=== PATIENT | female | born 1955 | race Caucasian/White ===

== ENCOUNTER 2019-09-08 10:38 | Inpatient (IN) ==
[2019-09-08] MEDS ORDERED: AMIDATE ONE (10:48)
[2019-09-08] MEDS ORDERED: QUELICIN ONE (10:49)
[2019-09-08] MEDS ORDERED: VERSED 100 MG in NS 80 ML IV SCH (11:00)
[2019-09-08] MEDS: NS 1,000 ML IV ONE ×2 (11:01→14:01)
[2019-09-08] MEDS ORDERED: LEVOPHED 8 MG in D5 1/2 NS 250 ML IV SCH ×4 (11:15)
[2019-09-08] MEDS ORDERED: EPINEPHRINE 4 MG in NS 250 ML IV SCH (11:15)
[2019-09-08] MEDS ORDERED: PITRESSIN 40 UNIT in NS 100 ML IV SCH (11:15)
[2019-09-08 11:57] LABS: URINE SOURCE CATH
[2019-09-08 12:01] LABS: BASO# 0.02 X1000 (0.0-0.2); BASO% 0.1 % (0.0-0.8); EOS# 0.01 X1000 (0.0-0.7); EOS% 0.1 % (0.0-10.0); HEMATOCRIT 40.6 % (37.0-47.0); HEMOGLOBIN 12.1 g/dL (12.0-16.0); IMM GRAN# 0.27 X1000 (0.0-0.04); IMM GRAN% 1.8 % (0.0-0.5); LYMPH# 1.86 X1000 (1.2-3.4); LYMPH% 12.2 % (20.5-51.1); MCH 26.7 PG (27-31); MCHC 29.8 g/dL (33-37); MCV 89.6 FL (81-99); MONO# 0.83 X1000 (0.11-0.59); MONO% 5.4 % (1.7-9.3); MPV 10.2 FL (7.4-10.4); NEUT# 12.24 X1000 (1.4-6.5); NEUT% 80.4 % (42.2-75.2); PLT 451 X1000 (130-400); RBC 4.53 XMIL (4.2-5.4); RDW 15.7 % (11.5-14.5); WBC 15.23 X1000 (4.8-10.8)
[2019-09-08 12:06] LABS: INR 1.18; PROTIME 15.2 Seconds (11.0-16.0); PTT 29.3 Seconds (22.3-41.8)
[2019-09-08] MEDS ORDERED: NS 3,000 ML IV ONE (12:08)
--- NOTE | 2019-09-08 12:09 | Diag Imaging Result Doc PS360 ---
CHEST-1 VIEW - 09/08/2019 INDICATION: sepsis COMPARISON: None FINDINGS: There is an endotracheal tube in good position at T3-T4. Lung volumes are critically low. There is nonspecific central atelectasis or infiltrate bilaterally. Heart size is grossly normal. IMPRESSION: Good endotracheal tube placement. Electronically signed by Donny Bustos 09/08/2019 12:07 PM
[2019-09-08 12:13] LABS: BILIRUBIN URINE NEGATIVE (NEGATIVE); BLOOD URINE MODERATE (NEGATIVE); COLOR YELLOW; GLUCOSE URINE >1000 mg/dL (NEGATIVE); KETONE URINE 150 mg/dL (NEGATIVE); LEUKOCYTES URINE NEGATIVE (NEGATIVE); NITRITE URINE NEGATIVE (NEGATIVE); PH URINE 5.5; PROTEIN URINE 200 mg/dL (NEGATIVE); SP GRAVITY URINE 1.025; TURBIDITY URINE CLEAR (CLEAR); UROBILINOGEN URINE NORMAL (NORMAL)
[2019-09-08 12:14] LABS: UR EPITHELIAL CELLS <10 /HPF (<10); URINE BACTERIA NEGATIVE /HPF; URINE RBC <10 /HPF (<10); URINE WBC <10 /HPF (<10)
[2019-09-08] MEDS ORDERED: LEVAQUIN 750 MG/D5W 750 MG/150 ML IVPB IV ONE (12:22)
[2019-09-08] MEDS ORDERED: VANCOMYCIN 1 GM/NS 1 GM/250 ML IVPB IV ONE (12:22)
[2019-09-08] MEDS ORDERED: ZOSYN 4.5 GM in NS 100 ML IV ONE (12:22)
[2019-09-08 12:34] LABS: ALB/GLOB RATIO 1.3; CALCIUM 8.6 mg/dL (8.8-10.2); TOTAL BILIRUBIN 0.31 mg/dL (0.20-1.00)
[2019-09-08] MEDS ORDERED: HUMULIN R IV ONE (12:37)
[2019-09-08 12:53] LABS: CK INDEX 0.6 (0.0-2.5); CK-MB 25.15 ng/mL (0.0-5.0)
[2019-09-08] MEDS ORDERED: QUELICIN IV ONE (12:56)
[2019-09-08] MEDS ORDERED: AMIDATE IV ONE (12:56)
--- NOTE | 2019-09-08 13:25 | Diag Imaging Result Doc PS360 ---
ELBOW 2 VIEWS RIGHT - 09/08/2019 INDICATION: trauma TECHNIQUE: COMPARISON: None FINDINGS: There is some mild soft tissue gas in the anterior surface of the proximal forearm. No foreign body. No fracture or dislocation. Minimal degenerative spurring of the medial elbow. IMPRESSION: No fracture. Mild soft tissue gas in the anterior proximal forearm. Electronically signed by Donny Bustos 09/08/2019 1:23 PM
--- NOTE | 2019-09-08 13:25 | Diag Imaging Result Doc PS360 ---
ELBOW 2 VIEWS LEFT - 09/08/2019 INDICATION: trauma TECHNIQUE: COMPARISON: None FINDINGS: Bones are intact and normally aligned. Joint spaces and soft tissues are clear. IMPRESSION: Negative exam. Electronically signed by Donny Bustos 09/08/2019 1:23 PM
[2019-09-08] MEDS ORDERED: SODIUM BICARBONATE 4.2% IV ONE ×2 (13:52→15:11)
[2019-09-08 14:03] LABS: ALLEN TEST NO; BE -25.6 mmoll (-3.0-3.0); BLOOD TYPE ARTERIAL; METHB 0.3 % (0.0-1.5); O2(CT) 16.4 mL/dL (15.0-23.0); O2HB 98.6 % (95.0-99.0); PCO2(98.6) 26 mmHg (35-45); PO2(98.6) 460 mmHg (60-100); SAMPLE BLOOD; SAO2 100.1 % (95.0-100.0); SRATE 14 BPM; THB 10.9 g/dL (11.5-17.4); TVOL 500 mL
[2019-09-08 14:05] LABS: MODALITY VENTILATOR; pH(98.6) 6.93 (7.35-7.45)
[2019-09-08] MEDS ORDERED: LEVAQUIN 750 MG/D5W 750 MG/150 ML IVPB ONE (14:22)
--- NOTE | 2019-09-08 15:05 | Diag Imaging Result Doc PS360 ---
EXAM : CT HEAD/C-SPINE W/O CONTRAST HISTORY: AMS TECHNIQUE: 1. CT head without contrast 2. CT cervical spine without contrast COMPARISON: None. FINDINGS: Head: No parenchymal hemorrhage. No epidural or subdural hematoma. No subarachnoid hemorrhage. Mild chronic microvascular ischemic changes. No mass identified on this noncontrasted exam. No hydrocephalus. No skull fracture. Cervical spine: There is good alignment to the cervical spine. No precervical soft tissue swelling. No subluxation. No fracture. Small degenerative bone spurs. IMPRESSION: Head: No hemorrhage. No injury. Cervical spine: No acute fracture. This exam was performed using automated exposure control, adjustment of mA or kV according to patient size, and/or use of iterative reconstruction technique. Electronically signed by Daniel Montgomery 09/08/2019 3:03 PM
--- NOTE | 2019-09-08 15:25 | Diag Imaging Result Doc PS360 ---
EXAM: CT T-SPINE/L-SPINE W/O CON HISTORY: Trauma TECHNIQUE: 1. CT thoracic spine without contrast 2. CT lumbar spine without contrast COMPARISON: None. FINDINGS: Thoracic spine: There is good alignment. No fracture. No subluxation. Degenerative bone spurring is found throughout the mid lower thoracic spine. Trace pleural fluid. There is vascular distention. There is a 2 mm nodule either in the inferior right upper lobe or superior right middle lobe on image 157. No pneumothorax Lumbar spine: There is good alignment. No fracture. No subluxation. Small degenerative bone spurs. No aortic aneurysm. No hydronephrosis. IMPRESSION: Thoracic spine: No fracture Lumbar spine: No fracture This exam was performed using automated exposure control, adjustment of mA or kV according to patient size, and/or use of iterative reconstruction technique. Electronically signed by Daniel Montgomery 09/08/2019 3:23 PM
--- NOTE | 2019-09-08 15:29 | Diag Imaging Result Doc PS360 ---
CT ABDOMEN/PELVIS W/O CONTRAST - 09/08/2019 INDICATION: AMS COMPARISON: None FINDINGS: No radiodense renal stones. No hydronephrosis or hydroureter. The gallbladder is not visible. Abdominal organs otherwise appear normal. No free air or free fluid. Duff catheter in the urinary bladder. Uterus is absent. Rectum is normal. There is a benign intramuscular lipoma at the anterior right hip. No bowel obstruction or inflammation. No significant constipation. No visible fractures. IMPRESSION: No acute process. This exam was performed using automated exposure control, adjustment of mA or kV according to patient size, and/or use of iterative reconstruction technique Electronically signed by Donny Bustos 09/08/2019 3:26 PM
--- NOTE | 2019-09-08 15:29 | Diag Imaging Result Doc PS360 ---
EXAM: CT THORAX W/O CONTRAST INDICATION: Trauma TECHNIQUE: This exam was performed using automated exposure control, adjustment of mA or kV according to patient size, and/or use of iterative reconstruction technique. COMPARISON: None. FINDINGS: The patient is intubated. There is bilateral dependent atelectasis +/- infiltrate mainly involving the lower lobes. There is scarring at the right lung apex. There is a 1 cm nonspecific noncalcified nodule in the right perihilar region. Continued surveillance is recommended based on Fleischner Society criteria with an initial follow-up CT in 3 months. There is no significant pleural fluid collection or pneumothorax. There is no abnormal mediastinal fluid collection. There is no cardiomegaly. There are a few old rib fractures involving the sixth, seventh, and eighth ribs on the right anteriorly. No acute rib fracture is appreciated. IMPRESSION: 1.Bilateral dependent atelectasis with suggestion of superimposed infiltrates mainly involving the lower lobes. 2.1 cm noncalcified nodule in the right perihilar region that is nonspecific. Follow-up is recommended based on Fleischner Society criteria. Electronically signed by Rocco Villarreal 09/08/2019 3:27 PM
[2019-09-08] MEDS ORDERED: HUMULIN R 100 UNIT in NS 99 ML IV ONE (15:30)
[2019-09-08] MEDS ORDERED: SODIUM BICARBONATE 8.4% IV ONE (15:53)
[2019-09-08] MEDS ORDERED: ZOFRAN IV PRN (15:57)
[2019-09-08] MEDS ORDERED: SODIUM BICARBONATE 8.4% 150 MEQ in STERILE WATER INJ. 1,000 ML IV SCH (16:45)
--- NOTE | 2019-09-08 16:45 | PROVIDER DOCUMENTATION ---
This chart was entered by Beulah Zuniga Scribe, acting as scribe for Maggie Gomez MD. HPI-Critical Care - General Stated Complaint: unresponsive Time Seen by Provider: 09/08/19 11:00 Patient arrived via EMS?: Yes Source: EMS Allergies/Adverse Reactions: Allergies Allergy/AdvReac Type Severity Reaction Status Date / Time Penicillins Allergy Unknown Verified 09/08/19 12:49 - History of Present Illness-Critical Care Nature of Presenting Problem: 64yof presents to ED by EMS found unresponsive by PD when they went to do a well check. EMS reports pt was last seen on Sunday according to neighbors. EMS reprots pt was found laying on right side, covered in feces, urine, blood sugar over 600 and unresponsive. Review of Systems - Adult - REVIEW OF SYSTEMS - ADULT ROS:: unobtainable per condition Constitutional: reports: no symptoms reported Eyes: reports: no symptoms reported Ears, Nose, Mouth & Throat: reports: no symptoms reported Cardiovascular: reports: no symptoms reported Respiratory: reports: no symptoms reported Gastrointestinal: reports: no symptoms reported Genitourinary: reports: no symptoms reported Musculoskeletal: reports: no symptoms reported Integumentary: reports: no symptoms reported Neurological: reports: no symptoms reported Psychiatric: reports: no symptoms reported Endocrine: reports: no symptoms reported Hematologic/Lymphatic: reports: no symptoms reported Allergic/Immunologic: reports: no symptoms reported All Other Systems: Reviewed and Negative Past History - Adult - PAST MEDICAL HISTORY-ADULT Review of Records: reports: Nursing Assessment Review, Medications Reviewed, Social history reviewed & non-contributory. Major Childhood Illnesses: reports: denies history Cardiovascular: reports: denies history Respiratory: reports: denies history Gastrointestinal: reports: denies history Obstetrical/Gynecological: reports: denies history Genitourinary: reports: denies history Musculoskeletal: reports: denies history Neurological: reports: denies history Endocrine/Immune: reports: denies history Other Conditions: reports: denies history - IMMUNIZATION STATUS Childhood Immunizations: See Nurse Assessment Flu Vaccine: See Nurse Assessment - FAMILY HISTORY Family History: reviewed, not pertinent Physical Exam-General - PHYSICAL EXAM-ADULT Initial Vital Signs Reviewed: Yes (Hypotensive, hypothermic ) - CONSTITUTIONAL General Appearance: obtunded - EYES Eyes: other (Pupils 3 mm and equal) - HEAD, EARS, NOSE, MOUTH & THROAT HENMT: other (Right frontal chronic appearing ulcer) - NECK Neck: supple - RESPIRATORY Respiratory: rales (Diffuse) - CHEST (BREASTS) Chest/Breast: other (Superficial excoriation underneath right breast, erythematous rash underneath both breasts) - GASTROINTESTINAL (ABDOMEN) Abdominal Exam: distended, other (Bruising noted on abdominal wall (x4 quadrants)) - GENITOURINARY Female Genitalia/Pelvic Exam: other (External exam: mild erythematous vulvar and inguinal rash; no skin tears, lacerations or bruising) - LYMPHATIC Lymphatic: no adenopathy - MUSCULOSKELETAL Back Exam: normal inspection Extremity: other (I/O in right lower leg, placed by EMS Bilateral elbow bruising, right knee- chronic appearing coin shaped ulcer w/o evidence of infection) - SKIN Integumentary: other (skin break-down to left anterior knee, and under right breast; ulcer to right knee; multiple bruises to abdomen) - NEUROLOGIC Neurologic: other (GCS 3) Progress - PLAN OF CARE/RESULTS Progress/Plan/Lab Results: Laboratory Results - last 24 hr 09/08/19 09/08/19 09/08/19 11:41 11:41 11:41 WBC RBC Hgb Hct MCV MCH MCHC RDW Std Deviation Plt Count MPV Immature Gran % (Auto) Neut % (Auto) Lymph % (Auto) [place] % (Auto) Eos % (Auto) Baso % (Auto) Immature Gran # (Auto) Neut # (Auto) Lymph # (Auto) [place] # (Auto) Eos # (Auto) Baso # (Auto) PT INR PTT (Actin FS) Specimen Type Sample Site pH pCO2 pO2 HCO3 Base Excess Oxyhemoglobin ABG O2 Sat (Calculated) ABG O2 Saturation ABG Carboxyhemoglobin ABG Methemoglobin Aris Test A-a O2 Difference Total Hemoglobin Lactate Blood Gas Modality Spontaneous Rate FiO2 % Tidal Volume PEEP Sodium 142 Potassium 4.0 Chloride 97 L Carbon Dioxide 6 L Anion Gap 39 BUN 66 H Creatinine 2.0 H Estimated GFR/1.73 m2 25 BUN/Creatinine Ratio 33 Glucose 891 H* POC Glucose Calculated Osmolality 346 Calcium 8.6 L Total Bilirubin 0.31 AST 57 H ALT 33 Alkaline Phosphatase 115 H Creatine Kinase 4184 H Creatine Kinase Index 0.6 CK-MB (CK-2) 25.15 H Troponin T High Sens 31 H Total Protein 7.0 Albumin 4.0 Globulin 3.0 Albumin/Globulin Ratio 1.3 Plasma Lactate 1.5 TSH Urine Source Urine Color Urine Turbidity Urine pH Ur Specific Haskins Urine Protein Ur Glucose (Stick) Ur Ketones (Stick) Urine Blood Urine Nitrite Urine Bilirubin Urobilinogen Dipstick Urine Leukocytes Urine WBC (Auto) Urine RBC (Auto) U Epithel Cells (Auto) Urine Bacteria (Auto) Salicylates Urine Opiates Screen Ur Oxycodone Screen Ur Methadone, Qual Acetaminophen Ur Barbiturates Screen Ur Phencyclidine Scrn Ur Amphetamines Screen U Benzodiazepines Scrn Urine Cocaine Screen U Cannabinoids Screen Acetone Level 09/08/19 09/08/19 09/08/19 11:41 11:41 11:41 WBC 15.23 H RBC 4.53 Hgb 12.1 Hct 40.6 MCV 89.6 MCH 26.7 L MCHC 29.8 L RDW Std Deviation 15.7 H Plt Count 451 H MPV 10.2 Immature Gran % (Auto) 1.8 H Neut % (Auto) 80.4 H Lymph % (Auto) 12.2 L Flagler % (Auto) 5.4 Eos % (Auto) 0.1 Baso % (Auto) 0.1 Immature Gran # (Auto) 0.27 H Neut # (Auto) 12.24 H Lymph # (Auto) 1.86 Flagler # (Auto) 0.83 H Eos # (Auto) 0.01 Baso # (Auto) 0.02 PT 15.2 INR 1.18 PTT (Actin FS) 29.3 Specimen Type Sample Site pH pCO2 pO2 HCO3 Base Excess Oxyhemoglobin ABG O2 Sat (Calculated) ABG O2 Saturation ABG Carboxyhemoglobin ABG Methemoglobin Aris Test A-a O2 Difference Total Hemoglobin Lactate Blood Gas Modality Spontaneous Rate FiO2 % Tidal Volume PEEP Sodium Potassium Chloride Carbon Dioxide Anion Gap BUN Creatinine Estimated GFR/1.73 m2 BUN/Creatinine Ratio Glucose POC Glucose Calculated Osmolality Calcium Total Bilirubin AST ALT Alkaline Phosphatase Creatine Kinase Creatine Kinase Index CK-MB (CK-2) Troponin T High Sens Total Protein Albumin Globulin Albumin/Globulin Ratio Plasma Lactate TSH Urine Source CATH Urine Color YELLOW Urine Turbidity CLEAR Urine pH 5.5 Ur Specific Haskins 1.025 Urine Protein 200 A Ur Glucose (Stick) >1000 A Ur Ketones (Stick) 150 A Urine Blood MODERATE A Urine Nitrite NEGATIVE Urine Bilirubin NEGATIVE Urobilinogen Dipstick NORMAL Urine Leukocytes NEGATIVE Urine WBC (Auto) <10 Urine RBC (Auto) <10 U Epithel Cells (Auto) <10 Urine Bacteria (Auto) NEGATIVE Salicylates Urine Opiates Screen Ur Oxycodone Screen Ur Methadone, Qual Acetaminophen Ur Barbiturates Screen Ur Phencyclidine Scrn Ur Amphetamines Screen U Benzodiazepines Scrn Urine Cocaine Screen U Cannabinoids Screen Acetone Level 09/08/19 09/08/19 09/08/19 11:41 11:41 11:41 WBC RBC Hgb Hct MCV MCH MCHC RDW Std Deviation Plt Count MPV Immature Gran % (Auto) Neut % (Auto) Lymph % (Auto) [place] % (Auto) Eos % (Auto) Baso % (Auto) Immature Gran # (Auto) Neut # (Auto) Lymph # (Auto) [place] # (Auto) Eos # (Auto) Baso # (Auto) PT INR PTT (Actin FS) Specimen Type Sample Site pH pCO2 pO2 HCO3 Base Excess Oxyhemoglobin ABG O2 Sat (Calculated) ABG O2 Saturation ABG Carboxyhemoglobin ABG Methemoglobin Aris Test A-a O2 Difference Total Hemoglobin Lactate Blood Gas Modality Spontaneous Rate FiO2 % Tidal Volume PEEP Sodium Potassium Chloride Carbon Dioxide Anion Gap BUN Creatinine Estimated GFR/1.73 m2 BUN/Creatinine Ratio Glucose POC Glucose Calculated Osmolality Calcium Total Bilirubin AST ALT Alkaline Phosphatase Creatine Kinase Creatine Kinase Index CK-MB (CK-2) Troponin T High Sens Total Protein Albumin Globulin Albumin/Globulin Ratio Plasma Lactate TSH Urine Source Urine Color Urine Turbidity Urine pH Ur Specific Haskins Urine Protein Ur Glucose (Stick) Ur Ketones (Stick) Urine Blood Urine Nitrite Urine Bilirubin Urobilinogen Dipstick Urine Leukocytes Urine WBC (Auto) Urine RBC (Auto) U Epithel Cells (Auto) Urine Bacteria (Auto) Salicylates < 3.00 L Urine Opiates Screen NONE DETECTED Ur Oxycodone Screen NONE DETECTED Ur Methadone, Qual NONE DETECTED Acetaminophen < 1.2 L Ur Barbiturates Screen NONE DETECTED Ur Phencyclidine Scrn NONE DETECTED Ur Amphetamines Screen NONE DETECTED U Benzodiazepines Scrn NONE DETECTED Urine Cocaine Screen NONE DETECTED U Cannabinoids Screen NONE DETECTED Acetone Level SMALL A 09/08/19 09/08/19 09/08/19 13:30 13:40 15:23 WBC RBC Hgb Hct MCV MCH MCHC RDW Std Deviation Plt Count MPV Immature Gran % (Auto) Neut % (Auto) Lymph % (Auto) [place] % (Auto) Eos % (Auto) Baso % (Auto) Immature Gran # (Auto) Neut # (Auto) Lymph # (Auto) [place] # (Auto) Eos # (Auto) Baso # (Auto) PT INR PTT (Actin FS) Specimen Type ARTERIAL Sample Site R BRACHIAL pH 6.93 L* pCO2 26 L pO2 460 H HCO3 5.0 L Base Excess -25.6 L Oxyhemoglobin 98.6 ABG O2 Sat (Calculated) 16.4 ABG O2 Saturation 100.1 H ABG Carboxyhemoglobin 1.20 ABG Methemoglobin 0.3 Aris Test NO A-a O2 Difference 221.0 Total Hemoglobin 10.9 L Lactate 0.90 Blood Gas Modality VENTILATOR Spontaneous Rate 14 FiO2 % 100.0 Tidal Volume 500 PEEP 5.0 Sodium Potassium Chloride Carbon Dioxide Anion Gap BUN Creatinine Estimated GFR/1.73 m2 BUN/Creatinine Ratio Glucose POC Glucose 500 H Calculated Osmolality Calcium Total Bilirubin AST ALT Alkaline Phosphatase Creatine Kinase Creatine Kinase Index CK-MB (CK-2) Troponin T High Sens Total Protein Albumin Globulin Albumin/Globulin Ratio Plasma Lactate TSH 1.36 Urine Source Urine Color Urine Turbidity Urine pH Ur Specific Haskins Urine Protein Ur Glucose (Stick) Ur Ketones (Stick) Urine Blood Urine Nitrite Urine Bilirubin Urobilinogen Dipstick Urine Leukocytes Urine WBC (Auto) Urine RBC (Auto) U Epithel Cells (Auto) Urine Bacteria (Auto) Salicylates Urine Opiates Screen Ur Oxycodone Screen Ur Methadone, Qual Acetaminophen Ur Barbiturates Screen Ur Phencyclidine Scrn Ur Amphetamines Screen U Benzodiazepines Scrn Urine Cocaine Screen U Cannabinoids Screen Acetone Level Orders Category Date Time Status Admit [facility] Routine AdmDCTranf 09/08/19 15:57 Active Activity - Strict Bedrest ORDERED Care 09/08/19 15:57 Active Apply Mechanical Device [QM] ORDERED Care 09/08/19 18:07 Active Cardiac Monitoring NOW Care 09/08/19 11:12 Completed Central Line Placement per MD/ NOW Care 09/08/19 11:44 Completed Check glucose DIRECTED Care 09/08/19 14:24 Completed DVT/PE Risk Assess/Protocol [QM] ORDERED Care 09/08/19 11:01 Completed Duff Cath Insertion ORDERED Care 09/08/19 11:01 Active IV Insertion ORDERED Care 09/08/19 11:01 Completed IV Insertion NOW Care 09/08/19 11:12 Completed Intake and Output-Strict ORDERED Care 09/08/19 11:01 Active Notify Physician ORDERED Care 09/08/19 11:01 Active Notify Physician if: ORDERED Care 09/08/19 11:01 Active Notify Provider of NEWS Score NOW Care 09/08/19 11:12 Active Nursing- MD Consult Request ROUTINE Care 09/08/19 15:57 Completed Pelvic set up DIRECTED Care 09/08/19 14:24 Completed Resuscitation Status Routine Care 09/08/19 15:47 Ordered Sepsis Bolus Completion ORDERED Care 09/08/19 11:01 Completed Vital Signs Order Q1H Care 09/08/19 18:07 Completed Vital Signs Order Q30M Care 09/08/19 11:01 Completed Z-Document. for Tele Applied ORDERED Care 09/08/19 18:07 Completed Physician/Provider Consults Routine Cons 09/08/19 15:57 Ordered Social Service Consult Routine Cons 09/08/19 18:07 Active NPO Diet 09/08/19 15:59 Active CHEST-1 VIEW [RAD] Stat Exams 09/08/19 11:12 Completed CHEST-PORTABLE [RAD] Routine Exams 09/09/19 06:[address] ABDOMEN/PELVIS W/O CONTRAST [CT] Stat Exams 09/08/19 12:[address] HEAD/C-SPINE W/O CONTRAST [CT] Stat Exams 09/08/19 11:[address] T-SPINE/L-SPINE W/O CON [CT] Stat Exams 09/08/19 12:[address] THORAX W/O CONTRAST [CT] Stat Exams 09/08/19 12:47 Completed ELBOW 2 VIEWS LEFT [RAD] Stat Exams 09/08/19 12:53 Completed ELBOW 2 VIEWS RIGHT [RAD] Stat Exams 09/08/19 12:53 Completed ABG [RESP] Routine Lab 09/08/19 13:30 Completed ACETAMINOPHEN [TDM] Stat Lab 09/08/19 11:41 Completed BLOOD CULTURE [BLDCUL] Stat Lab 09/08/19 13:40 Results CBC WITH DIFF [HEME] Q24H Lab 09/09/19 06:00 Ordered CBC WITH DIFF [HEME] Q24H Lab 09/10/19 06:00 Ordered CBC WITH DIFF [HEME] Q24H Lab 09/11/19 06:00 Ordered CBC WITH DIFF [HEME] Q24H Lab 09/12/19 06:00 Ordered CBC WITH DIFF [HEME] Q24 Lab 09/13/19 06:00 Ordered CBC WITH DIFF [HEME] Q24 Lab 09/14/19 06:00 Ordered CBC WITH DIFF [HEME] Q24 Lab 09/15/19 06:00 Ordered CBC WITH DIFF [HEME] Stat Lab 09/08/19 11:45 Completed CK PROFILE [SP CHEM] Stat Lab 09/08/19 11:41 Completed COMPREHENSIVE METABOLIC PANEL [CHEM] Q24 Lab 09/09/19 06:00 Ordered COMPREHENSIVE METABOLIC PANEL [CHEM] Q24 Lab 09/10/19 06:00 Ordered COMPREHENSIVE METABOLIC PANEL [CHEM] Q24 Lab 09/11/19 06:00 Ordered COMPREHENSIVE METABOLIC PANEL [CHEM] Q24 Lab 09/12/19 06:00 Ordered COMPREHENSIVE METABOLIC PANEL [CHEM] Q24 Lab 09/13/19 06:00 Ordered COMPREHENSIVE METABOLIC PANEL [CHEM] Q24 Lab 09/14/19 06:00 Ordered COMPREHENSIVE METABOLIC PANEL [CHEM] Q24 Lab 09/15/19 06:00 Ordered COMPREHENSIVE METABOLIC PANEL [CHEM] Stat Lab 09/08/19 11:41 Completed Ketone [ACETONE SERUM] [CHEM] Stat Lab 09/08/19 11:41 Completed LACTATE, PLASMA [CHEM] Lab 09/08/19 17:16 Completed LACTATE, PLASMA [CHEM] [facility] Lab 09/08/19 11:41 Completed MAGNESIUM [CHEM] Q24 Lab 09/09/19 06:00 Ordered MAGNESIUM [CHEM] Q24 Lab 09/10/19 06:00 Ordered MAGNESIUM [CHEM] Q24 Lab 09/11/19 06:00 Ordered MAGNESIUM [CHEM] Q24 Lab 09/12/19 06:00 Ordered MAGNESIUM [CHEM] Q24 Lab 09/13/19 06:00 Ordered MAGNESIUM [CHEM] Q24 Lab 09/14/19 06:00 Ordered MAGNESIUM [CHEM] Q24 Lab 09/15/19 06:00 Ordered PROTIME WITH INR [COAG] Stat Lab 09/08/19 11:45 Completed PTT [COAG] Stat Lab 09/08/19 11:41 Completed SALICYLATES [TDM] Stat Lab 09/08/19 11:41 Completed SPUTUM CULTURE WITH GRAM STAIN [RM] Routine Lab 09/08/19 16:18 Results TROPONIN T HIGH SENSITIVITY Stat Lab 09/08/19 11:45 Completed TSH Stat Lab 09/08/19 13:40 Completed URINALYSIS W/POSS RFLX CULT [URINALYSIS] Stat Lab 09/08/19 11:53 Completed URINE DRUG SCREEN Stat Lab 09/08/19 11:41 Completed 0.9% Sodium Chloride Inj [Ns] 1,000 ml Med 09/08/19 11:01 Discontinued IV 999 mls/hr 0.9% Sodium Chloride Inj [Ns] 100 ml Med 09/08/19 11:15 Active Vasopressin [Pitressin] 40 unit IV As Directed mls/hr 0.9% Sodium Chloride Inj [Ns] 250 ml Med 09/08/19 11:15 Active Epinephrine 4 mg IV As Directed mls/hr 0.9% Sodium Chloride Inj [Ns] 3,000 ml Med 09/08/19 12:08 Discontinued IV Per Protocol mls/hr 0.9% Sodium Chloride Inj [Ns] 80 ml Med 09/08/19 11:00 Discontinued Midazolam [Versed] 100 mg IV As Directed mls/hr 0.9% Sodium Chloride Inj [Ns] 99 ml Med 09/08/19 15:30 Discontinued Insulin Human Regular [Humulin R] 100 unit IV Per Protocol mls/hr Acetaminophen [Tylenol] Med 09/08/19 15:57 Active 650 mg PO Q6H PRN PRN Albuterol 2.5MG/Ipratrop 0.5MG [Duoneb (A & A)] Med 09/08/19 19:30 Active 3 ml INH RTQ4H Budesonide [Pulmicort] Med 09/08/19 19:30 Active 0.5 mg INH RTBID Dextrose 5%-0.45% NaCl Inj [D5 1/2 Ns] 250 ml Med 09/08/19 11:15 Active Norepinephrine [Levophed] 8 mg IV As Directed mls/hr Etomidate [Amidate] Med 09/08/19 12:56 Discontinued 20 mg IV NOW ONE Etomidate [Amidate] Med 09/08/19 10:48 Discontinued 40 mg .ROUTE .STK-MED ONE Insulin Human Regular [Humulin R] Med 09/08/19 12:37 Discontinued 12 unit IV NOW ONE Levofloxacin 750 mg/D5w [Levaquin 750 mg/D5w] Med 09/08/19 14:22 Discontinued 750 mg in 150 ml .ROUTE As directed Levofloxacin 750 mg/D5w [Levaquin 750 mg/D5w] Med 09/08/19 12:22 Discontinued 750 mg in 150 ml IV NOW Linezolid 600 mg/D5w [Zyvox 600 mg/D5w] Med 09/08/19 16:15 Active 600 mg in 300 ml IV Q12H Meropenem [Merrem] 500 mg Med 09/08/19 16:15 Active 0.9% Sodium Chloride Inj [Ns] 50 ml IV Q8H Ondansetron [Zofran] Med 09/08/19 15:57 Active 4 mg IV Q4H PRN PRN Piperacillin/Tazobactam [Zosyn] 4.5 gm Med 09/08/19 12:22 Discontinued 0.9% Sodium Chloride Inj [Ns] 100 ml IV NOW Sodium Bicarbonate 4.2% Med 09/08/19 13:52 Discontinued 5 meq IV NOW ONE Sodium Bicarbonate 4.2% Med 09/08/19 15:11 Discontinued 5 meq IV NOW ONE Sodium Bicarbonate 8.4% Med 09/08/19 15:53 Discontinued 50 meq IV NOW ONE Succinylcholine [Quelicin] Med 09/08/19 12:56 Discontinued 100 mg IV NOW ONE Succinylcholine [Quelicin] Med 09/08/19 10:49 Discontinued 200 mg .ROUTE .STK-MED ONE Vancomycin 1 gm/Ns Med 09/08/19 12:22 Discontinued 1 gm in 250 ml IV NOW Aerosol Treatments Routine Ot 09/08/19 15:57 Completed O2 Per Protocol Stat Ot 09/08/19 11:12 Completed Pulse Oximetry Routine Ot 09/08/19 15:57 Completed Telemetry [OM.EQ] Routine Oth 09/08/19 18:07 Active Ventilator Order Routine Ot 09/08/19 15:07 Active EKG [EKG] Routine Ther 09/09/19 08:00 Ordered Echo Spec/Color Doppler Routine Ther 09/09/19 07:00 Ordered Transfer/Admit Order [TRANSFER] Routine Transfer 09/08/19 15:45 Completed 1056-Atomodate 1057-Succs 1058- Intubation; secured 7.5inch, 22@lip and good color change Result Diagrams: 09/08/19 11:41 09/08/19 19:27 - XRAY 1 XRAY: Bilateral Impression: See EMR Report (CHEST-1 VIEW - 09/08/2019 INDICATION: sepsis COMP ARISON: None FINDINGS: There is an endotracheal tube in good position at T3- T4. Lung volumes are critically low. There is nonspecific central atelectasis or infiltrate bilaterally. Heart size is grossly normal. IMPRESSION: Good endotracheal tube placement. Electronically signed by Donny Bustos 09/08/2019 12:07 PM 09/08/19 1207 Interpreting Physician: Donny Bustos MD Dictated Date/Time: 09/08/19 1200) 2 XRAY: Right XRAY Study: Elbow Impression: See EMR Report (IMPRESSION: No fracture. Mild soft tissue gas in the anterior proximal forearm. Electronically signed by Donny Bustos 09/08/2019 1 :23 PM) 3 XRAY: Left XRAY Study: Elbow Impression: See EMR Report (IMPRESSION: Negative exam. Electronically signed b y Donny Bustos 09/08/2019 1:23 PM) - CT/MRI 1 CT Study: Head Impression: See EMR Report (EXAM : CT HEAD/C-SPINE W/O CONTRAST HISTORY: AMS TECHNIQUE: 1. CT head without contrast 2. CT cervical spine without contrast COMPARISON: None. FINDINGS: Head: No parenchymal hemorrhage. No epidural or subdural hematoma. No subarachnoid hemorrhage. Mild chronic microvascular ischemic changes. No mass identified on this noncontrasted exam. No hydrocephalus. No skull fracture. Cervical spine: There is good alignment to the cervical spine. No precervical soft tissue swelling. No subluxation. No fracture. Small degenerative bone spurs. IMPRESSION: Head: No hemorrhage. No injury. Cervical spine: No acute fracture. This exam was performed using automated exposure control, adjustment of mA or kV according to patient size, and/or use of iterative reconstruction technique. Electronically signed by Daniel Montgomery 09/08/2019 3:03 PM 09/08/19 1503 Interpreting Physician: Daniel Montgomery MD Dictated Date/Time: 09/08/19 [id number]) 2 CT Study: Lumbar Spine, Thorax Impression: See EMR Report (IMPRESSION: Thoracic spine: No fracture Lumbar spine: No fracture This exam was performed using automated exposure control, adjustment of mA or kV according to patient size, and/or use of iterative reconstruction technique. Electronically signed by Daniel Montgomery 09/08/2019 3:23 PM) 3 CT Study: Abdomen, Pelvis Impression: See EMR Report (IMPRESSION: No acute process. This exam was performed using automated exposure control, adjustment of mA or kV according to patient size, and/or use of iterative reconstruction technique Electronically signed by Donny Bustos 09/08/2019 3:26 PM) 4 CT Study: other (chest) Impression: See EMR Report (IMPRESSION: 1.Bilateral dependent atelectasis with suggestion of superimposed infiltrates mainly involving the lower lobes. 2.1 cm noncalcified nodule in the right perihilar region that is nonspecific. Follow-up is recommended based on Fleischner Society criteria. Electronically signed by Rocco Villarreal 09/08/2019 3:27 PM 09/08/19 1527) - CONSULTS/PCP/HOSPITALIST Notification #1 *Consult/PCP/Hospitalist*: Hospitalist Time Discussed: 15:45 Consult Disposition: Admit (Dr. Garcia) #2 Consult: Clark Magaña/S.ACarlaNCarlaECarla Nurse Time Discussed: 16:42 Consult Disposition: other (advised that there is a 72hr window allowed for Evidence collection so contact the local police to see if they want collection then call her back if wanted) Procedures - INTUBATION Time of Intubation: 10:58 Intubation Method: orotracheal Equipment: Glidescope Tube Size (cm): 7.5 Pretreated with 100% Oxygen?: Yes Breath Sounds after Intubation: equal Intubation Complications: no complications Vent Settings: See Respiratory Therapy Notes Procedure Comment: good color change; secured 21@lip Departure - Departure Date of Disposition Decision: 09/08/19 Time of Disposition Decision: 12:24 DIAGNOSIS: Metabolic acidosis Sepsis Qualifiers: Sepsis type: sepsis due to unspecified organism Sepsis acute organ dysfunction status: with acute organ dysfunction Acute respiratory failure type: with hypoxia Severe sepsis shock status: without septic shock Pneumonia Qualifiers: Pneumonia type: due to unspecified organism Laterality: bilateral Lung location: lower lobe of lung Qualified Code(s): J18.1 - Lobar pneumonia, unspecified organism Altered mental status Qualifiers: Altered mental status type: coma Coma depth: Jessi coma 3-8 Coma timing: at arrival to emergency department Qualified Code(s): R40.2432 - Jessi coma scale score 3-8, at arrival to emergency department Disposition: ADMITTED INPATIENT 09 Certified Medical Emergency: Emergent Condition: Critical - Critical Care Note This patient required my direct & personal management of CC.: Yes Total Time (mins): 360 Critical Care Statement: This patient required my direct personal management to treat or rule out processes, the absence of which, could potentiallly result in sudden, clinically significant life or limb threatening deterioration. Attestation - Physician/ ANDREW Attestation Patient care was provided by Advanced Practice Provider:: No The physician spent face to face time with patient:: Yes Advanced Practice Provider documentation review:: Supervising physician onsite and consulted in the evaluation and care of this patient. The physician did have a face to face encounter with the patient. This chart was documented by the indicated scribe, (Beulah Zuniga, Cindy) and accurately reflects the services I performed and decisions made by me, Maggie Gomez MD, as attested by the provider's signature.
[2019-09-08] MEDS: ZYVOX 600 MG/D5W 600 MG/300 ML IVPB IV SCH (17:18)
[2019-09-08 17:22] LABS: ACETAMINOPHEN < 1.2 ug/mL (10-30); SALICYLATES < 3.00 mg/dL (3-10); UR AMPHETAMINES QUAL NONE DETECTED (NONE DETECT); UR BARBITUATES QUAL NONE DETECTED (NONE DETECT); UR BENZODIAZEPIN QUAL NONE DETECTED (NONE DETECT); UR CANNABINOIDS QUAL NONE DETECTED (NONE DETECT); UR COCAINE QUAL NONE DETECTED (NONE DETECT); UR METHADONE QUAL NONE DETECTED (NONE DETECT); UR OPIATES QUAL NONE DETECTED (NONE DETECT); UR OXYCODONE QUAL NONE DETECTED (NONE DETECT); UR PCP QUAL NONE DETECTED (NONE DETECT)
[2019-09-08] MEDS ORDERED: D5 1/2 NS 1,000 ML IV PRN (18:34)
[2019-09-08] MEDS ORDERED: D50W SYRINGE IV PRN (18:34)
[2019-09-08 18:39] LABS: ALLEN TEST YES; BE -19.6 mmoll (-3.0-3.0); BLOOD TYPE ARTERIAL; HCO3-(ACT) 9.7 mmoll (20.0-26.0); METHB 0.8 % (0.0-1.5); O2(CT) 17.2 mL/dL (15.0-23.0); O2HB 97.8 % (95.0-99.0); PO2(98.6) 485 mmHg (60-100); SAMPLE BLOOD; SAO2 99.4 % (95.0-100.0); SRATE 15 BPM; THB 11.5 g/dL (11.5-17.4); TVOL 500 mL
[2019-09-08 18:40] LABS: pH(98.6) 7.19 (7.35-7.45)
[2019-09-08 18:41] LABS: MODALITY VENTILATOR; PCO2(98.6) 17 mmHg (35-45)
[2019-09-08] MEDS: MERREM 500 MG in NS 50 ML IV SCH (18:48)
[2019-09-08] MEDS ORDERED: POTASSIUM CHLORIDE 20% LIQUID PO PRN (19:20)
[2019-09-08] MEDS ORDERED: POTASSIUM CHLORIDE 40 MEQ/SWI 40 MEQ/100 ML IVPB IV PRN (19:20)
[2019-09-08] MEDS ORDERED: SODIUM PHOSPHATE 30 MMOL in D5W 250 ML IV PRN (19:20)
[2019-09-08] MEDS ORDERED: POTASSIUM CHLORIDE 10% LIQUID PO PRN (19:20)
[2019-09-08] MEDS ORDERED: SODIUM BICARBONATE 8.4% 100 MEQ in STERILE WATER INJ. 500 ML IV PRN (19:20)
[2019-09-08] MEDS ORDERED: MAGNESIUM SULFATE 2 GM/S.W.I. 2 GM/50 ML IVPB IV PRN (19:20)
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
[2019-09-08] MEDS: DUONEB (A & A) INH SCH ×2 (19:50→23:30)
[2019-09-08] MEDS: PULMICORT INH SCH (19:50)
[2019-09-08 19:56] LABS: UR CREAT RANDOM 35.9 mg/dL (11-20); UR PROT RANDOM 65.7 mg/dL
[2019-09-08 20:16] LABS: INR 1.1; PROTIME 14.4 Seconds (11.0-16.0)
[2019-09-08 20:18] LABS: MAGNESIUM 2.3 mg/dL (1.5-2.7); PHOSPHORUS 4.5 mg/dL (2.7-4.5)
[2019-09-08 20:37] LABS: ALBUMIN 3.2 g/dL (3.5-5.0); CALCIUM 7.6 mg/dL (8.8-10.2); CREATININE 1.8 mg/dL (0.5-0.9); POTASSIUM 2.5 mmol/L (3.5-5.1); TOTAL BILIRUBIN 0.31 mg/dL (0.20-1.00); TOTAL PROTEIN 6.4 g/dL (6.3-8.3)
[2019-09-08 20:49] LABS: HEMOGLOBIN A1C 11.5 % (4.8-6.0)
--- NOTE | 2019-09-08 20:58 | Diag Imaging Result Doc PS360 ---
EXAM: KNEE 1-2 VIEWS-LEFT HISTORY: knee contusion TECHNIQUE: Two views COMPARISON: None. FINDINGS: Prior orthopedic replacement of the knee. Good alignment to the femoral and tibial components. No fracture. No dislocation. IMPRESSION: No acute abnormality. Electronically signed by Daniel Montgomery 09/08/2019 8:55 PM
--- NOTE | 2019-09-08 20:59 | Diag Imaging Result Doc PS360 ---
EXAM: KNEE 1-2 VIEWS-RIGHT HISTORY: knee contusion TECHNIQUE: Two views COMPARISON: None. FINDINGS: No fracture. No dislocation. Mild joint space narrowing. IMPRESSION: Mild arthritis Electronically signed by Daneil Montgomery 09/08/2019 8:56 PM
[2019-09-08] MEDS: POTASSIUM CHLORIDE 20 MEQ/SWI 20 MEQ/100 ML IVPB IV SCH ×2 (21:07→23:14)
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
[2019-09-08] MEDS: HUMULIN R 100 UNIT in NS 100 ML IV SCH (22:29)
[2019-09-08 22:36] LABS: ALLEN TEST YES; BE -10.5 mmoll (-3.0-3.0); BLOOD TYPE ARTERIAL; HCO3-(ACT) 16.8 mmoll (20.0-26.0); METHB 0.7 % (0.0-1.5); O2(CT) 13.8 mL/dL (15.0-23.0); O2HB 97.7 % (95.0-99.0); PCO2(98.6) 23 mmHg (35-45); PO2(98.6) 201 mmHg (60-100); SAMPLE BLOOD; SAO2 99.6 % (95.0-100.0); SRATE 14 BPM; THB 9.7 g/dL (11.5-17.4); TVOL 650 mL; pH(98.6) 7.37 (7.35-7.45)
[2019-09-08 22:39] LABS: MODALITY VENTILATOR
--- NOTE | 2019-09-08 22:54 | EKG Report ---
Test Performed on : 09/08/2019 10:17:04 PM Test Reason : unresponsive Blood Pressure : / mmHG Vent. Rate : 110 BPM Atrial Rate : 110 BPM P-R Int : 138 ms QRS Dur : 096 ms QT Int : 342 ms P-R-T Axes : 051 043 192 degrees QTc Int : [address] & T wave abnormality, consider inferolateral ischemia Abnormal ECG No previous ECGs available Confirmed by Marcus Jerez MD ([id number]) on 09/09/2019 7:31:18 AM
[2019-09-08 23:22] LABS: CALCIUM 7.9 mg/dL (8.8-10.2); CREATININE 1.7 mg/dL (0.5-0.9); PHOSPHORUS 2.6 mg/dL (2.7-4.5)
[2019-09-08 23:23] LABS: POTASSIUM 2.5 mmol/L (3.5-5.1)
[2019-09-08] MEDS: PROTONIX IV SCH (23:25)
[2019-09-08] MEDS: LOVENOX SUBQ SCH (23:25)
[2019-09-08] MEDS: SODIUM CHLORIDE 0.9% INJ SCH (23:25)
[2019-09-08] MEDS: SODIUM BICARBONATE IV SCH (23:28)
[2019-09-08] MEDS: STERILE WATER IV SCH (23:28)
[2019-09-09] MEDS: MERREM 500 MG in NS 50 ML IV SCH ×3 (00:54→16:06)
[2019-09-09 01:28] LABS: BLOOD TYPE ARTERIAL; SAMPLE BLOOD
[2019-09-09 01:30] LABS: BE -6.4 mmoll (-3.0-3.0); HCO3-(ACT) 19.9 mmoll (20.0-26.0); PCO2(98.6) 23 mmHg (35-45); PO2(98.6) 158 mmHg (60-100); SAO2 98.7 % (95.0-100.0); THB 11.4 g/dL (11.5-17.4); pH(98.6) 7.45 (7.35-7.45)
[2019-09-09 01:31] LABS: METHB 1.3 % (0.0-1.5); MODALITY VENTILATOR; O2(CT) 15.8 mL/dL (15.0-23.0); O2HB 96.7 % (95.0-99.0); SRATE 14 BPM
[2019-09-09 01:32] LABS: ALLEN TEST YES; TVOL 650 mL
[2019-09-09 02:55] LABS: CALCIUM 7.9 mg/dL (8.8-10.2); MAGNESIUM 1.8 mg/dL (1.5-2.7); PHOSPHORUS 2.2 mg/dL (2.7-4.5); POTASSIUM 2.9 mmol/L (3.5-5.1)
[2019-09-09] MEDS: POTASSIUM CHLORIDE 20 MEQ/SWI 20 MEQ/100 ML IVPB IV SCH ×2 (03:21→05:10)
[2019-09-09] MEDS: STERILE WATER IV SCH (03:21)
[2019-09-09] MEDS: ZYVOX 600 MG/D5W 600 MG/300 ML IVPB IV SCH ×2 (03:21→16:06)
[2019-09-09] MEDS: SODIUM BICARBONATE IV SCH (03:21)
[2019-09-09] MEDS: ATIVAN IV PRN ×2 (03:32→15:20)
[2019-09-09] MEDS ORDERED: LEVETIRACETAM IV SCH (03:45)
[2019-09-09] MEDS ORDERED: SODIUM CHLORIDE IV SCH (03:45)
[2019-09-09] MEDS: DUONEB (A & A) INH SCH ×5 (03:51→23:41)
[2019-09-09] MEDS: KEPPRA 500 MG/NS 500 MG/100 ML IVPB IV SCH ×2 (04:03→16:06)
[2019-09-09 05:22] LABS: ALLEN TEST YES; BE -4.5 mmoll (-3.0-3.0); BLOOD TYPE ARTERIAL; HCO3-(ACT) 21.5 mmoll (20.0-26.0); METHB 0.3 % (0.0-1.5); O2HB 98.2 % (95.0-99.0); PCO2(98.6) 25 mmHg (35-45); PO2(98.6) 145 mmHg (60-100); SAMPLE BLOOD; SAO2 100.7 % (95.0-100.0); SRATE 14 BPM; THB 9.2 g/dL (11.5-17.4); TVOL 650 mL; pH(98.6) 7.47 (7.35-7.45)
[2019-09-09 05:23] LABS: MODALITY VENTILATOR
--- NOTE | 2019-09-09 06:38 | Diag Imaging Result Doc PS360 ---
EXAM: CHEST-PORTABLE HISTORY: pna; resp failure TECHNIQUE: Single view COMPARISON: 09/08/2019 FINDINGS: Endotracheal tube in good position. The lungs are well expanded. No cardiomegaly. No pulmonary edema. No pleural effusions identified. IMPRESSION: Interval improvement Electronically signed by Daniel Montgomery 09/09/2019 6:36 AM
[2019-09-09 07:26] LABS: EOS# 0.01 X1000 (0.0-0.7); EOS% 0.2 % (0.0-10.0); HEMATOCRIT 33.3 % (37.0-47.0); HEMOGLOBIN 10.7 g/dL (12.0-16.0); IMM GRAN# 0.02 X1000 (0.0-0.04); IMM GRAN% 0.3 % (0.0-0.5); LYMPH# 0.27 X1000 (1.2-3.4); LYMPH% 4.3 % (20.5-51.1); MCH 26.5 PG (27-31); MCHC 32.1 g/dL (33-37); MCV 82.4 FL (81-99); MONO# 1.04 X1000 (0.11-0.59); MONO% 16.5 % (1.7-9.3); NEUT# 4.97 X1000 (1.4-6.5); NEUT% 78.7 % (42.2-75.2); PLT 294 X1000 (130-400); RBC 4.04 XMIL (4.2-5.4); RDW 14.9 % (11.5-14.5); WBC 6.31 X1000 (4.8-10.8)
--- NOTE | 2019-09-09 07:59 | EKG Report ---
Test Performed on : 09/09/2019 07:00:40 AM Test Reason : chest pain Blood Pressure : / mmHG Vent. Rate : 116 BPM Atrial Rate : 116 BPM P-R Int : 126 ms QRS Dur : 090 ms QT Int : 354 ms P-R-T Axes : 049 041 180 degrees QTc Int : 492 ms Sinus tachycardia. Cannot rule out Anterior infarct , age undetermined T wave abnormality, consider inferior ischemia Abnormal ECG When compared with ECG of 08-SEP-2019 22:17, (Unconfirmed) No significant change was found Confirmed by Marcus Jerez MD ([id number]) on 09/09/2019 4:19:31 PM
[2019-09-09 08:08] LABS: ALB/GLOB RATIO 1.2; ALBUMIN 3.1 g/dL (3.5-5.0); CALCIUM 7.6 mg/dL (8.8-10.2); MAGNESIUM 1.8 mg/dL (1.5-2.7); PHOSPHORUS 2.5 mg/dL (2.7-4.5); POTASSIUM 3.5 mmol/L (3.5-5.1); TOTAL BILIRUBIN 0.27 mg/dL (0.20-1.00); TOTAL PROTEIN 5.6 g/dL (6.3-8.3)
[2019-09-09] MEDS: PULMICORT INH SCH ×2 (08:33→19:46)
[2019-09-09] MEDS: HUMULIN R 100 UNIT in NS 100 ML IV SCH (09:03)
[2019-09-09] MEDS: POTASSIUM CHLORIDE 20 MEQ/SWI 20 MEQ/100 ML IVPB IV PRN (09:03)
[2019-09-09] MEDS ORDERED: NS 250 ML ONE (09:37)
[2019-09-09] MEDS: 1/2 NS 1,000 ML IV SCH ×2 (10:42→17:49)
[2019-09-09 11:42] LABS: CALCIUM 7.1 mg/dL (8.8-10.2); MAGNESIUM 1.6 mg/dL (1.5-2.7); PHOSPHORUS 2.3 mg/dL (2.7-4.5); POTASSIUM 3.2 mmol/L (3.5-5.1)
[2019-09-09] MEDS ORDERED: LANTUS INSULIN SUBQ ONE (11:50)
[2019-09-09] MEDS ORDERED: POTASSIUM PHOSPHATE 40 MEQ in NS 250 ML IV ONE (11:57)
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
[2019-09-09] MEDS: HUMULIN R SUBQ SCH ×3 (12:14→20:15)
[2019-09-09] MEDS: SANTYL OINT TOP SCH (12:28)
[2019-09-09] MEDS ORDERED: LABETALOL IV PRN (13:22)
[2019-09-09] MEDS ORDERED: CEREBYX IV ONE ×2 (15:11→16:00)
[2019-09-09] MEDS ORDERED: NS IV ONE ×2 (16:00→22:21)
--- NOTE | 2019-09-09 16:00 | Diag Imaging Result Doc PS360 ---
EXAM: US RENAL 2 (RETROPER) COMPLETE - 09/09/2019 HISTORY: artur/arf TECHNIQUE: Bilateral renal ultrasound COMPARISON: None. FINDINGS: The right kidney measures 11.4 x 5.1 x 6.1 cm in size, and has cortical thickness of approximately 1.3 cm. The left kidney measures 11.7 x 4.9 x 6.1 cm in size, and has cortical thickness of approximately 1.3 cm. There is no renal mass, stone, or hydronephrosis identified. The urinary bladder is decompressed by Dfuf catheter and is not evaluated. IMPRESSION: No visible renal abnormality. Electronically signed by Fareed Luciano 09/09/2019 3:57 PM
--- NOTE | 2019-09-09 16:25 | PROGRESS NOTE ---
DATE: 09/09/2019 ADDENDUM: 1. Diabetic ketoacidosis, we feel like that is resolved. We switched her to regular insulin. 2. Agree with acute kidney injury that is stabilizing. 3. Neurological. She appears to be have suffered anoxic injury. She has decerebrate posturing. Her cranial nerves are compromise corneal, gag, oculocephalic all those things. I feel like there has probably been a significant injury there. She has developed seizures for which we have given her Keppra which we will continue and then and neurology is going to follow and we will see what happens after the EEG. 4. I am concerned about compartment syndrome in her left arm. We will have a surgical evaluation and go from there. PROGNOSIS: Overall prognosis is poor. Did not update family but I did not see family members. I think her son is our only living relative and he is coming in for evaluation so we will touch base with him when available. cc: Jorge Garcia MD
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
[2019-09-09] MEDS ORDERED: ATIVAN IV ONE ×2 (18:25→21:51)
--- NOTE | 2019-09-09 18:58 | Diag Imaging Result Doc PS360 ---
HAND COMPLETE LEFT - 09/09/2019 INDICATION: swelling TECHNIQUE: Three views COMPARISON: None FINDINGS: The patient would not position her hand properly. There is significant osteoarthritis of the finger. There is also osteoarthritis at the first carpometacarpal joint. There is diffuse indeterminate soft tissue swelling over the hand. No soft tissue gas or foreign body. IMPRESSION: Indeterminate findings. Electronically signed by Donny Bustos 09/09/2019 6:56 PM
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
[2019-09-09] MEDS: LOVENOX SUBQ SCH (20:15)
[2019-09-09] MEDS: SODIUM CHLORIDE 0.9% INJ SCH (20:15)
[2019-09-09] MEDS: PROTONIX IV SCH (20:15)
--- NOTE | 2019-09-09 20:32 | PULMONOLOGY PROGRESS NOTE ---
DATE: 09/09/2019 INTERIM HISTORY: The patient has had some seizures during the night. She remains poorly responsive. Urine output has improved. OBJECTIVE: Current temperature 100.2 degrees, blood pressure 142/68, heart rate 120, respiratory rate 21, oxygen saturation 98% on 40% FIO2. HEENT: Pupils reveal slight right lateral and downward gaze. Pupils do react. Oropharynx appears clear but dry. Neck is supple. Chest reveals occasional rhonchi bilaterally. Cardiac exam: Increased rate, regular rhythm. Abdomen is obese and soft. Extremities reveal increased edema in the left arm, forearm and hand. Pulses were by Doppler earlier. Surgical consultation has been placed. LABORATORY DATA: Sodium 142, potassium 3.2, chloride 104, bicarbonate 21, BUN 65, creatinine 2.0, glucose 239. Arterial blood gas this morning: PH 7.47, pCO2 of 25, pO2 of 145. White blood count 6.31, hemoglobin 10.7, platelet count 294,000. Blood cultures are negative to date. DIAGNOSTIC DATA: Chest x-ray reveals resolving basilar infiltrates. IMPRESSION: A 64-year-old with: 1. Acute hypoxemic respiratory failure. 2. Diabetic ketoacidosis, with improvement. 3. Hyperglycemia. 4. Rhabdomyolysis. 5. Altered mental status. 6. Acute renal failure. 7. Obesity. 8. Edema and swelling in the left arm, forearm and hand. 9. Multiple areas of skin breakdown/pressure ulceration. PLAN: 1. Agree with surgical evaluation of the left hand. Pulses are present, which is encouraging. 2. Continue full ventilatory support. 3. Discontinue sodium bicarbonate infusion. 4. Continue broad-spectrum antibiotics. 5. Continue DVT prophylaxis. 6. Await Neurology evaluation and input for possible seizures. 7. Prognosis remains guarded. Time spent in critical care management 35 minutes. cc: Antonio Rae MD
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
[2019-09-09] MEDS ORDERED: DEPACON IV ONE (22:21)
[2019-09-09] MEDS: CEREBYX IV SCH (22:25)
[2019-09-10] MEDS: HUMULIN R SUBQ SCH ×4 (01:14→11:38)
[2019-09-10] MEDS: MERREM 500 MG in NS 50 ML IV SCH ×4 (01:15→23:35)
[2019-09-10] MEDS: 1/2 NS 1,000 ML IV SCH ×3 (01:22→18:38)
[2019-09-10] MEDS: VERSED 100 MG in NS 80 ML IV SCH ×2 (01:25→14:42)
[2019-09-10] MEDS: DUONEB (A & A) INH SCH ×7 (03:35→23:28)
[2019-09-10] MEDS: ZYVOX 600 MG/D5W 600 MG/300 ML IVPB IV SCH ×2 (03:36→16:30)
[2019-09-10] MEDS: KEPPRA 500 MG/NS 500 MG/100 ML IVPB IV SCH ×2 (03:36→16:00)
[2019-09-10 04:43] LABS: ALLEN TEST YES; BE -4.8 mmoll (-3.0-3.0); BLOOD TYPE ARTERIAL; HCO3-(ACT) 21.2 mmoll (20.0-26.0); METHB 1.3 % (0.0-1.5); O2(CT) 13.7 mL/dL (15.0-23.0); O2HB 96.3 % (95.0-99.0); PCO2(98.6) 26 mmHg (35-45); PO2(98.6) 113 mmHg (60-100); SAMPLE BLOOD; SAO2 98.4 % (95.0-100.0); SRATE 14 BPM; TVOL 500 mL; pH(98.6) 7.45 (7.35-7.45)
[2019-09-10 04:44] LABS: MODALITY VENTILATOR
[2019-09-10 05:32] LABS: EOS# 0.01 X1000 (0.0-0.7); EOS% 0.2 % (0.0-10.0); HEMATOCRIT 26.6 % (37.0-47.0); HEMOGLOBIN 8.5 g/dL (12.0-16.0); IMM GRAN# 0.02 X1000 (0.0-0.04); IMM GRAN% 0.3 % (0.0-0.5); LYMPH% 16.6 % (20.5-51.1); MCH 26.6 PG (27-31); MCV 83.1 FL (81-99); MONO# 0.58 X1000 (0.11-0.59); MONO% 8.7 % (1.7-9.3); MPV 10.1 FL (7.4-10.4); NEUT# 4.92 X1000 (1.4-6.5); NEUT% 74.2 % (42.2-75.2); PLT 210 X1000 (130-400); RDW 15.5 % (11.5-14.5); WBC 6.63 X1000 (4.8-10.8)
[2019-09-10] MEDS ORDERED: DEPACON 500 MG in NS 50 ML IV SCH (06:00)
[2019-09-10 06:13] LABS: ALB/GLOB RATIO 0.8; ALBUMIN 2.3 g/dL (3.5-5.0); CREATININE 1.7 mg/dL (0.5-0.9); MAGNESIUM 2.2 mg/dL (1.5-2.7); POTASSIUM 3.5 mmol/L (3.5-5.1); TOTAL BILIRUBIN 0.24 mg/dL (0.20-1.00); TOTAL PROTEIN 5.3 g/dL (6.3-8.3)
[2019-09-10 06:14] LABS: CALCIUM 6.2 mg/dL (8.8-10.2)
[2019-09-10 06:24] LABS: PHENYTOIN 10.8 ug/mL (10-20); VALPROIC ACID 35.6 ug/mL (50-100)
[2019-09-10] MEDS ORDERED: CALCIUM GLUCONATE 1 GM in NS 50 ML IV ONE ×3 (06:26→23:46)
--- NOTE | 2019-09-10 07:38 | Diag Imaging Result Doc PS360 ---
CT HEAD W/O CONTRAST - 09/09/2019 INDICATION: encephalopathy COMPARISON: 09/08/2019 FINDINGS: The ventricles and sulci are normal in size and contour. Stable mild periventricular white matter chronic microvascular ischemia. No intracranial mass or hemorrhage. The skull is intact. There is some mild sinusitis. IMPRESSION: Mild sinusitis. No acute intracranial process. This exam was performed using automated exposure control, adjustment of mA or kV according to patient size, and/or use of iterative reconstruction technique Electronically signed by Donny Bustos 09/10/2019 7:36 AM
[2019-09-10] MEDS: PULMICORT INH SCH ×2 (08:19→19:45)
[2019-09-10] MEDS: CEREBYX IV SCH (08:44)
--- NOTE | 2019-09-10 08:50 | ECHO REPORT ---
ORDER DATE: 09/09/2019 MEASUREMENTS: Septal thickness 1.3, left ventricular internal diameter in diastole 3.5, posterior wall thickness 1.2, left ventricular internal diameter in systole 2.2, aortic root 2.8, left atrium 3.3. SUMMARY: 1. Fair quality study. 2. Aortic valve is trileaflet and opens normally on 2-dimensional images. The peak gradient across the aortic valve is approximately 10 mmHg. Mitral, tricuspid, and pulmonic valves are without evidence of structural abnormality with trace tricuspid regurgitation. The aortic root is normal in size. 3. Normal left ventricular chamber size with mild concentric left ventricular hypertrophy demonstrated. The estimated left ventricular ejection fraction appears to be at least 70%. No regional wall motion abnormalities are evident. Left atrium, right atrium, and right ventricle are normal in size with preserved right ventricular systolic function. 4. No pericardial effusion. 5. Appearance of inferior vena cava suggests normal central venous pressure. cc: MD Ambreen Mata CRNP
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
[2019-09-10] MEDS: SANTYL OINT TOP SCH (13:00)
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
--- NOTE | 2019-09-10 13:41 | GENERAL SURGERY PROGRESS NOTE ---
DATE: 09/10/2019 SUBJECTIVE: The patient reportedly is continuing to have seizure-like activity. Also, this has been documented on the EEG. Otherwise, no acute events. OBJECTIVE: Temperature 97 degrees pulse 86, respirations 20, blood pressure 104/52, O2 saturation 100%.General: She is sedated on Versed. HEENT: Her pupils are equal and pinpoint. She remains intubated. CV: Regular rate and rhythm. Extremities: Her left forearm and hand were examined. There is decreased edema, especially in the forearm. The hand feels warmer and actually equal to the right hand today. The radial pulse in the left wrist is now at least 1+. It is definitely palpable. The capillary refill on the left hand is now 2 seconds or less, which is improved from yesterday. The compartments overall feel soft in the forearm and hand. LABORATORY: White blood cell count 6.6, hemoglobin 8.5. PH 7.4, pCO2 26, PaO2 113. IMAGING: A left hand x-ray showed significant osteoarthritis of her finger and also at the 1st carpometacarpal joint. There is diffuse soft tissue swelling. No soft tissue gas or foreign body. No fractures. ASSESSMENT AND PLAN: A 64-year-old female found down and unresponsive, now with residual seizures, respiratory failure, acute kidney injury, and left upper extremity swelling. The noninvasive vascular evaluation of left arm was reviewed by me showing some mild decrease in blood flow to the digits in the left hand compared to the right. However, blood flow was preserved at every level and the pressures in the wrist actually measure equal from right to left. Overall, I believe her hand has clinically improved. I do not think she has critical limb ischemia, nor do I think she has compartment syndrome. We will follow along. No acute surgical intervention planned at this time. cc: Dion Madrigal MD
[2019-09-10] MEDS ORDERED: CEREBYX 300 MG in NS 50 ML IV ONE (14:00)
--- NOTE | 2019-09-10 15:16 | PULMONOLOGY PROGRESS NOTE ---
DATE: 09/10/2019 SUBJECTIVE: The patient remains poorly responsive. She does respond to painful stimuli. She remains on mechanical ventilation. OBJECTIVE: Vital Signs: Maximum temperature in the last 24 hours is 100.2 degrees. Current temperature 97 degrees. HEENT: Pupils are equal. Oropharynx appears dry. Neck is supple. Chest reveals good air entry bilaterally with occasional rhonchi. Cardiac Examination: S1-S2 with regular rate. Abdomen is obese and soft with diminished bowel sounds. Extremities are unchanged. Laboratories: Chest x-ray was not requested today. Arterial blood gas reveals a pH of 7.45, pCO2 of 26, and PO2 of 113. White blood count 6.63, hemoglobin 8.5, platelet count 210,000. Sodium 142, potassium 3.5, chloride 105, bicarbonate 17, BUN 54, creatinine 1.7. IMPRESSION: A 64-year-old with: 1. Diabetic ketoacidosis. 2. Diabetes mellitus with poor control. Hemoglobin A1c on admission was greater than 11. 3. Acute hypoxemic respiratory failure. 4. Rhabdomyolysis. 5. Altered mental status. 6. Acute renal failure. 7. Edema, left greater than right arms. 8. Multiple areas of pressure ulceration/skin breakdown. DISCUSSION: A 64-year-old with problems outlined above. Currently, she does not appear to be having seizure-like activity. Her blood sugars and acidosis along with renal function continue to improve. Hopefully, she will recover neurologically. PLAN: 1. Continue ventilatory support and wean FiO2 as tolerated. 2. Continue fluids per the hospitalist team. 3. Continue broad-spectrum antibiotics. 4. Continue Lovenox adjustment, adjusted for renal function, for DVT prophylaxis. 5. Continue gastric acid suppression. 6. Begin daily weaning attempts with improvement in mental status. Time spent in critical care management, 35 minutes. cc: Antonio Rae MD
[2019-09-10] MEDS ORDERED: D50W SYRINGE IV PRN (16:59)
[2019-09-10] MEDS ORDERED: HUMULIN R IV ONE (16:59)
[2019-09-10] MEDS ORDERED: HUMULIN R 100 UNIT in NS 100 ML IV SCH (17:00)
[2019-09-10 19:00] LABS: CALCIUM 6.1 mg/dL (8.8-10.2); CREATININE 1.3 mg/dL (0.5-0.9); POTASSIUM 3.3 mmol/L (3.5-5.1)
--- NOTE | 2019-09-10 19:31 | VASCULAR LAB ---
PROCEDURE NAME: Arterial Bilateral Arms - 09/09/2019 REFERRING PHYSICIAN: Dion Madrigal MD. READING PHYSICIAN: Dion Madrigal MD. TERRITORY SALES REPRESENTATIVE: Merced Noriega RVT. INDICATION: Decreased pulses in the left wrist with a cold and swollen left hand. FINDINGS: The right brachial pressure could not be measured due to a PICC line. The left brachial pressure was 98. Right ulnar pressure 95, left 93. Right radial artery pressure 95, left 94. The waveforms show pulsatile flow in the left upper arm at both wrists and at both index fingers. The waveform is somewhat depressed at the left wrist compared to the right. The digital waveforms were then performed. On the right side, there was good amplitude at the right thumb, middle and ring finger, with some depressed amplitude at the right index and 5th finger. On the left side, there was pulsatile flow in each digit, but it is blunted in the left middle and 5th fingers in a moderate degree, and more significantly in the left ring finger. INTERPRETATION: There is preserved flow in the left wrist, hand, and digits. However, there does appear to be some decreased flow compared to the right side. Of note, the patient was noted to have a lot of soft tissue edema of the left hand and wrist. cc: MD Jorge Suarez MD
--- NOTE | 2019-09-10 19:49 | Extremity Venous Study ---
PROCEDURE NAME: Venous U/S Left Arm - 09/09/2019 REFERRING PHYSICIAN: PATRICK Castano. READING PHYSICIAN: Dion Madrigal MD. CARD SETTER: Hari. INDICATION: Left arm swelling. FINDINGS: The deep and superficial veins of the left upper extremity were imaged throughout their course. They are compressible, patent and without thrombus. INTERPRETATION: No DVT or SVT of the left upper extremity. cc: Dion Madrigal MD
[2019-09-10] MEDS: LOVENOX SUBQ SCH (20:08)
[2019-09-10] MEDS: PROTONIX IV SCH (20:08)
[2019-09-10] MEDS ORDERED: CEREBYX 300 MG in NS 50 ML IV SCH (20:30)
[2019-09-10] MEDS ORDERED: CEREBYX IV SCH (20:30)
[2019-09-10 23:17] LABS: CREATININE 1.2 mg/dL (0.5-0.9); POTASSIUM 3.3 mmol/L (3.5-5.1)
[2019-09-10] MEDS: D5 1/2 NS 1,000 ML IV SCH (23:35)
[2019-09-11] MEDS ORDERED: VERSED 100 MG in NS 80 ML IV SCH (01:00)
[2019-09-11] MEDS: 1/2 NS 1,000 ML IV SCH ×4 (01:32→20:08)
[2019-09-11 01:53] LABS: CALCIUM 7.3 mg/dL (8.8-10.2); CREATININE 1.1 mg/dL (0.5-0.9); POTASSIUM 3.7 mmol/L (3.5-5.1)
[2019-09-11] MEDS ORDERED: CEREBYX 300 MG in NS 50 ML IV SCH (02:00)
[2019-09-11] MEDS: DUONEB (A & A) INH SCH ×6 (03:25→23:06)
[2019-09-11] MEDS: KEPPRA 500 MG/NS 500 MG/100 ML IVPB IV SCH ×2 (03:35→16:57)
[2019-09-11] MEDS: ZYVOX 600 MG/D5W 600 MG/300 ML IVPB IV SCH ×2 (03:35→16:57)
[2019-09-11 04:25] LABS: ALLEN TEST YES; BE -3.5 mmoll (-3.0-3.0); BLOOD TYPE ARTERIAL; HCO3-(ACT) 22.2 mmoll (20.0-26.0); METHB 0.4 % (0.0-1.5); O2(CT) 9.9 mL/dL (15.0-23.0); O2HB 96.6 % (95.0-99.0); PCO2(98.6) 27 mmHg (35-45); PO2(98.6) 88 mmHg (60-100); SAMPLE BLOOD; SRATE 14 BPM; THB 7.2 g/dL (11.5-17.4); TVOL 500 mL; pH(98.6) 7.47 (7.35-7.45)
[2019-09-11 04:37] LABS: MODALITY VENTILATOR
[2019-09-11 04:43] LABS: EOS# 0.03 X1000 (0.0-0.7); EOS% 0.4 % (0.0-10.0); HEMATOCRIT 26.7 % (37.0-47.0); HEMOGLOBIN 8.5 g/dL (12.0-16.0); LYMPH# 0.75 X1000 (1.2-3.4); LYMPH% 10.8 % (20.5-51.1); MCH 26.6 PG (27-31); MCHC 31.8 g/dL (33-37); MCV 83.4 FL (81-99); MONO# 0.34 X1000 (0.11-0.59); MONO% 4.9 % (1.7-9.3); NEUT# 5.83 X1000 (1.4-6.5); NEUT% 83.9 % (42.2-75.2); PLT 198 X1000 (130-400); RDW 15.8 % (11.5-14.5); WBC 6.95 X1000 (4.8-10.8)
[2019-09-11 05:38] LABS: ALB/GLOB RATIO 0.7; ALBUMIN 2.2 g/dL (3.5-5.0); CALCIUM 7.3 mg/dL (8.8-10.2); CREATININE 1.1 mg/dL (0.5-0.9); MAGNESIUM 2.2 mg/dL (1.5-2.7); TOTAL BILIRUBIN 0.24 mg/dL (0.20-1.00); TOTAL PROTEIN 5.2 g/dL (6.3-8.3)
[2019-09-11 05:53] LABS: POTASSIUM 3.5 mmol/L (3.5-5.1)
--- NOTE | 2019-09-11 07:08 | Diag Imaging Result Doc PS360 ---
EXAM: CHEST-PORTABLE 09/11/2019 HISTORY: respiratory failure TECHNIQUE: AP portable at 0515 COMMENT: There is an endotracheal tube with its tip slightly below the thoracic inlet. There is alveolar opacity in the retrocardiac portion of the left lower lobe. The inspiration is less optimal than on 09/09/2019 but otherwise are has been no significant change. IMPRESSION: Left lower lobe atelectasis versus pneumonia. Electronically signed by Nishant Hernandez 09/11/2019 7:05 AM
[2019-09-11] MEDS ORDERED: CALCIUM GLUCONATE 2 GM in NS 100 ML IV ONE (07:30)
[2019-09-11] MEDS: PULMICORT INH SCH ×2 (08:00→19:25)
[2019-09-11] MEDS: D5 1/2 NS 1,000 ML IV SCH (08:18)
[2019-09-11] MEDS: MERREM 500 MG in NS 50 ML IV SCH (08:18)
[2019-09-11] MEDS ORDERED: LANTUS INSULIN SUBQ ONE (09:20)
[2019-09-11] MEDS: POTASSIUM CHLORIDE 20 MEQ/SWI 20 MEQ/100 ML IVPB IV PRN (09:45)
[2019-09-11] MEDS: SANTYL OINT TOP SCH (10:10)
[2019-09-11] MEDS: HUMULIN R SUBQ SCH ×4 (10:18→23:53)
[2019-09-11 10:45] LABS: CALCIUM 7.7 mg/dL (8.8-10.2); POTASSIUM 3.6 mmol/L (3.5-5.1)
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
--- NOTE | 2019-09-11 12:55 | Diag Imaging Result Doc PS360 ---
EXAM: CHEST/ABD TUBE PLACEMENT 09/11/2019 HISTORY: NG tube placement TECHNIQUE: Portable KUB at 1243 COMMENT: The NG tube tip is in the distal stomach or duodenum. IMPRESSION: NG tube in the stomach. Electronically signed by Nishant Hernandez 09/11/2019 12:52 PM
[2019-09-11 12:58] LABS: CALCIUM 7.8 mg/dL (8.8-10.2); POTASSIUM 3.8 mmol/L (3.5-5.1)
[2019-09-11] MEDS ORDERED: CEREBYX IV SCH ×3 (14:00)
[2019-09-11] MEDS: CEREBYX IV SCH (14:30)
[2019-09-11] MEDS: NS IV SCH (14:30)
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
[2019-09-11] MEDS: MAXIPIME 1 GM in NS 50 ML IV SCH (16:55)
[2019-09-11] MEDS ORDERED: LASIX IV ONE (18:57)
[2019-09-11] MEDS: LOVENOX SUBQ SCH (20:08)
[2019-09-11] MEDS: PROTONIX IV SCH (20:08)
--- NOTE | 2019-09-11 21:51 | PULMONOLOGY PROGRESS NOTE ---
DATE: 09/11/2019 INTERIM HISTORY: The patient remains on Versed. She is undergoing continuous EEG monitoring. Her Versed drip is being titrated off. OBJECTIVE: Vital Signs: BP 119/81, heart rate 98, respiratory rate 15, oxygen saturation 96%. HEENT: Pupils are equal. Oropharynx appears clear but dry. Neck: Supple. Chest: Reveals occasional rhonchi bilaterally. Cardiac exam: S1, S2. Abdomen: Soft. Extremities: Without edema. Neurologic: The patient does not follow commands. She does withdraw to pain. LABORATORIES: Arterial blood gas reveals a pH of 7.47, pCO2 of 27, pO2 of 88. White blood count 6.95, hemoglobin 8.5, platelet count 198,000. Sodium 142, potassium 3.8, chloride 111, bicarbonate 19, anion gap 12, BUN 28, creatinine 1.0, glucose 148. Chest x-ray reveals atelectasis left lower lobe. IMPRESSION: A 64-year-old with: 1. Diabetic ketoacidosis. 2. Acute hypoxemic respiratory failure. 3. Rhabdomyolysis. 4. Seizures. 5. Delirium. 6. Multiple areas of pressure ulceration/skin breakdown. 7. Poorly controlled diabetes mellitus. 8. Resolving acute renal failure. DISCUSSION: A 64-year-old with multiple problems outlined above. Physiologically, she continues to improve. Mental status remains poor, but she has been on a Versed drip for seizures. Her Versed drip is being titrated off. She will be transitioned to propofol if needed for comfort. PLAN: 1. Continue ventilatory support today while Versed is being titrated off. 2. Continue fluids per hospitalist team. 3. Continue broad-spectrum antibiotics. 4. Continue Lovenox and gastric acid suppression. 5. Ventilator weaning trial tomorrow. Hopefully, mental status will allow weaning and extubation. Time spent in critical care management: 30+ minutes cc: Antonio Rae MD [facility]
[2019-09-12] MEDS: DUONEB (A & A) INH SCH ×6 (03:34→23:11)
[2019-09-12] MEDS: MAXIPIME 1 GM in NS 50 ML IV SCH ×3 (03:43→17:01)
[2019-09-12] MEDS: NS IV SCH ×2 (03:43→15:14)
[2019-09-12] MEDS: CEREBYX IV SCH ×2 (03:43→15:14)
[2019-09-12] MEDS: ZYVOX 600 MG/D5W 600 MG/300 ML IVPB IV SCH ×2 (03:44→17:01)
[2019-09-12] MEDS: KEPPRA 500 MG/NS 500 MG/100 ML IVPB IV SCH ×2 (03:44→15:14)
[2019-09-12] MEDS: HUMULIN R SUBQ SCH ×6 (03:44→23:46)
[2019-09-12 04:21] LABS: ALLEN TEST YES; BE -1.3 mmoll (-3.0-3.0); BLOOD TYPE ARTERIAL; HCO3-(ACT) 23.9 mmoll (20.0-26.0); METHB 0.8 % (0.0-1.5); O2HB 95.3 % (95.0-99.0); PCO2(98.6) 27 mmHg (35-45); PO2(98.6) 77 mmHg (60-100); SAMPLE BLOOD; SAO2 97.6 % (95.0-100.0); SRATE 10 BPM; THB 9.6 g/dL (11.5-17.4); TVOL 500 mL
[2019-09-12 04:22] LABS: MODALITY VENTILATOR
[2019-09-12 06:25] LABS: BASO# 0.01 X1000 (0.0-0.2); BASO% 0.2 % (0.0-0.8); EOS# 0.04 X1000 (0.0-0.7); EOS% 0.9 % (0.0-10.0); HEMATOCRIT 28.6 % (37.0-47.0); LYMPH# 0.56 X1000 (1.2-3.4); LYMPH% 13.2 % (20.5-51.1); MCH 26.5 PG (27-31); MCHC 31.5 g/dL (33-37); MCV 84.4 FL (81-99); MONO# 0.51 X1000 (0.11-0.59); MONO% 12.1 % (1.7-9.3); MPV 10.4 FL (7.4-10.4); NEUT# 3.11 X1000 (1.4-6.5); NEUT% 73.6 % (42.2-75.2); PLT 207 X1000 (130-400); RBC 3.39 XMIL (4.2-5.4); RDW 16.2 % (11.5-14.5); WBC 4.23 X1000 (4.8-10.8)
[2019-09-12 06:41] LABS: AGAP 12; ALB/GLOB RATIO 0.6; ALBUMIN 2.1 g/dL (3.5-5.0); ALKALINE PHOSPHATASE 86 U/L (32-104); BUN 23 mg/dL (8-22); CALCIUM 7.4 mg/dL (8.8-10.2); CHLORIDE 111 mmol/L (98-107); CK TOTAL 1343 U/L (24-173); COSMO 298; CREATININE 0.9 mg/dL (0.5-0.9); ESTIMATED GFR > 60; GLUCOSE 272 mg/dL (70-104); GOT 35 U/L (10-30); GPT 29 U/L (10-36); MAGNESIUM 2.1 mg/dL (1.5-2.7); POTASSIUM 3.5 mmol/L (3.5-5.1); SODIUM 143 mmol/L (136-145); TCO2 20 mmol/L (25-35); TOTAL BILIRUBIN 0.18 mg/dL (0.20-1.00); TOTAL PROTEIN 5.4 g/dL (6.3-8.3)
--- NOTE | 2019-09-12 07:26 | Diag Imaging Result Doc PS360 ---
EXAM: CHEST-PORTABLE INDICATION: respiratory failure TECHNIQUE: One view COMPARISON: 09/11/2019 FINDINGS: The ET tube and right PICC line are in stable positions. The NG tube appears to be stable. Similar to the previous study, the inspiration is suboptimal. Mild retrocardiac opacity at the left lung base is approximately stable. No new consolidation is identified. Cardiac silhouette is stable. IMPRESSION: Stable chest. Electronically signed by Rocco Villarreal 09/12/2019 7:24 AM
[2019-09-12] MEDS: PULMICORT INH SCH ×2 (07:50→19:46)
[2019-09-12] MEDS: SANTYL OINT TOP SCH (08:04)
[2019-09-12] MEDS: 1/2 NS 1,000 ML IV SCH ×3 (08:10→23:46)
--- NOTE | 2019-09-12 11:55 | PROGRESS NOTE ---
DATE: 09/12/2019 SUBJECTIVE: Ms. Garrett is a 64-year-old female who presented via EMS after being found unresponsive at home. She has been unresponsive and intubated since arrival. Son and brother are at the bedside at the time of this encounter. Overall, she seems to be doing better than yesterday. She is moving her limbs sporadically since we have taken her off the midazolam. OBJECTIVE: Vital Signs: Blood pressure is 114/44, MAP 65, heart rate 98, temperature 99.7 degrees, respirations 37, and 100% oxygen saturation on the ventilator. Input and output positive balance 88 mL with 4100 mL Duff catheter urine void. General: On physical exam, she is an intubated patient on a ventilator. HEENT: ET tube and NG tube. NG tube is in the left naris. Pupils are equal, 3 mm, and reactive to light. Heart: Regular rate and rhythm. Lungs: Coarse breath sounds, possibly from ventilator. Abdomen: Large, nondistended, bowel sounds present. Extremities: Radial pulses 2+ bilaterally. There is decreased swelling visible, wrinkling on the left hand. On the right hand, there is bullae with clear fluid that is still present. There is red vertical striae on her fingers that are darkening, but have not gotten any worse. There is no pedal edema. She has SCD pumps. Central Nervous System: She has been weaned off the midazolam and moves her limbs sporadically, but she is unresponsive to commands. Patellar reflex 2+ on the right, 1+ on the left. Corneal reflex is present, more apparent on the left side. Gag reflex is responsive with nurse suctioning at the bedside. LABORATORY DATA: CBC, white blood cell count 4.23, hemoglobin 9, hematocrit 28.6, platelets 207,000. Chemistry, sodium 143, potassium 3.5, chloride 111, bicarbonate 20, BUN 23, creatinine 0.9, glucose 272, calcium 7.4. Creatine kinase 1343. Blood gases, pH 7.5, PaCO2 of 27, PaO2 of 77, bicarbonate 23.9, oxygen saturation 97.6 on mechanical ventilator, base excess -1.3. Lactate 1.6. Chest x-ray is stable since yesterday. The ET tube and NG tube and PICC line are all in proper positioning. ASSESSMENT AND PLAN: A 64-year-old female found unresponsive, hypothermic, rhabdomyolysis that has since resolved, status post diabetic ketoacidosis with associated kidney injury that is resolving. Neurologic: Seizure disorder, no seizure activity since yesterday. EEG has been removed today. Pt is on dilantin and keppra; neurology is following, may need further imaging if not improved Cardiology, heart functioning well. Diastolic blood pressure is low, but the MAP is stable. We will continue to monitor. Respiration, she is currently intubated, mostly for airway protection; FiO2 of 30, respirations 10, PEEP of 5, tidal volume 500. We will try weaning trial at some point today. Dermatological, we will continue antifungal powder for her yeast infection. Gastrointestinal, nasogastric tube for nutrition. Dietary is on board. FEN and kidney function is improving. we will initiate some albumin and lasix due to third spacing. Dictated by Steffany Torres, Medical Student for Jorge Garcia MD This chart was documented by, Steffany Torres, Medical Student and accurately reflects the services performed, treatment plan and medical decisions as attested by the providers signature Jorge Garcia MD. cc: Jorge Garcia MD [facility]
[2019-09-12] MEDS ORDERED: ALBUMIN 25% IV ONE (12:12)
[2019-09-12] MEDS ORDERED: TUMS PO PRN (12:20)
[2019-09-12] MEDS ORDERED: CALCIUM GLUCONATE 2 GM in D5W 100 ML IV PRN (12:21)
[2019-09-12] MEDS: LASIX IV SCH ×2 (12:38→23:51)
[2019-09-12] MEDS: TUMS PO PRN (12:38)
--- NOTE | 2019-09-12 14:14 | NEUROLOGY PROGRESS NOTE ---
DATE: 09/12/2019 SUBJECTIVE: Ms. Pizarro has had fairly stable 24 hours. She has not had clinically recognized seizure. She was tapered off of midazolam. She continues intubated and mechanically ventilated. She has had some episodes of coughing, and staff has noticed occasional posturing with limbs partially extended and arms turning inward during those times. Family at the bedside report she seemed to follow with gaze from one side of the bed to the other to look at family after they passively elevated her eyelid. She has not communicated beyond that. Brain imaging includes CT scan done without contrast 09/08/2019 and 09/09/2019. These showed chronic microvascular ischemic changes, but nothing acute and specifically no evidence of focal left hemisphere lesion to account for the apparent left hemisphere seizures recorded earlier. She continues with pinpoint pupils, and I do not see any definite abnormality in the eduar. EEG shows generalized slowing. Burst suppression has resolved. There is occasional epileptiform discharge, but no repetitive discharges or electrographic seizure recorded. On exam, she is intubated. There is some lateral eye movement with head turning. Pupils remain very small with uncertain reactivity to bright light. Corneal reflex is brisk on the right and inconsistent on the left. Plantar response is silent bilaterally. She moved each limb in response to minimal noxious stimulation. She moved all limbs spontaneously at times. She seemed to move her left leg a little bit more often than the right. Limb tone is symmetric. Neck is supple. IMPRESSION: 1. Persistent global encephalopathy. This is likely multifactorial and there could be postictal, sedative effect, metabolic encephalopathy contributing. I do not see definite focal features. 2. Persistent pinpoint pupils. Family is not certain they have noticed that in the past, but also not certain this is not chronic. Pinpoint pupils may be evidence of pontine lesion. We might consider brain MRI when practical. 3. She had electrographic status epilepticus earlier this admission. The etiology is not certain. Family gives history consistent with possible prior partial seizures. She presented with extreme hyperglycemia, eventually had significant hypocalcemia, and there were a few other more minor metabolic problems. Seizure was controlled eventually with midazolam drip. She continues levetiracetam and phenytoin. RECOMMENDATIONS: I do not have any urgent suggestions. Would continue current seizure medicine doses and follow clinically. If she has clinically apparent seizure, we can increase one or both of her current medicines or consider adding a 3rd medicine for seizure control. If seizure persists, she may need midazolam drip resumed. Unfortunately, we will not have EEG or Neurology availability over the weekend. I discussed that with family. If she deteriorates substantially, there may need to be other arrangements for care. Thanks for asking Neurology to see Ms. Pizarro. cc: MD CARL Amaro III
[2019-09-12 14:19] LABS: ALLEN TEST YES; BE -0.1 mmoll (-3.0-3.0); BLOOD TYPE ARTERIAL; HCO3-(ACT) 24.9 mmoll (20.0-26.0); METHB 0.6 % (0.0-1.5); O2(CT) 12.1 mL/dL (15.0-23.0); O2HB 96.5 % (95.0-99.0); PCO2(98.6) 31 mmHg (35-45); PO2(98.6) 86 mmHg (60-100); SAMPLE BLOOD; SAO2 98.4 % (95.0-100.0); THB 8.8 g/dL (11.5-17.4); pH(98.6) 7.48 (7.35-7.45)
[2019-09-12 14:20] LABS: MODALITY VENTILATOR
--- NOTE | 2019-09-12 18:22 | PULMONOLOGY PROGRESS NOTE ---
DATE: 09/12/2019 The patient is lying comfortably in the bed. Versed drip has been discontinued. She does move her head side to side spontaneously. She does withdraw to pain. She does not open her eyes to her name called nor does she follow commands. OBJECTIVE: Vital Signs: Blood pressure is 122/51 with a heart rate of 90, respirations are 20 to 22, temperature is 98.6 degrees with O2 saturations ranging from 95 to 98 percent on 30% FiO2 with respirations per ventilator, tidal volume is 500, FiO2 30% the rate of 10, PEEP of 5. HEENT: Pupils are equal, round-i do not appreciate any reaction to bright light Head is normocephalic, atraumatic. Mucous membranes are dry. Neck: Supple, trachea midline. Cardiovascular: Regular rate and rhythm. S1 and S2 appreciated. She has no lower extremity edema with peripheral pulses palpable x4 extremities. Pulmonary: She has rhonchi scattered throughout. Chest rises and falls symmetric with respiration. Gastrointestinal: Abdomen is soft, nondistended with bowel sounds in all 4 quadrants. : Duff is patent to bedside bag. LABS: WBC is 4.2 with hemoglobin 9, hematocrit 28.6 and platelets of 207,000. Sodium 143, potassium 3.5, BUN 23, creatinine 0.9 with a glucose of 272. CPK is 1343. Chest x-ray reveals a stable chest with a stable left lower lobe opacity. No new consolidation. IMPRESSION: This is a 64-year-old female with 1. Acute hypoxemic respiratory failure. 2. Rhabdomyolysis. improving 3. Seizures. 4. Multiple areas of pressure ulceration and skin breakdown. 5. Poorly controlled diabetes mellitus. 6. Resolving acute renal failure. PLAN: 1. continue ventilatory support. 2. Continue broad-spectrum antibiotics. 3. Fluids per hospitalist team. 4. Continue Lovenox and gastric acid suppression. 5. Weaning trial pending. 6. Blood sugar management per primary team Dictated by PATRICK Vera for Antonio Rae MD cc: PATRICK Vera MD [facility]
[2019-09-12] MEDS: PROTONIX IV SCH (20:10)
[2019-09-12] MEDS: LOVENOX SUBQ SCH (20:11)
[2019-09-12] MEDS: SODIUM CHLORIDE 0.9% INJ SCH (20:11)
[2019-09-12] MEDS: ATIVAN IV PRN (23:22)
[2019-09-13] MEDS: CEREBYX IV SCH ×2 (02:26→14:29)
[2019-09-13] MEDS: NS IV SCH ×2 (02:26→14:29)
[2019-09-13] MEDS: TYLENOL PO PRN (02:32)
[2019-09-13] MEDS: KEPPRA 500 MG/NS 500 MG/100 ML IVPB IV SCH ×2 (03:31→17:07)
[2019-09-13] MEDS: ATIVAN IV PRN (03:45)
[2019-09-13] MEDS: DUONEB (A & A) INH SCH ×6 (03:53→22:56)
[2019-09-13] MEDS: HUMULIN R SUBQ SCH ×6 (04:18→23:35)
[2019-09-13] MEDS: ZYVOX 600 MG/D5W 600 MG/300 ML IVPB IV SCH ×2 (04:30→17:07)
[2019-09-13] MEDS: MAXIPIME 1 GM in NS 50 ML IV SCH ×2 (04:31→17:07)
[2019-09-13 05:07] LABS: ALLEN TEST YES; BE 3.3 mmoll (-3.0-3.0); BLOOD TYPE ARTERIAL; HCO3-(ACT) 27.5 mmoll (20.0-26.0); METHB 0.6 % (0.0-1.5); O2(CT) 12.2 mL/dL (15.0-23.0); O2HB 95.4 % (95.0-99.0); PCO2(98.6) 33 mmHg (35-45); PO2(98.6) 79 mmHg (60-100); SAMPLE BLOOD; SAO2 96.9 % (95.0-100.0); SRATE 10 BPM; TVOL 500 mL; pH(98.6) 7.51 (7.35-7.45)
[2019-09-13 05:08] LABS: MODALITY VENTILATOR
[2019-09-13 05:32] LABS: BASO# 0.01 X1000 (0.0-0.2); BASO% 0.2 % (0.0-0.8); EOS# 0.15 X1000 (0.0-0.7); EOS% 2.8 % (0.0-10.0); HEMATOCRIT 28.4 % (37.0-47.0); HEMOGLOBIN 8.7 g/dL (12.0-16.0); LYMPH# 1.11 X1000 (1.2-3.4); LYMPH% 20.4 % (20.5-51.1); MCHC 30.6 g/dL (33-37); MONO# 0.98 X1000 (0.11-0.59); MPV 10.2 FL (7.4-10.4); NEUT# 3.18 X1000 (1.4-6.5); NEUT% 58.6 % (42.2-75.2); PLT 230 X1000 (130-400); RBC 3.34 XMIL (4.2-5.4); RDW 15.9 % (11.5-14.5); WBC 5.43 X1000 (4.8-10.8)
--- NOTE | 2019-09-13 05:47 | Diag Imaging Result Doc PS360 ---
EXAM: CHEST-PORTABLE HISTORY: respiratory failure TECHNIQUE: Single COMPARISON: 09/12/2019 FINDINGS: No change in the endotracheal tube, nasogastric tube, right PICC line. There are bilateral infiltrates. No cardiomegaly. No pleural effusions identified. IMPRESSION: No interval improvement. The infiltrates may be slightly more prominent. Electronically signed by Daniel Montgomery 09/13/2019 5:45 AM
[2019-09-13 05:58] LABS: AGAP 14; ALB/GLOB RATIO 0.8; ALBUMIN 2.6 g/dL (3.5-5.0); ALKALINE PHOSPHATASE 84 U/L (32-104); BUN 18 mg/dL (8-22); CALCIUM 7.8 mg/dL (8.8-10.2); CHLORIDE 104 mmol/L (98-107); CK TOTAL 895 U/L (24-173); COSMO 297; CREATININE 0.9 mg/dL (0.5-0.9); ESTIMATED GFR > 60; GLUCOSE 278 mg/dL (70-104); GOT 32 U/L (10-30); GPT 30 U/L (10-36); MAGNESIUM 1.8 mg/dL (1.5-2.7); POTASSIUM 3.4 mmol/L (3.5-5.1); SODIUM 143 mmol/L (136-145); TCO2 25 mmol/L (25-35); TOTAL BILIRUBIN 0.21 mg/dL (0.20-1.00)
[2019-09-13] MEDS: PULMICORT INH SCH ×2 (08:27→19:51)
[2019-09-13] MEDS: SANTYL OINT TOP SCH (08:55)
[2019-09-13] MEDS: 1/2 NS 1,000 ML IV SCH ×2 (08:58→22:18)
[2019-09-13 10:10] LABS: BLOOD TYPE ARTERIAL; SAMPLE BLOOD
[2019-09-13 10:11] LABS: ALLEN TEST YES; BE 4.6 mmoll (-3.0-3.0); HCO3-(ACT) 28.5 mmoll (20.0-26.0); METHB 0.9 % (0.0-1.5); O2(CT) 10.6 mL/dL (15.0-23.0); O2HB 92.6 % (95.0-99.0); PCO2(98.6) 36 mmHg (35-45); PO2(98.6) 58 mmHg (60-100); SAO2 94.3 % (95.0-100.0); THB 8.1 g/dL (11.5-17.4)
[2019-09-13 10:15] LABS: MODALITY VENTILATOR
[2019-09-13] MEDS: LASIX IV SCH (12:13)
--- NOTE | 2019-09-13 14:03 | PROGRESS NOTE ---
DATE: 09/13/2019 SUBJECTIVE: The patient is not responsive or at least not purposely. OBJECTIVE: Vital signs: Blood pressure 129/58, respiratory rate of 34, heart rate 86, temperature 99.3 degrees, 92 to 91 percent. She had a temperature overnight of 100 degrees. Cardiovascular: Regular rate and rhythm. Pulmonary: Bilateral breath sounds clear to auscultation. Gastrointestinal: Soft, nontender, nondistended. Bowel sounds are positive. LABORATORY DATA: White count is 5, hemoglobin and hematocrit are 8 and 28, platelets of 230,000. Her blood gas has gotten worse, pH 7.5, pCO2 36, PaO2 58, that is on 30%. Potassium is 3.4, glucose is 278 with several below 100 but not completely there. PROBLEM LIST: 1. Acute respiratory failure due to hypoxia and hypoxic respiratory failure. Not clear etiology besides just gross encephalopathy. She is on the ventilator in the process of getting a ventilator weaning trial, but she is tachypneic in the 30s and her saturations are in the low 90s, so I do not think she will pass today, plus her mental status is not improved. 2. Encephalopathy with a seizure disorder. Seizures are apparently controlled on her current dose of phenytoin and Keppra. Neurology is following, although not here this weekend, but she has not had any further episodes. 3. Several abrasions related to her initial injury. She is getting wound care for this. 4. Acute kidney injury related possibly to rhabdomyolysis. We will continue treatment. She is on IV fluids. She is a bit overloaded so I have also added some Lasix just to keep her at least negative. She is starting to diurese a bit. 5. Type 2 diabetes. She is still not controlled but she is not on any long-term insulin. She is just on sliding scale. 6. Pneumonia, possibly aspiration type. She is on Zyvox and cefepime. Her days of antibiotics, today Zyvox will be 6 and cefepime will be a day 2. DISPOSITION: Prognosis is still guarded. I had a long conversation with family, which was son and brother and [id number] about prognosis. They were asking how long she could be maintained this way and discussed treatment options. At this point, we do not know if she is going to be in a persistent vegetative state or if she is going to improve slowly but incrementally. She does not clearly have anoxic injury. Her seizures are controlled, but her mental status really has not improved very much and she has not received any sedation, maybe 1 dose overnight. We are trying to avoid all sedatives. I do not think her mental status is good enough to extubate, but we will continue to follow. cc: Jorge Garcia MD
[2019-09-13] MEDS: LANTUS INSULIN SUBQ SCH (14:29)
--- NOTE | 2019-09-13 18:23 | PULMONOLOGY PROGRESS NOTE ---
DATE: 09/13/2019 SUBJECTIVE: The patient is not responsive. She continues intubated. OBJECTIVE: Vital Signs: Blood pressure is 125/55 with a heart rate of 85, respirations 22, temperature 99.5 with O2 saturation 96% to 99% on PRVC, rate of 10, 30% FiO2, tidal volume of 500 and PEEP of 5. EYES: equal, round, I do not appreciate any reaction to bright light. HEENT: Head is normocephalic, atraumatic. Mucous membranes are dry. Neck: Supple. Trachea midline. Cardiovascular: Regular rate and rhythm. S1 and S2 are appreciated. No murmur. No lower extremity edema. Pulmonary: Rhonchi scattered throughout. Chest rises and falls symmetrically with respiration. Gastrointestinal: Abdomen is soft, nondistended, with bowel sounds in all 4 quadrants. : Duff is patent to bedside bag. Neurologic: She moves her head [id number] spontaneously. She withdraws to pain, posturing with limbs partially extended and arms turning inward. LABS: WBCs 5.4 with hemoglobin 8.7, hematocrit 28.4, and platelets of 230. Sodium 143, potassium 3.4, BUN 18, creatinine 0.9 with a glucose of 278. CPK is 895. IMPRESSION: This is a 64-year-old female with: 1. Acute hypoxemic respiratory failure. 2. Rhabdomyolysis.improving 3. Seizures. 4. Poorly controlled diabetes mellitus. 5. Persistent global encephalopathy. 6. Electrographic status epilepticus. PLAN: 1. Continue ventilatory support. 2. Continue broad-spectrum antibiotics. 3. Continue Lovenox and gastric acid suppression. 4. Continue antiseizure medication. 5. blood sugar management per primary team. Dictated by PATRICK Vera for Antonio Rae MD cc: PATRICK Vera MD [facility]
[2019-09-13] MEDS: PROTONIX IV SCH (20:10)
[2019-09-13] MEDS: SODIUM CHLORIDE 0.9% INJ SCH (20:11)
[2019-09-13] MEDS: LOVENOX SUBQ SCH (21:00)
[2019-09-14] MEDS: LASIX IV SCH ×2 (01:22→12:14)
[2019-09-14] MEDS: CEREBYX IV SCH ×2 (02:21→13:57)
[2019-09-14] MEDS: NS IV SCH ×2 (02:21→13:57)
[2019-09-14] MEDS: DUONEB (A & A) INH SCH ×6 (03:12→23:04)
[2019-09-14] MEDS: ZYVOX 600 MG/D5W 600 MG/300 ML IVPB IV SCH ×2 (03:28→16:55)
[2019-09-14] MEDS: KEPPRA 500 MG/NS 500 MG/100 ML IVPB IV SCH ×2 (03:58→16:55)
[2019-09-14 04:02] LABS: BASO# 0.02 X1000 (0.0-0.2); BASO% 0.3 % (0.0-0.8); EOS# 0.27 X1000 (0.0-0.7); EOS% 3.4 % (0.0-10.0); HEMATOCRIT 28.6 % (37.0-47.0); HEMOGLOBIN 8.7 g/dL (12.0-16.0); IMM GRAN# 0.04 X1000 (0.0-0.04); IMM GRAN% 0.5 % (0.0-0.5); LYMPH# 1.01 X1000 (1.2-3.4); LYMPH% 12.7 % (20.5-51.1); MCH 25.7 PG (27-31); MCHC 30.4 g/dL (33-37); MCV 84.6 FL (81-99); MONO# 1.31 X1000 (0.11-0.59); MONO% 16.5 % (1.7-9.3); MPV 9.8 FL (7.4-10.4); NEUT# 5.28 X1000 (1.4-6.5); NEUT% 66.6 % (42.2-75.2); PLT 208 X1000 (130-400); RBC 3.38 XMIL (4.2-5.4); RDW 15.6 % (11.5-14.5); WBC 7.93 X1000 (4.8-10.8)
[2019-09-14] MEDS: HUMULIN R SUBQ SCH ×6 (04:26→23:37)
[2019-09-14 04:29] LABS: AGAP 12; ALB/GLOB RATIO 0.8; ALBUMIN 2.5 g/dL (3.5-5.0); ALKALINE PHOSPHATASE 84 U/L (32-104); BUN 16 mg/dL (8-22); CALCIUM 7.2 mg/dL (8.8-10.2); CHLORIDE 99 mmol/L (98-107); CK TOTAL 679 U/L (24-173); COSMO 291; CREATININE 0.8 mg/dL (0.5-0.9); ESTIMATED GFR > 60; GLUCOSE 344 mg/dL (70-104); GOT 28 U/L (10-30); GPT 28 U/L (10-36); MAGNESIUM 1.6 mg/dL (1.5-2.7); POTASSIUM 3.1 mmol/L (3.5-5.1); SODIUM 138 mmol/L (136-145); TCO2 27 mmol/L (25-35); TOTAL BILIRUBIN 0.16 mg/dL (0.20-1.00); TOTAL PROTEIN 5.8 g/dL (6.3-8.3)
[2019-09-14 04:48] LABS: ALLEN TEST YES; BE 5.5 mmoll (-3.0-3.0); BLOOD TYPE ARTERIAL; HCO3-(ACT) 29.2 mmoll (20.0-26.0); METHB 0.5 % (0.0-1.5); O2HB 95.8 % (95.0-99.0); PCO2(98.6) 35 mmHg (35-45); PO2(98.6) 80 mmHg (60-100); SAMPLE BLOOD; SAO2 97.5 % (95.0-100.0); SRATE 10 BPM; THB 8.8 g/dL (11.5-17.4); TVOL 500 mL; pH(98.6) 7.52 (7.35-7.45)
[2019-09-14 04:49] LABS: MODALITY VENTILATOR
[2019-09-14] MEDS: MAXIPIME 1 GM in NS 50 ML IV SCH ×2 (05:43→16:55)
--- NOTE | 2019-09-14 07:56 | Diag Imaging Result Doc PS360 ---
EXAM: CHEST-PORTABLE - 09/14/2019 HISTORY: respiratory failure TECHNIQUE: Portable chest COMPARISON: 09/13/2019 FINDINGS: Endotracheal tube, nasogastric tube, and PICC remain in place. Heart size appears upper normal stable. Infiltrate on the right appears to have decreased mildly. Straightening of the left appears stable. There is no substantial pleural effusion or pneumothorax identified. IMPRESSION: Mild decrease in infiltrate on the right. Stable infiltrate on the left. Electronically signed by Fareed Luciano 09/14/2019 7:54 AM
[2019-09-14] MEDS: PULMICORT INH SCH ×2 (08:24→19:52)
[2019-09-14] MEDS: HALDOL IV PRN (08:47)
[2019-09-14] MEDS: LANTUS INSULIN SUBQ SCH (08:48)
[2019-09-14] MEDS: SANTYL OINT TOP SCH (08:53)
[2019-09-14] MEDS: 1/2 NS 1,000 ML IV SCH (12:17)
[2019-09-14] MEDS ORDERED: KLOR-CON PO ONE (12:56)
[2019-09-14 14:19] LABS: HEPATITIS PROFILE ACUTE SEE COMMENTS
--- NOTE | 2019-09-14 14:19 | PULMONOLOGY PROGRESS NOTE ---
DATE: 09/14/2019 SUBJECTIVE: The patient is intubated. She opens her eyes at random. She does move upper extremities at random. She does not follow commands. OBJECTIVE: Vital Signs: Blood pressure is 155/67, heart rate of 83, respirations are 18, temperature is 99 degrees, with O2 saturations ranging 92% to 94% on 40% FiO2 per ventilator. Eyes: Pupils are equal, round. I did not appreciate any reaction to bright light. She does have lateral eye movement with head turning. Pupils remain pinpoint. HENT: Head is normocephalic, atraumatic. Mucous membranes are moist. Neck: Supple. Trachea midline. Cardiovascular: Regular rate and rhythm. S1 and S2 appreciated. No murmur. No lower extremity edema. Pulmonary: Rhonchi are scattered throughout. Chest rises and falls symmetric with respiration. Gastrointestinal: Abdomen is soft, nondistended, with bowel sounds in all 4 quadrants. : Duff is patent to bedside bag. Neurologic: She is noted to move her head [id number] spontaneously. She moves all 4 extremities spontaneously. She does withdraw to pain, posturing with limbs partially extended and arms turning inward. IMAGING AND LABORATORY DATA: WBC is 7.9, with hemoglobin 8.7, hematocrit 28.6, and platelets of 208,000. Sodium 138, potassium 3.1, BUN 16, creatinine 0.8, with blood sugars ranging 228 to 330. CPK is 679. ABGs: PH is 7.52, with a pCO2 of 35, PO2 of 80, and bicarbonate of 29.2, with ventilator settings, tidal volume of 500, FiO2 of 30%, rate of 10, and 5 of PEEP. Chest x-ray: Mild decrease in infiltrate on the right. Stable left infiltrate. No substantial pleural effusion or pneumothorax identified. IMPRESSION: This is a 64-year-old female with: 1. Diabetic ketoacidosis, resolved. 2. Acute hypoxemic respiratory failure. 3. Rhabdomyolysis, improving. 4. Seizures. 5. Poorly-controlled diabetes mellitus. 6. Persistent global encephalopathy. PLAN: 1. Continue ventilatory support. 2. Continue broad-spectrum antibiotics. 3. Continue antiseizure medication. 4. Continue Lovenox and gastric acid suppression. Dictated by PATRICK Vera for Antonio Rae MD cc: PATRICK Vera MD
--- NOTE | 2019-09-14 14:51 | PROGRESS NOTE ---
DATE: 09/14/2019 SUBJECTIVE: The patient has no major complaints, well she is responsive so normal. Blood pressure is 88/62, heart rate 89, respiratory 14, temperature was 99.3 degrees.Cardiovascular: Regular rate and rhythm. Pulmonary: Bilateral breath sounds clear to auscultation. GI soft, nontender, nondistended. Bowel sounds are positive. LABS: White count 7, hemoglobin and hematocrit 8 and 28, platelets 208,000, pH 7.52, pCO2 of 35, PaO2 80. Potassium is 3.1, sugar 344, calcium is 7.2, CPKs down to 679. Her hepatitis panel is negative. PROBLEM LIST: 1. Encephalopathy with associated seizure disorder with prolonged hyperglycemia possibly in a sense functional hypoglycemia, seizures are controlled now with fosphenytoin and Keppra. Neurology will resume monitoring tomorrow, possible repeat EEG. She really does need MRI but we have not been able to extubate her safely although her mental status is improving. Concern over possible anoxic or stroke possibly at this point. 2. Acute respiratory failure due to hypoxia, hypoxic respiratory failure. She is doing better but not been able to extubate her mostly because of neurological. She gets tachypneic, tachycardic. Yesterday she desaturated, will attempt again tomorrow. 3. Acute kidney injury that is resolving. She is on some fluids because of rhabdo. 4. Type 2 diabetes is still not very well controlled. I have increased her Lantus. Will continue to increase her Lantus and we will see how she does. She is getting tube feeds. 5. Disposition pending her clinical status. 6. Pneumonia. She is on Zyvox day 7 and cefepime day 3. Disposition pending her clinical status. As long as she is continuing to improve not quite sure at this point what to say prognostically and it is still possible she could improve to the point of being more functional but there is a concern she may plateau and be in a persistent vegetative state. We will get a palliative care consult. cc: Jorge Garcia MD [facility]
[2019-09-14] MEDS: PROTONIX IV SCH (20:08)
[2019-09-14] MEDS: SODIUM CHLORIDE 0.9% INJ SCH (20:08)
[2019-09-14] MEDS: LOVENOX SUBQ SCH (20:09)
[2019-09-15] MEDS: LASIX IV SCH ×2 (00:12→12:34)
[2019-09-15] MEDS: 1/2 NS 1,000 ML IV SCH ×2 (00:50→14:00)
[2019-09-15] MEDS: CEREBYX IV SCH ×2 (01:35→14:00)
[2019-09-15] MEDS: NS IV SCH ×2 (01:35→14:00)
[2019-09-15] MEDS: DUONEB (A & A) INH SCH ×6 (03:22→23:16)
[2019-09-15] MEDS: KEPPRA 500 MG/NS 500 MG/100 ML IVPB IV SCH ×2 (03:39→15:44)
[2019-09-15] MEDS: HUMULIN R SUBQ SCH ×5 (04:08→20:45)
[2019-09-15] MEDS: ZYVOX 600 MG/D5W 600 MG/300 ML IVPB IV SCH ×2 (04:15→15:59)
[2019-09-15] MEDS: MAXIPIME 1 GM in NS 50 ML IV SCH ×2 (04:31→18:10)
[2019-09-15 04:41] LABS: BASO# 0.02 X1000 (0.0-0.2); BASO% 0.3 % (0.0-0.8); EOS# 0.26 X1000 (0.0-0.7); EOS% 3.8 % (0.0-10.0); HEMATOCRIT 27.8 % (37.0-47.0); HEMOGLOBIN 8.6 g/dL (12.0-16.0); IMM GRAN# 0.08 X1000 (0.0-0.04); IMM GRAN% 1.2 % (0.0-0.5); LYMPH# 1.32 X1000 (1.2-3.4); LYMPH% 19.1 % (20.5-51.1); MCH 26.3 PG (27-31); MCHC 30.9 g/dL (33-37); MONO# 1.26 X1000 (0.11-0.59); MONO% 18.2 % (1.7-9.3); NEUT# 3.98 X1000 (1.4-6.5); NEUT% 57.4 % (42.2-75.2); PLT 270 X1000 (130-400); RBC 3.27 XMIL (4.2-5.4); RDW 15.6 % (11.5-14.5); WBC 6.92 X1000 (4.8-10.8)
[2019-09-15 04:44] LABS: ALLEN TEST YES; BE 9.3 mmoll (-3.0-3.0); BLOOD TYPE ARTERIAL; HCO3-(ACT) 32.1 mmoll (20.0-26.0); PCO2(98.6) 38 mmHg (35-45); PO2(98.6) 61 mmHg (60-100); SAMPLE BLOOD; SRATE 10 BPM; TVOL 500 mL; pH(98.6) 7.54 (7.35-7.45)
[2019-09-15 04:45] LABS: MODALITY VENTILATOR
[2019-09-15 04:47] LABS: AGAP 13; ALB/GLOB RATIO 0.7; ALBUMIN 2.4 g/dL (3.5-5.0); ALKALINE PHOSPHATASE 83 U/L (32-104); BUN 13 mg/dL (8-22); CALCIUM 7.7 mg/dL (8.8-10.2); CHLORIDE 97 mmol/L (98-107); CK TOTAL 527 U/L (24-173); COSMO 287; CREATININE 0.8 mg/dL (0.5-0.9); ESTIMATED GFR > 60; GLUCOSE 260 mg/dL (70-104); GOT 23 U/L (10-30); GPT 23 U/L (10-36); MAGNESIUM 1.7 mg/dL (1.5-2.7); POTASSIUM 3.1 mmol/L (3.5-5.1); SODIUM 139 mmol/L (136-145); TCO2 29 mmol/L (25-35); TOTAL BILIRUBIN 0.15 mg/dL (0.20-1.00)
--- NOTE | 2019-09-15 07:28 | Diag Imaging Result Doc PS360 ---
EXAM: CHEST-PORTABLE INDICATION: respiratory failure TECHNIQUE: One view COMPARISON: 09/14/2019 FINDINGS: Support tubes and lines are in stable positions. The mild basilar infiltrates are approximately stable. Somewhat prominent central vasculature is unchanged. No new consolidations identified. Cardiac silhouette is stable. IMPRESSION: Stable chest. Electronically signed by Rocco Villarreal 09/15/2019 7:26 AM
[2019-09-15] MEDS: PULMICORT INH SCH ×2 (08:00→20:02)
[2019-09-15] MEDS: SANTYL OINT TOP SCH (08:40)
[2019-09-15] MEDS ORDERED: LANTUS INSULIN SUBQ SCH (09:00)
--- NOTE | 2019-09-15 11:58 | NEUROLOGY PROGRESS NOTE ---
DATE: 09/15/2019 SUBJECTIVE: Ms. Pizarro did not have clinically recognized seizure over the weekend. She has continued intubated and mechanically ventilated. Her blood sugars and calcium continue improved, and I do not see anything on the metabolic profile today that would likely be contributing to her encephalopathy. She has fosphenytoin 400 mg q.12 hours. I will check the phenytoin level today. Last phenytoin level was 17.1 on 09/11/2019. Levetiracetam continues 500 mg q.12 hours with creatinine improved to 0.8. I do not think levetiracetam level would exchange trouble shooter today. She had Haldol 2 mg 1 dose 24hours ago. She has not received lorazepam in more than 48 hours. I do not see anything else on the medication list that would likely contribute to encephalopathy. OBJECTIVE: On exam, she is intubated. With moderate stimulation, she appeared to be awake, focused her gaze on me, seemed to attempt to follow some commands. She did squeeze my hand to command, but then was inconsistent in repeating that. She turned her eyes toward me. She closed her eyes to command, but then was inconsistent in repeating that. Pupils are a little bit bigger than before but still small. She has good lateral eye movement. She did not move her right arm. She used her left arm purposefully. Neck is supple. We will repeat her EEG to make sure there is not further seizure activity. Further plans will depend on the EEG report, phenytoin level, and her clinical course. I discussed frankly with brother and [id number] concern for persistent neurologic dysfunction following protracted seizure. Eventually, MRI will be helpful, but is not urgent. IMPRESSION: Seizure appears to be controlled. I am not sure why she continues poorly responsive and will check phenytoin level. The apparent right hemiparesis is consistent with the predominantly left hemisphere seizure activity documented earlier. This also raises the possibility that she has a dominant hemisphere syndrome with dysphasia contributing to her inability to consistently follow commands now. Thanks for asking Neurology to see Ms. Pizarro. cc: MD CARL Amaro III
--- NOTE | 2019-09-15 13:05 | PROGRESS NOTE ---
DATE: 09/15/2019 SUBJECTIVE: The patient has no major complaints. OBJECTIVE: Vital Signs: Blood pressure is 137/61, heart rate of 85, respiratory rate 23, temperature was 99 degrees. Cardiovascular: Regular rate and rhythm. Pulmonary: Bilateral breath sounds clear to auscultation. GI: Soft, nontender, nondistended. Bowel sounds were positive. LABORATORY DATA: White count is 6, hemoglobin and hematocrit 8 and 27, platelets 270,000. Creatinine is 0.8, potassium is 3.1, glucose 170s to 250s, calcium 7.7. PROBLEM LIST: 1. Acute encephalopathy, but that seems to be better. At this point, I am suspicious she has had a left-sided stroke. She does not move her right arm or her right leg. She had focal seizures. MRI would be ideal, but I do not know when she is going to be extubated. Her mental status is much improved. She follows commands. She seems a bit agitated but she does follow commands which she was not doing anything before. 2. Acute on chronic respiratory failure. We will continue to treat. Working on extubation, that will be per Pulmonary. At this point, she is protecting her airway. I think, she has got dysphagia. 3. Acute kidney injury and rhabdomyolysis. She seems to be doing better from that standpoint. 4. Type 2 diabetes. She is usually on 50 units of insulin. Right now, we are giving her 20. I may bump that up to 30 and we will see how she is doing there. 5. Disposition. Clinically, I think I am going to feel like things are going much better. 6. Seizure disorder. She seems to be seizure-free currently on the fosphenytoin and Dilantin. Appreciate Neurology input. cc: Jorge Garcia MD
[2019-09-15] MEDS: MYCOSTATIN POWDER TOP SCH ×2 (13:59→21:07)
[2019-09-15] MEDS: ASPIRIN PO SCH (13:59)
[2019-09-15 15:12] LABS: ALLEN TEST YES; BE 11.5 mmoll (-3.0-3.0); BLOOD TYPE ARTERIAL; HCO3-(ACT) 33.8 mmoll (20.0-26.0); METHB 0.4 % (0.0-1.5); O2(CT) 12.3 mL/dL (15.0-23.0); O2HB 91.7 % (95.0-99.0); PCO2(98.6) 41 mmHg (35-45); PO2(98.6) 52 mmHg (60-100); SAMPLE BLOOD; THB 9.5 g/dL (11.5-17.4)
[2019-09-15 15:16] LABS: pH(98.6) 7.54 (7.35-7.45)
[2019-09-15 15:17] LABS: MODALITY VENTILATOR
--- NOTE | 2019-09-15 19:23 | Diag Imaging Result Doc PS360 ---
EXAM: CT HEAD W/O CONTRAST HISTORY: encephalopathy TECHNIQUE: CT head without contrast COMPARISON: 09/09/2019 FINDINGS: No parenchymal hemorrhage. No epidural or subdural hematoma. No subarachnoid hemorrhage. 3 there are chronic microvascular ischemic changes. No mass identified on this noncontrasted exam. No hydrocephalus. Sphenoid sinus mucosal thickening. IMPRESSION: 1.No hemorrhage 2.Chronic microvascular ischemic changes This exam was performed using automated exposure control, adjustment of mA or kV according to patient size, and/or use of iterative reconstruction technique. Electronically signed by Daniel Montgomery 09/15/2019 7:21 PM
[2019-09-15] MEDS ORDERED: INSULIN GLARGINE HUM REC ANLOG 50 UNIT SQ SCH (21:00)
[2019-09-15] MEDS: LOVENOX SUBQ SCH (21:03)
[2019-09-15] MEDS: EFFEXOR PO SCH (21:03)
[2019-09-15] MEDS: LIPITOR PO SCH (21:03)
[2019-09-15] MEDS: PROTONIX IV SCH (21:03)
--- NOTE | 2019-09-15 22:17 | PULMONOLOGY PROGRESS NOTE ---
DATE: 09/15/2019 SUBJECTIVE: The patient was evaluated twice. The first time this morning she was poorly responsive. Later this afternoon, she was responsive and awake and moving her left side. The patient was placed on a spontaneous breathing trial, which she passed later in the day and was subsequently extubated. She is now in the CT department undergoing followup CT scan. OBJECTIVE: Vital Signs: Maximum temperature last 24 hours is 99.9 degrees, blood pressure 137/60, heart rate 86, respiratory rate 27, oxygen saturation 94%. HEENT: Pupils are equal. Oropharynx appears clear. Neck: Is supple. Chest: Reveals shallow breath sounds bilaterally without wheezing or rhonchi. Cardiac: S1, S2. Abdomen: Soft. Extremities: Are without edema. LABORATORIES: Chest x-ray reveals mild prominence of the vasculature but otherwise no change. Arterial blood gas pH 7.54, pCO2 of 38, PO2 of 61. Sodium 139, potassium 3.1, chloride 97, bicarb 29, BUN 13, creatinine 0.8, glucose 260 . IMPRESSION: 1. 64-year-old with acute hypoxemic respiratory failure status post extubation. 2. Rhabdomyolysis with resolution. 3. Encephalopathy with improvement. 4. Seizures. 5. Hemiplegia. PLAN: 1. Extubation (this has been completed). 2. Continue to observe for seizures. 3. Continue to follow blood sugars. 4. Continue antibiotics. TIME SPENT: In critical care management 40 minutes. cc: Antonio Rae MD
[2019-09-16] MEDS: HUMULIN R SUBQ SCH ×7 (00:51→23:27)
[2019-09-16] MEDS: LASIX IV SCH ×3 (00:52→23:28)
[2019-09-16] MEDS: ZYVOX 600 MG/D5W 600 MG/300 ML IVPB IV SCH ×2 (03:18→15:49)
[2019-09-16] MEDS: MAXIPIME 1 GM in NS 50 ML IV SCH ×3 (03:18→15:48)
[2019-09-16] MEDS: NS IV SCH ×2 (03:18→14:23)
[2019-09-16] MEDS: 1/2 NS 1,000 ML IV SCH ×2 (03:18→15:48)
[2019-09-16] MEDS: CEREBYX IV SCH ×2 (03:18→14:23)
[2019-09-16] MEDS: DUONEB (A & A) INH SCH ×6 (03:44→22:37)
[2019-09-16 04:41] LABS: ALLEN TEST YES; BE 11.7 mmoll (-3.0-3.0); BLOOD TYPE ARTERIAL; HCO3-(ACT) 34.1 mmoll (20.0-26.0); METHB 0.9 % (0.0-1.5); O2(CT) 13.2 mL/dL (15.0-23.0); PCO2(98.6) 45 mmHg (35-45); PO2(98.6) 132 mmHg (60-100); SAMPLE BLOOD; SAO2 98.6 % (95.0-100.0); THB 9.5 g/dL (11.5-17.4); pH(98.6) 7.51 (7.35-7.45)
[2019-09-16 04:44] LABS: MODALITY BI PAP
[2019-09-16] MEDS: KEPPRA 500 MG/NS 500 MG/100 ML IVPB IV SCH ×2 (04:50→14:56)
[2019-09-16 06:27] LABS: BASO# 0.02 X1000 (0.0-0.2); BASO% 0.2 % (0.0-0.8); EOS# 0.27 X1000 (0.0-0.7); EOS% 3.3 % (0.0-10.0); HEMATOCRIT 29.3 % (37.0-47.0); HEMOGLOBIN 8.8 g/dL (12.0-16.0); IMM GRAN% 1.2 % (0.0-0.5); LYMPH# 1.09 X1000 (1.2-3.4); LYMPH% 13.3 % (20.5-51.1); MCV 86.4 FL (81-99); MONO# 1.54 X1000 (0.11-0.59); MONO% 18.8 % (1.7-9.3); MPV 10.1 FL (7.4-10.4); NEUT# 5.19 X1000 (1.4-6.5); NEUT% 63.2 % (42.2-75.2); PLT 305 X1000 (130-400); RBC 3.39 XMIL (4.2-5.4); RDW 15.7 % (11.5-14.5); WBC 8.21 X1000 (4.8-10.8)
--- NOTE | 2019-09-16 06:32 | Diag Imaging Result Doc PS360 ---
EXAM: CHEST-PORTABLE HISTORY: respiratory failure TECHNIQUE: Single view COMPARISON: 09/15/2019 FINDINGS: Poor inspiratory effort. No cardiomegaly. There is basilar atelectasis and there may be underlying infiltrates. No change in the nasogastric tube or right-sided PICC line. The endotracheal tube has been removed. IMPRESSION: Mild interval worsening Electronically signed by Daniel Montgomery 09/16/2019 6:30 AM
[2019-09-16 07:29] LABS: AGAP 14; BUN 13 mg/dL (8-22); CALCIUM 7.6 mg/dL (8.8-10.2); CHLORIDE 95 mmol/L (98-107); COSMO 287; CREATININE 0.8 mg/dL (0.5-0.9); ESTIMATED GFR > 60; GLUCOSE 261 mg/dL (70-104); POTASSIUM 2.9 mmol/L (3.5-5.1); SODIUM 139 mmol/L (136-145); TCO2 30 mmol/L (25-35)
[2019-09-16] MEDS: PULMICORT INH SCH ×2 (08:20→20:29)
[2019-09-16] MEDS: SYNTHROID PO SCH (08:51)
[2019-09-16] MEDS: ASPIRIN PO SCH (08:51)
[2019-09-16] MEDS: MYCOSTATIN POWDER TOP SCH ×2 (08:51→20:07)
[2019-09-16] MEDS: EFFEXOR PO SCH ×2 (08:52→20:04)
[2019-09-16] MEDS: SANTYL OINT TOP SCH (08:52)
[2019-09-16] MEDS: LIPITOR PO SCH ×2 (08:52→20:04)
[2019-09-16] MEDS: LANTUS INSULIN SUBQ SCH (08:53)
--- NOTE | 2019-09-16 13:57 | PROGRESS NOTE ---
DATE: 09/16/2019 SUBJECTIVE: Patient has no major complaints. OBJECTIVE: Vital signs: Blood pressure 119/58, heart rate of 87, respiratory rate 22, temperature 98.7 degrees, 96% on BiPAP. She is on 50%. Cardiovascular: Tachy. Pulmonary: Bilateral breath sounds clear to auscultation. Gastrointestinal: Soft, nontender, nondistended. Bowel sounds were positive. Neurologic: She moves her left hand spontaneously and with purpose and follows commands, but she is a little bit more lethargic than she was yesterday. Her right side she does not move at all. LABORATORY DATA: White count 8, hemoglobin and hematocrit 8 and 29, platelets 305,000. pH 7.51, pCO2 45, PaO2 132. Potassium is 2.9, sugar of 261. PROBLEM LIST: 1. Acute encephalopathy, but at this point, I think she has had most likely an ischemic event, I think a left-sided stroke. Once we can get her off BiPAP, we will push for MRI. We will continue to follow. Neurology is following. Appreciate their input. 2. Seizure disorder is controlled currently on Dilantin and Keppra. 3. Acute on chronic respiratory failure. Extubated without difficulty, but then had some desaturations overnight which have responded of BiPAP, but continue to monitor. 4. Acute kidney injury with rhabdomyolysis. That is also improved. 5. Hypokalemia. We will supplement and follow. 6. Disposition. Awaiting improvement in her overall stability. We will continue diuresis and work on pulmonary toilet. She is also on Zyvox and cefepime. cc: Jorge Garcia MD
--- NOTE | 2019-09-16 15:02 | NEUROLOGY PROGRESS NOTE ---
DATE: 09/16/2019 LOCATION: ICU #[id number]. SUBJECTIVE: Ms. Pizarro has not had clinically recognized seizure. EEG yesterday showed no evidence of seizure. There continues to be generalized slowing, but the asymmetry between left and right is less prominent than on prior EEG. Family at the bedside reports she was much more alert after extubation yesterday. They report some spontaneous speech, requesting something to drink, and apparently identifying family members correctly. Today, she has been more somnolent. Family has not noticed definite spontaneous voluntary right limb movement. She has been moving her left arm purposefully and sometimes vigorously. On my exam, she has brisk lateral eye movement with complete horizontal eye movement noted with passive head turning. Pupils are a little bit larger than a few days ago, and left pupil definitely reacts slightly to bright light. Facial motility is symmetric. She used her left arm purposefully. Right arm continues flaccid. Neck is supple. IMPRESSION: 1. Presenting with seizures, status epilepticus. This appears to be well controlled. Etiology for seizure has not been established. 2. Right hemiparesis. 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 Seizures were predominantly in left hemisphere earlier. There may be a component of dysphasia. MRI will be helpful when practical, but it is not urgent and would not change her management today. 3. I would continue fosphenytoin and levetiracetam at current doses. We may need further electroencephalogram later, but I do not think that would help today. Thank you for asking Neurology to see Ms. Pizarro. cc: MD CARL Amaro III
[2019-09-16] MEDS: PROTONIX IV SCH (20:04)
[2019-09-16] MEDS: LOVENOX SUBQ SCH (20:09)
[2019-09-17] MEDS: NS IV SCH ×2 (01:59→15:17)
[2019-09-17] MEDS: CEREBYX IV SCH ×2 (01:59→15:17)
[2019-09-17] MEDS: DUONEB (A & A) INH SCH ×6 (03:16→22:51)
--- NOTE | 2019-09-17 03:52 | PULMONOLOGY PROGRESS NOTE ---
DATE: 09/16/2019 SUBJECTIVE: The patient is less awake than yesterday. She is currently on BiPAP. She does not spontaneously move her right upper extremity. OBJECTIVE: Vital Signs: The patient has been afebrile for the last 24 hours. Blood pressure 123/54, heart rate 87, respiratory rate 22, oxygen saturation 96%. HEENT: Pupils are equal. Oropharynx appears clear. Neck: Supple. Chest: Reveals shallow breath sounds bilaterally with occasional rhonchi. Cardiac: S1-S2. Abdomen: Obese and soft. Extremities: Reveal 1+ peripheral edema. LABORATORIES: Arterial blood gas reveals a pH 7.51, pCO2 of 45, PO2 of 132. Sodium 139 A 66-year-old with 1. Acute hypoxic respiratory failure. 2. Acute renal failure with resolution. 3. Rhabdomyolysis with resolution. 4. Fluctuating encephalopathy with hemiparesis. PLAN: 1. Continue to cycle BiPAP at bedtime and p.r.n. 2. Continue neurologic followup. Hopefully, MRI can be performed if she can be liberated from the BiPAP. 3. Continue to follow blood sugars. 4. Continue antibiotics. cc: Antonio Rae MD
[2019-09-17] MEDS: KEPPRA 500 MG/NS 500 MG/100 ML IVPB IV SCH ×2 (04:24→15:41)
[2019-09-17] MEDS: 1/2 NS 1,000 ML IV SCH (04:28)
[2019-09-17] MEDS: MAXIPIME 1 GM in NS 50 ML IV SCH ×2 (04:28→16:19)
[2019-09-17] MEDS: ZYVOX 600 MG/D5W 600 MG/300 ML IVPB IV SCH ×2 (04:28→16:19)
[2019-09-17 04:55] LABS: ALLEN TEST YES; BE 15.1 mmoll (-3.0-3.0); BLOOD TYPE ARTERIAL; HCO3-(ACT) 36.7 mmoll (20.0-26.0); METHB 0.5 % (0.0-1.5); O2(CT) 11.3 mL/dL (15.0-23.0); O2HB 96.9 % (95.0-99.0); PCO2(98.6) 47 mmHg (35-45); PO2(98.6) 97 mmHg (60-100); SAMPLE BLOOD; SAO2 98.4 % (95.0-100.0); THB 8.2 g/dL (11.5-17.4); pH(98.6) 7.53 (7.35-7.45)
[2019-09-17 04:56] LABS: MODALITY BI PAP
[2019-09-17] MEDS: HUMULIN R SUBQ SCH ×6 (05:02→23:51)
[2019-09-17 06:54] LABS: AGAP 14; BUN 14 mg/dL (8-22); CALCIUM 7.8 mg/dL (8.8-10.2); CHLORIDE 92 mmol/L (98-107); COSMO 287; CREATININE 0.7 mg/dL (0.5-0.9); ESTIMATED GFR > 60; GLUCOSE 286 mg/dL (70-104); SODIUM 138 mmol/L (136-145); TCO2 32 mmol/L (25-35)
[2019-09-17 07:09] LABS: BASO# 0.04 X1000 (0.0-0.2); BASO% 0.4 % (0.0-0.8); EOS# 0.37 X1000 (0.0-0.7); EOS% 3.9 % (0.0-10.0); HEMATOCRIT 28.2 % (37.0-47.0); HEMOGLOBIN 8.7 g/dL (12.0-16.0); IMM GRAN# 0.25 X1000 (0.0-0.04); IMM GRAN% 2.6 % (0.0-0.5); LYMPH# 1.48 X1000 (1.2-3.4); LYMPH% 15.4 % (20.5-51.1); MCH 27.2 PG (27-31); MCHC 30.9 g/dL (33-37); MCV 88.1 FL (81-99); MONO# 1.28 X1000 (0.11-0.59); MONO% 13.3 % (1.7-9.3); MPV 10.9 FL (7.4-10.4); NEUT# 6.19 X1000 (1.4-6.5); NEUT% 64.4 % (42.2-75.2); PLT 213 X1000 (130-400); RDW 15.6 % (11.5-14.5); WBC 9.61 X1000 (4.8-10.8)
--- NOTE | 2019-09-17 07:16 | Diag Imaging Result Doc PS360 ---
EXAM: CHEST-PORTABLE 09/17/2019 HISTORY: respiratory failure TECHNIQUE: AP portable at 0527 COMMENT: There is an NG tube passing into the stomach. There our bilateral pleural effusions. There is diffuse interstitial and some alveolar pulmonary edema. The heart size is not enlarged. Compared to 09/16/2019 there has been no appreciable change. IMPRESSION: Pulmonary edema. Electronically signed by Nishant Hernandez 09/17/2019 7:13 AM
[2019-09-17] MEDS: HALDOL IV PRN (07:18)
[2019-09-17] MEDS: PULMICORT INH SCH ×2 (08:10→20:16)
[2019-09-17] MEDS: SYNTHROID PO SCH (08:21)
[2019-09-17] MEDS: ASPIRIN PO SCH (08:21)
[2019-09-17] MEDS: EFFEXOR PO SCH ×2 (08:21→21:38)
[2019-09-17] MEDS: LIPITOR PO SCH ×2 (08:21→21:41)
[2019-09-17] MEDS: LANTUS INSULIN SUBQ SCH (08:22)
[2019-09-17] MEDS: SANTYL OINT TOP SCH (08:24)
[2019-09-17] MEDS: MYCOSTATIN POWDER TOP SCH ×2 (08:24→22:41)
--- NOTE | 2019-09-17 12:21 | NEUROLOGY PROGRESS NOTE ---
DATE: 09/17/2019 SUBJECTIVE: No seizures. OBJECTIVE: Ms. Pizarro is much more alert today than when I saw her yesterday. She opened and closed her eyes inconsistently to command. She squeezed my fingers with her left hand to command. She did not hold up appropriate fingers to indicate ability to follow commands requiring digit distinction. She nodded appropriately. She did not speak to me. She voluntarily shrugged her right arm at the shoulder and very slightly moved her right arm at the elbow to my command. She counted fingers in the left visual field and was very inconsistent with finger counting in her right visual field. Neck continues supple. IMPRESSION: 1. Presentation with seizures, status epilepticus documented with electroencephalogram, multiple seizure medicines required and seizure control established. She has not had clinically apparent seizure or electroencephalogram documentation of seizure in several days. 2. Persistent right hemiparesis and concern for dysphasia. She is alert today and I believe we can determine there is also at least a relative right hemianopia. 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 CT x3 has been negative, last done 09/15/2019. As discussed before, MRI will be helpful when practical and is not urgent. I would continue current seizure medication doses and follow. Thanks for asking neurology to see Ms. Pizarro. cc: MD CARL Amaro III
[2019-09-17] MEDS ORDERED: KLOR-CON PO ONE (12:36)
[2019-09-17] MEDS: LASIX IV SCH ×2 (12:45→23:50)
[2019-09-17] MEDS: POTASSIUM CHLORIDE 20 MEQ/SWI 20 MEQ/100 ML IVPB IV SCH ×2 (13:54→16:13)
[2019-09-17] MEDS ORDERED: POTASSIUM CHLORIDE 20% LIQUID PO ONE (14:15)
[2019-09-17] MEDS ORDERED: LASIX IV ONE (17:52)
--- NOTE | 2019-09-17 17:56 | PROGRESS NOTE ---
DATE: 09/17/2019 SUBJECTIVE: The patient has no major complaints. OBJECTIVE: Blood pressure is 124/89, heart rate 89, respiratory rate 20, temperature 97.3 degrees, Cardiovascular: Regular rate and rhythm. Pulmonary: Bilateral breath sounds, clear to auscultation. GI: Soft, nontender, nondistended. Bowel sounds are positive. She is still pretty unresponsive, but she had gotten Haldol. LABORATORY DATA: White count 9, hemoglobin and hematocrit 8 and 28, platelets 213,000. PH 7.53, pCO2 is 47, pO2 is 97. Potassium is 3, sugar is 286. ASSESSMENT AND PLAN: 1. Encephalopathy, unclear. It seems like she has had a left-sided cerebral event. She is not stable enough, from a pulmonary status, to get an MRI. Neurology is following. 2. Seizure disorder with status epilepticus, controlled on Dilantin and Keppra. 3. [id number] respiratory failure. She is still kind of borderline here. I do not know why she is so hypoxic. There was question of pneumonia. She has no white count, no fever, but we cannot get her off the bilevel positive airway pressure. I am going to pursue a CT angiogram just to see and make sure we have ruled out pulmonary embolism, because I really do not know at this point what is causing her persistent hypoxia. That was not an issue, in fact, when she was on the ventilator. We will continue to follow. She does have bilateral infiltrates. 4. Acute kidney injury with rhabdomyolysis. That is also improved. Her CK is down into the 500s. I guess we will get one tomorrow, maybe consider stopping her fluids. 5. Diabetes is still not completely controlled. We will follow blood sugars and adjust accordingly, because her sugars have steadily increased. She is not on any long-acting insulin that I am aware of, so we will work on that. 6. Putative pneumonia. She is on Lantus. We are going to increase that to 40. 7. Disposition pending her clinical status. Waiting for mental status to improve, and then MRI, then physical therapy and occupational therapy, things of that nature. cc: Jorge Garcia MD [facility]
[2019-09-17] MEDS: PROTONIX IV SCH (21:38)
[2019-09-17] MEDS: LOVENOX SUBQ SCH (21:38)
--- NOTE | 2019-09-17 22:26 | PULMONOLOGY PROGRESS NOTE ---
DATE: 09/17/2019 SUBJECTIVE: The patient is arousable. She squeeze with her left hand and nod appropriately, but she does drift off back to sleep. She remains on BiPAP. OBJECTIVE: The patient has been afebrile for the last 24 hours. Blood pressure 146/64, heart rate 78, respiratory rate 20, oxygen saturation 93% on 50% BiPAP. HEENT: Pupils are equal and reactive. Oropharynx appears clear. Neck: Supple. Chest: Distant breath sounds with decreased breath sounds in both lung bases. Cardiac: S1, S2. Abdomen: Obese and soft. Extremities: Peripheral edema more prominent in the injured right hand than in the left. LABORATORY AND DIAGNOSTIC DATA: White blood count 9.6, hemoglobin 8.7, platelet count 213,000. Sodium 138, potassium 3.0, chloride 92, bicarbonate 32, BUN 14, creatinine 0.7, glucose 280. Arterial blood gas reveals a pH of 7.53, pCO2 of 47, PO2 of 97 on 60% FiO2. Chest x-ray reveals pulmonary edema with bilateral effusions. IMPRESSION: A 64-year-old with: 1. Acute hypoxemic respiratory failure. 2. Seizures. 3. Rhabdomyolysis and renal failure, which have resolved. 4. Fluctuating encephalopathy with right upper extremity weakness. She may also has some visual field changes. PLAN: 1. Continue BiPAP through the night. 2. Additional diuresis as tolerated. 3. Continue patterned blood sugars. 4. Continue antibiotics. 5. We will attempt to try patient off BiPAP tomorrow as tolerated. cc: Antonio Rae MD
[2019-09-18] MEDS: DUONEB (A & A) INH SCH ×6 (03:11→23:09)
[2019-09-18] MEDS: CEREBYX IV SCH ×2 (03:35→15:00)
[2019-09-18] MEDS: NS IV SCH ×2 (03:35→15:00)
[2019-09-18] MEDS: KEPPRA 500 MG/NS 500 MG/100 ML IVPB IV SCH ×2 (03:35→15:36)
[2019-09-18] MEDS: ZYVOX 600 MG/D5W 600 MG/300 ML IVPB IV SCH ×2 (03:48→15:36)
[2019-09-18] MEDS: MAXIPIME 1 GM in NS 50 ML IV SCH (03:48)
[2019-09-18] MEDS: HUMULIN R SUBQ SCH ×5 (04:32→19:36)
[2019-09-18 05:04] LABS: ALLEN TEST YES; BE 18.2 mmoll (-3.0-3.0); BLOOD TYPE ARTERIAL; HCO3-(ACT) 39.1 mmoll (20.0-26.0); METHB 0.8 % (0.0-1.5); O2(CT) 13.2 mL/dL (15.0-23.0); O2HB 96.6 % (95.0-99.0); PO2(98.6) 104 mmHg (60-100); SAMPLE BLOOD; SAO2 98.1 % (95.0-100.0); SRATE 12 BPM; THB 9.6 g/dL (11.5-17.4); pH(98.6) 7.52 (7.35-7.45)
[2019-09-18 05:07] LABS: MODALITY BI PAP; PCO2(98.6) 53 mmHg (35-45)
--- NOTE | 2019-09-18 07:16 | Diag Imaging Result Doc PS360 ---
EXAM: CHEST-PORTABLE 09/18/2019 HISTORY: respiratory failure TECHNIQUE: AP portable at 0525 COMMENT: There is an NG tube which passes below the diaphragm. There is diffuse interstitial opacity and denser alveolar opacification of the right lower lobe. There may be pleural fluid particularly on the right. Compared to 09/17/2019 the left lung appears somewhat clearer but the right lung is slightly more opacified. IMPRESSION: Pulmonary edema and/or pneumonia. Right pleural effusion. Electronically signed by Nishant Hernandez 09/18/2019 7:14 AM
[2019-09-18 07:29] LABS: AGAP 11; BUN 18 mg/dL (8-22); CHLORIDE 94 mmol/L (98-107); COSMO 290; CREATININE 0.3 mg/dL (0.5-0.9); ESTIMATED GFR > 60; GLUCOSE 286 mg/dL (70-104); POTASSIUM 4.1 mmol/L (3.5-5.1); SODIUM 139 mmol/L (136-145); TCO2 34 mmol/L (25-35)
[2019-09-18 07:35] LABS: MAGNESIUM 2.3 mg/dL (1.5-2.7)
[2019-09-18] MEDS: LIPITOR PO SCH ×2 (08:00→20:26)
[2019-09-18] MEDS: SYNTHROID PO SCH (08:00)
[2019-09-18] MEDS: SANTYL OINT TOP SCH (08:00)
[2019-09-18] MEDS: ASPIRIN PO SCH (08:00)
[2019-09-18 08:01] LABS: BASO# 0.04 X1000 (0.0-0.2); BASO% 0.4 % (0.0-0.8); EOS# 0.15 X1000 (0.0-0.7); EOS% 1.3 % (0.0-10.0); HEMATOCRIT 34.6 % (37.0-47.0); HEMOGLOBIN 10.3 g/dL (12.0-16.0); IMM GRAN# 0.12 X1000 (0.0-0.04); IMM GRAN% 1.1 % (0.0-0.5); LYMPH# 1.73 X1000 (1.2-3.4); LYMPH% 15.5 % (20.5-51.1); MCH 26.3 PG (27-31); MCHC 29.8 g/dL (33-37); MCV 88.5 FL (81-99); MONO# 1.79 X1000 (0.11-0.59); MPV 9.4 FL (7.4-10.4); NEUT# 7.36 X1000 (1.4-6.5); NEUT% 65.7 % (42.2-75.2); PLT 360 X1000 (130-400); RBC 3.91 XMIL (4.2-5.4); RDW 15.4 % (11.5-14.5); WBC 11.19 X1000 (4.8-10.8)
[2019-09-18] MEDS: EFFEXOR PO SCH ×2 (08:01→20:26)
[2019-09-18] MEDS: LANTUS INSULIN SUBQ SCH (08:01)
[2019-09-18] MEDS: MYCOSTATIN POWDER TOP SCH ×2 (08:01→21:12)
[2019-09-18] MEDS: PULMICORT INH SCH ×2 (08:09→20:00)
--- NOTE | 2019-09-18 08:31 | Diag Imaging Result Doc PS360 ---
EXAM: CT ANGIOGRM PULMONARY ARTERIES INDICATION: chest pain TECHNIQUE: This exam was performed using automated exposure control, adjustment of mA or kV according to patient size, and/or use of iterative reconstruction technique. Thin section axial images and 3-D MIPS were obtained. COMPARISON: Unenhanced CT chest dated 09/08/2019 FINDINGS: There is no evidence of pulmonary embolism. There is no evidence of aortic dissection or aneurysm. There is no cardiomegaly. There are dense airspace consolidations at the dependent portion of both lower lobes and, to a lesser degree, the inferior left upper lobe consistent with pneumonia. However, there is also a component of atelectasis. These consolidations have worsened since the previous study. There is a stable 1 cm noncalcified nodule in the right perihilar region. There is trace pleural fluid on the left. Limited views of the upper abdomen are essentially stable. IMPRESSION: 1.Dense dependent consolidations, mainly involving the lower lobes bilaterally indicating pneumonia likely with a component of atelectasis as well. This has worsened since the previous study. 2.No evidence of pulmonary embolism. 3.Stable 1 cm perihilar pulmonary nodule on the right. Electronically signed by Rocco Villarreal 09/18/2019 8:28 AM
[2019-09-18] MEDS: LASIX IV SCH (11:32)
[2019-09-18] MEDS ORDERED: VANCOMYCIN IV PER PHARMACY MISC SCH (16:00)
--- NOTE | 2019-09-18 16:04 | NEUROLOGY PROGRESS NOTE ---
DATE: 09/18/2019 SUBJECTIVE: Ms. Pizarro has not had recognized seizure. OBJECTIVE: She is awake, alert, attentive. Her voice is weak, but she was able answer some questions. She used her left arm purposefully and demonstrated good power there. She moved her right arm minimally to my command, but did demonstrate a little bit better strength in the right arm today than yesterday. She appears to have full left visual field on confrontational finger counting. Responses are still inconsistent in the right field, but she was able to count fingers in the right visual field today better than before. She followed some simple commands. She had trouble following commands requiring digit distinction. She was able to repeat some phrases, but had trouble with repeating other phrases. IMPRESSION/PLAN: Persistent left hemisphere syndrome, but definitely improved over the last few days. We discussed my uncertainty regarding etiology for recent seizures. MRI will be helpful when available, but still is not urgent. I would continue current seizure medication regimen with fosphenytoin 400 mg q.12 hours and levetiracetam 500 mg q.12 hours. When she is swallowing consistently, we can switch these to p.o. doses. Thanks for asking Neurology to see Ms. Pizarro. cc: MD CARL Amaro III
[2019-09-18] MEDS: MAXIPIME 2 GM/NS 2 GM/100 ML IVPB IV SCH (16:23)
--- NOTE | 2019-09-18 17:03 | PROGRESS NOTE ---
DATE: 09/18/2019 SUBJECTIVE: The patient has no major complaints. OBJECTIVE: Blood pressure 102/43, heart rate of 89, respiratory rate of 25, temperature was normal.Cardiovascular: Regular rate and rhythm. Pulmonary: Bilateral breath sounds clear to auscultation. GI: Soft, nontender, nondistended. Bowel sounds are positive. Neuro: It is a remarkable recovery. I mean she is talking. Sentences are a bit scattered, but she does talk. She obviously has some difficulty with word recollection, but she tracks without problems. She moves her left hand without problem, but it is purposeful. She is following commands. She is even moving her right arm and a little bit of her right leg which was completely immovable before so is much improved. White count of 11, hemoglobin and hematocrit 10 and 34, platelet count 360,000 pH 7.52, pCO2 53 PaO2 104. Sugars are in the 200s. Rest of her lytes are good. Pulmonary arteriogram showed dense dependent consolidations. PROBLEM LIST: 1. Acute hypoxic respiratory failure likely now due to pneumonia. She is off BiPAP. She is on 100%, but I think we could probably wean her. There is no PE. She is already on antibiotics but has been since admission, Zyvox and cefepime which now that her kidney function is better we may want to change that around. I am going to switch her to Vancomycin and increase her dose of cefepime. 2. In any case, neurologically, her encephalopathy is resolving. I am less convinced now she has had a stroke, although I do think she still needs an MRI but maybe not as urgently as previously thought just to rule out stroke because she is definitely weaker on the right side and she had focal seizures on the right side, so it would argue that may be part of what is going on. Neurology I appreciate their input. 3. Seizure disorder. She is on Dilantin and phenytoin, so we are going to try to see if we can get a speech evaluation and see if we can try to get her to swallow on her own. She is speaking in complete sentences, granted they are 2 or 3 word sentences, but this is remarkable recovery. 4. Acute kidney injury. That seems to be better. 5. Diabetes. We are going to adjust her medication. She is on tube feeds. We may be able to progress to normal foods. 6. Disposition. Possibly even go to step-down soon. We are going to kind of see how she does. Maybe a couple good days in a row 1st. In synopsis, this is a patient who was found obtunded, question of abuse, initially with acute kidney injury rhabdomyolysis, was not found for over 2 days with multiple pressure ulcers, injuries, hypothermic, septic presumably due to pneumonia, possibly skin related, although I do not think cultures have necessarily shown anything. Was intubated for airway protection, developed seizures most consistent with status epilepticus, requiring multiple manipulations in her antiepileptic medications. Was able to be extubated, now has pneumonia that is denser so may be institutional acquired. I put her on vancomycin and have increased her cefepime to full dose. Infectious Disease is not available right now. We will get Pulmonary to re-evaluate her, but I think now if she continues to improve, feed her and get her into PT/OT. She will likely need rehab so we will continue to follow. cc: Jorge Garcia MD
[2019-09-18] MEDS ORDERED: VANCOMYCIN 1,800 MG in NS 250 ML IV ONE (18:00)
[2019-09-18] MEDS: PROTONIX IV SCH (20:26)
[2019-09-18] MEDS: LOVENOX SUBQ SCH (20:31)
[2019-09-19] MEDS: LASIX IV SCH ×3 (00:06→23:14)
[2019-09-19] MEDS: HUMULIN R SUBQ SCH ×7 (00:06→23:14)
--- NOTE | 2019-09-19 01:49 | PULMONOLOGY PROGRESS NOTE ---
DATE: 09/18/2019 SUBJECTIVE: The patient is awake and alert. She answers questions. She has some limited movement of the right upper extremity. OBJECTIVE: Vital Signs: The patient has been afebrile for the last 24 hours. Blood pressure 107/56, heart rate 90, respiratory rate 24, oxygen saturation 100% on non-rebreather. HEENT: Pupils are equal and reactive. Oropharynx is clear. Neck: Supple. Chest: Reveals decreased breath sounds both lung bases. Cardiac: S1-S2. Abdomen: Obese and soft. Extremities: Without edema. LABORATORIES: Chest x-ray reveals bilateral lower lobe pneumonia with no evidence of pulmonary embolism. She has a stable 1 cm nodule right perihilar region. White blood count 11.19, hemoglobin 10.3, platelet count 360,000. Sodium 7.52. Hemoglobin 53. PO2 104. Arterial blood gas reveals a pH 7.52, pCO2 of 53, PO2 of 104. IMPRESSION: A 64-year-old with: 1. Acute respiratory failure. 2. Bilateral pneumonia. 3. Seizures. 4. Right upper extremity weakness. 5. Fluctuating encephalopathy. 6. Renal failure which has resolved. PLAN: 1. Continue BiPAP at bedtime and p.r.n. 2. Continue seizure medications per Neurology. 3. Continue current antibiotic regimen. cc: Antonio Rae MD
[2019-09-19] MEDS: CEREBYX IV SCH ×2 (02:17→15:34)
[2019-09-19] MEDS: NS IV SCH ×2 (02:17→15:34)
[2019-09-19] MEDS: DUONEB (A & A) INH SCH ×6 (03:45→22:46)
[2019-09-19] MEDS: MAXIPIME 2 GM/NS 2 GM/100 ML IVPB IV SCH ×2 (04:27→16:11)
[2019-09-19] MEDS: KEPPRA 500 MG/NS 500 MG/100 ML IVPB IV SCH ×2 (04:27→15:35)
[2019-09-19 04:35] LABS: ALLEN TEST YES; BE 20.6 mmoll (-3.0-3.0); BLOOD TYPE ARTERIAL; METHB 0.7 % (0.0-1.5); O2HB 96.9 % (95.0-99.0); PO2(98.6) 105 mmHg (60-100); SAMPLE BLOOD; SAO2 98.6 % (95.0-100.0); THB 10.9 g/dL (11.5-17.4)
[2019-09-19 04:37] LABS: MODALITY BI PAP; PCO2(98.6) 60 mmHg (35-45)
[2019-09-19] MEDS: VANCOMYCIN 1,500 MG in NS 250 ML IV SCH ×2 (05:23→20:57)
--- NOTE | 2019-09-19 05:50 | Diag Imaging Result Doc PS360 ---
EXAM: CHEST-PORTABLE HISTORY: respiratory failure TECHNIQUE: Single view COMPARISON: 09/18/2019 FINDINGS: Poor inspiratory effort. No change in the nasogastric tube or right-sided PICC line. Mild cardiomegaly. Mild vascular prominence. Interval decrease in the lower right lung infiltrates. Findings in the left arm relatively similar. IMPRESSION: Mild interval improvement Electronically signed by Daniel Montgomery 09/19/2019 5:48 AM
[2019-09-19] MEDS: TUMS PO PRN (06:24)
[2019-09-19 06:28] LABS: BASO# 0.02 X1000 (0.0-0.2); BASO% 0.2 % (0.0-0.8); EOS# 0.14 X1000 (0.0-0.7); EOS% 1.3 % (0.0-10.0); HEMATOCRIT 28.7 % (37.0-47.0); HEMOGLOBIN 8.5 g/dL (12.0-16.0); IMM GRAN% 0.9 % (0.0-0.5); LYMPH# 1.25 X1000 (1.2-3.4); LYMPH% 11.2 % (20.5-51.1); MCH 26.2 PG (27-31); MCHC 29.6 g/dL (33-37); MCV 88.6 FL (81-99); MONO# 1.31 X1000 (0.11-0.59); MONO% 11.7 % (1.7-9.3); MPV 9.3 FL (7.4-10.4); NEUT# 8.37 X1000 (1.4-6.5); NEUT% 74.7 % (42.2-75.2); PLT 445 X1000 (130-400); RBC 3.24 XMIL (4.2-5.4); RDW 15.4 % (11.5-14.5); WBC 11.19 X1000 (4.8-10.8)
[2019-09-19 07:04] LABS: AGAP 11; BUN 15 mg/dL (8-22); CALCIUM 8.1 mg/dL (8.8-10.2); CHLORIDE 88 mmol/L (98-107); COSMO 285; CREATININE 0.6 mg/dL (0.5-0.9); ESTIMATED GFR > 60; GLUCOSE 182 mg/dL (70-104); SODIUM 140 mmol/L (136-145); TCO2 41 mmol/L (25-35)
[2019-09-19] MEDS ORDERED: SYNTHROID IV ONE (07:09)
[2019-09-19] MEDS: PULMICORT INH SCH ×2 (07:49→19:27)
--- NOTE | 2019-09-19 08:58 | PROGRESS NOTE ---
DATE: 09/19/2019 INTERVAL HISTORY: No acute events overnight. SUBJECTIVE: Ms. Pizarro is awake, alert, and she is answering most questions appropriately. She is on BiPAP. Because of BiPAP, she is not able to engage in a lot of encounter. She does complain of a cough. She denies any chest pain. VITALS: Evaluation suggests temperature of 97.8 degrees, pulse 89, respiratory rate 19, blood pressure 130/51, saturating 96% on BiPAP. PHYSICAL EXAMINATION: General: Not in acute distress. HEENT: Oral cavity appears moist. Lungs: She has poor inspiratory effort, so chest auscultation becomes challenging. I could not appreciate any obvious wheezes. Cardiovascular: S1, S2 normal. No murmur, rub, or gallop. Abdomen: Soft, nontender. Extremities: She does not have lower extremity edema. She has a urine catheter, right arm PICC line. Neurological examination: She has a right-sided ptosis. She appears to have extensor deformity of right ankle joint. There is also hyperreflexia of the right knee jerk as compared to left, and there is hypertonia at right ankle joint. She is not able to follow commands on right upper extremity. LABORATORY: Suggestive of WBC of 11,000, hemoglobin 8.5, platelets 445,000. She does have a degree of metabolic alkalosis. Her hypokalemia is currently being repleted. MICROBIOLOGY: Clostridium difficile antigen and toxin analysis was negative. ASSESSMENT AND PLAN: 1. Acute hypoxic respiratory failure due to bilateral lower lobe pneumonia. Continue intravenous vancomycin and intravenous cefepime. Continue to cycle BiPAP and nasal cannula as tolerated. 2. Acute encephalopathy on presentation. Differential includes sepsis due to pneumonia, seizure, cerebrovascular accident. Her encephalopathy appears to be resolving. Will continue to monitor her mental status. 3. Suspected cerebrovascular accident based on neurological examination, likely affecting left- sided hemisphere. I will get echocardiogram and ultrasound carotids. Once her oxygenation improves, at that point I will consider getting a magnetic resonance imaging. Continue aspirin and high-dose atorvastatin. 4. Seizure disorder. Continue intravenous fosphenytoin and levetiracetam. 5. Uncontrolled diabetes with hyperglycemia: Her DKA has resolved. I will continue long acting and sliding scale insulin and adjust the dose accordingly. 5. Others. Continue levothyroxine for hypothyroidism, haloperidol as needed for agitation. Her hypokalemia is currently being repleted, pantoprazole for stress ulcer prophylaxis. DISPOSITION: Will continue to monitor patient inside the hospital. Plan of care discussed with her. I will continue nasogastric tube feeding and advance oral diet as recommended by swallow evaluation and Speech evaluation. Continue physical therapy. TIME SPENT: More than 30 minutes of critical care time spent taking care of this patient. Plan of care discussed with the patient. All of her questions have been answered. cc: Amauri Perez MD [facility]
[2019-09-19] MEDS: POTASSIUM CHLORIDE 20 MEQ/SWI 20 MEQ/100 ML IVPB IV SCH ×2 (09:13→10:37)
[2019-09-19] MEDS: LANTUS INSULIN SUBQ SCH (09:14)
[2019-09-19] MEDS: LIPITOR PO SCH ×2 (09:14→20:58)
[2019-09-19] MEDS: EFFEXOR PO SCH ×2 (09:14→20:58)
[2019-09-19] MEDS: ASPIRIN PO SCH (09:14)
[2019-09-19] MEDS: MYCOSTATIN POWDER TOP SCH ×2 (10:35→20:58)
[2019-09-19] MEDS: SANTYL OINT TOP SCH (10:36)
--- NOTE | 2019-09-19 17:36 | NEUROLOGY PROGRESS NOTE ---
DATE: 09/19/2019 Ms. Pizarro is awake, alert, attentive. She initiated conversation with me. Speech is a little bit dysarthric but easily understood. She still had trouble with bedside tests of repeating, but performance was improved compared to yesterday. She has more consistent and definite ability to count fingers in the right visual field today. She continues to have right hemiparesis. I believe her right arm movement may be slightly improved today compared to yesterday. She continues to use her left arm well. She reports equal sensation over the right and left hands. Neck is supple. IMPRESSION: Persistent left hemisphere syndrome, clinically slightly improved day by day. In light of her age and risk factors, this seems most likely ischemic left hemisphere infarction. We were never able to demonstrate that on serial noncontrast CT scans done earlier this admission. When MRI is practical, that will be helpful, but is not urgent. She has not had clinical seizure in many days. Last phenytoin level was 16.8 four days ago. She continues fosphenytoin 400 mg IV q.12 hours. That is a relatively high dose, and I will repeat the phenytoin level. She continues levetiracetam 500 mg IV q.12 hours. Creatinine is 0.6, so I do not think levetiracetam level will be helpful. We might consider EEG again later. No other suggestions today. I discussed neurology status with brother. cc: MD CARL Amaro III
[2019-09-19] MEDS: PROTONIX IV SCH (20:58)
[2019-09-19] MEDS: LOVENOX SUBQ SCH (20:58)
[2019-09-19] MEDS ORDERED: LOVENOX SUBQ SCH (21:00)
--- NOTE | 2019-09-20 00:01 | PROVIDER PROGRESS NOTE ---
Progress Note Dr. Mehta Progress Note/Pulmonary and or critical care Subjective: The patient is lying in bed on VM 50%. She has SOB with any activities. She is still on NG tube feeding. She also takes ice chip occasionally and tolerates well. No family at the bedside. Input was appreciated from Dr. Perez and other teams on the case. Objective: Vital Signs: T 99.3 (no fever in last 24 hours), HI 93, RR 23, BP 119/57 and SaO2 91% on VM 50%. I/O: +165 ml. Physical Examination: General: Obese. No acute distress noted. HEENT: Normocephalic. Trachea midline. NG tube in place. Mucosa pink and moist. Chest: Mild tachypnea. No increased work of breathing. Symmetrical excursion. Diminished breathing sounds bibasilarly. CVS: S1 and S2 appreciated. Abdomen: Soft. Non-distended. Obese. Normoactive bowel sounds noted. Extremities: No edema. No cyanosis. No clubbing. Neuro: A/O x3. RUE weakness present. Labs and Radiology: Laboratory Results 09/18/19 09/19/19 09/19/19 23:59 03:52 04:24 WBC RBC Hgb Hct MCV MCH MCHC RDW Std Deviation Plt Count MPV Immature Gran % (Auto) Neut % (Auto) Lymph % (Auto) Granite % (Auto) Eos % (Auto) Baso % (Auto) Immature Gran # (Auto) Neut # (Auto) Lymph # (Auto) Granite # (Auto) Eos # (Auto) Baso # (Auto) Specimen Type Sample Site pH pCO2 pO2 HCO3 Base Excess Oxyhemoglobin ABG O2 Sat (Calculated) ABG O2 Saturation ABG Carboxyhemoglobin ABG Methemoglobin Aris Test A-a O2 Difference Total Hemoglobin POC Ioniz Calcium 1.00 L Lactate Blood Gas Modality Vent Mode FiO2 % Inspiratory BiPAP Expiratory BiPAP Sodium Potassium Chloride Carbon Dioxide Anion Gap BUN Creatinine Estimated GFR/1.73 m2 BUN/Creatinine Ratio Glucose POC Glucose 222 H 183 H Calculated Osmolality Calcium Total Phenytoin 09/19/19 09/19/19 09/19/19 04:24 04:40 04:40 WBC 11.19 H RBC 3.24 L Hgb 8.5 L D Hct 28.7 L MCV 88.6 MCH 26.2 L MCHC 29.6 L RDW Std Deviation 15.4 H Plt Count 445 H MPV 9.3 Immature Gran % (Auto) 0.9 H Neut % (Auto) 74.7 Lymph % (Auto) 11.2 L Granite % (Auto) 11.7 H Eos % (Auto) 1.3 Baso % (Auto) 0.2 Immature Gran # (Auto) 0.10 H Neut # (Auto) 8.37 H Lymph # (Auto) 1.25 Granite # (Auto) 1.31 H Eos # (Auto) 0.14 Baso # (Auto) 0.02 Specimen Type ARTERIAL Sample Site R RADIAL pH 7.50 H pCO2 60 H* pO2 105 H HCO3 41.0 H Base Excess 20.6 H Oxyhemoglobin 96.9 ABG O2 Sat (Calculated) 15.0 ABG O2 Saturation 98.6 ABG Carboxyhemoglobin 1.00 ABG Methemoglobin 0.7 Aris Test YES A-a O2 Difference 355.0 Total Hemoglobin 10.9 L POC Ioniz Calcium Lactate 1.10 Blood Gas Modality BI PAP Vent Mode BIPAP FiO2 % 75.0 Inspiratory BiPAP 16.0 Expiratory BiPAP 6.0 Sodium 140 Potassium 3.0 L D Chloride 88 L Carbon Dioxide 41 H Anion Gap 11 BUN 15 Creatinine 0.6 Estimated GFR/1.73 m2 > 60 BUN/Creatinine Ratio 25 Glucose 182 H POC Glucose Calculated Osmolality 285 Calcium 8.1 L Total Phenytoin 09/19/19 09/19/19 09/19/19 08:18 12:26 15:19 WBC RBC Hgb Hct MCV MCH MCHC RDW Std Deviation Plt Count MPV Immature Gran % (Auto) Neut % (Auto) Lymph % (Auto) Granite % (Auto) Eos % (Auto) Baso % (Auto) Immature Gran # (Auto) Neut # (Auto) Lymph # (Auto) Granite # (Auto) Eos # (Auto) Baso # (Auto) Specimen Type Sample Site pH pCO2 pO2 HCO3 Base Excess Oxyhemoglobin ABG O2 Sat (Calculated) ABG O2 Saturation ABG Carboxyhemoglobin ABG Methemoglobin Aris Test A-a O2 Difference Total Hemoglobin POC Ioniz Calcium Lactate Blood Gas Modality Vent Mode FiO2 % Inspiratory BiPAP Expiratory BiPAP Sodium Potassium Chloride Carbon Dioxide Anion Gap BUN Creatinine Estimated GFR/1.73 m2 BUN/Creatinine Ratio Glucose POC Glucose 193 H 229 H Calculated Osmolality Calcium Total Phenytoin 9.10 L 09/19/19 09/19/19 09/19/19 16:14 20:11 23:08 WBC RBC Hgb Hct MCV MCH MCHC RDW Std Deviation Plt Count MPV Immature Gran % (Auto) Neut % (Auto) Lymph % (Auto) Granite % (Auto) Eos % (Auto) Baso % (Auto) Immature Gran # (Auto) Neut # (Auto) Lymph # (Auto) Granite # (Auto) Eos # (Auto) Baso # (Auto) Specimen Type Sample Site pH pCO2 pO2 HCO3 Base Excess Oxyhemoglobin ABG O2 Sat (Calculated) ABG O2 Saturation ABG Carboxyhemoglobin ABG Methemoglobin Aris Test A-a O2 Difference Total Hemoglobin POC Ioniz Calcium Lactate Blood Gas Modality Vent Mode FiO2 % Inspiratory BiPAP Expiratory BiPAP Sodium Potassium Chloride Carbon Dioxide Anion Gap BUN Creatinine Estimated GFR/1.73 m2 BUN/Creatinine Ratio Glucose POC Glucose 259 H 227 H 225 H Calculated Osmolality Calcium Total Phenytoin Assessment: Acute hypoxic respiratory failure likely secondary to pneumonia. Pulmonary embolism ruled out by CTPA on 09/18/19. Pneumonia, likely institutional required. CTPA on 09/18/19 revealed worsened dense dependent consolidations, mainly involving the lower lobes bilaterally indicating pneumonia likely with a component of atelectasis. CXR today shows mild interval improvement. Right perihilar pulmonary nodule, 1cm, noncalcified. Suspected CVA. Seizures. Neurology on board. Rhabdomyolysis and renal failure, resolved. Fluctuating encephalopathy with RUE weakness and some visual field changes. Alkalemia with respiratory acidosis and metabolic alkalosis. Plan: Weaning oxygen as tolerated. Continue BiPAP at bedtime and as needed. Diuresis as tolerated. Continue antibiotics: Zyvox was discontinued yesterday, Cefepime dosage increased since yesterday, and Vancomycin started since yesterday. Continue bronchodilators Continue GI prophylaxis with Protonix and DVT prophylaxis with Lovenox. Evaluation time in minutes: 32 minutes
[2019-09-20] MEDS: CEREBYX IV SCH ×2 (03:20→16:16)
[2019-09-20] MEDS: NS IV SCH ×2 (03:20→16:16)
[2019-09-20] MEDS: KEPPRA 500 MG/NS 500 MG/100 ML IVPB IV SCH ×2 (03:20→17:08)
[2019-09-20] MEDS: DUONEB (A & A) INH SCH ×2 (03:24→08:12)
[2019-09-20 05:17] LABS: ALLEN TEST YES; BE 18.6 mmoll (-3.0-3.0); BLOOD TYPE ARTERIAL; HCO3-(ACT) 39.5 mmoll (20.0-26.0); O2(CT) 13.4 mL/dL (15.0-23.0); O2HB 97.8 % (95.0-99.0); PO2(98.6) 104 mmHg (60-100); SAMPLE BLOOD; SAO2 100.3 % (95.0-100.0); THB 9.6 g/dL (11.5-17.4); pH(98.6) 7.51 (7.35-7.45)
[2019-09-20] MEDS: HUMULIN R SUBQ SCH ×2 (05:18→07:55)
[2019-09-20 05:19] LABS: MODALITY BI PAP; PCO2(98.6) 55 mmHg (35-45)
[2019-09-20] MEDS: MAXIPIME 2 GM/NS 2 GM/100 ML IVPB IV SCH ×2 (05:19→17:13)
[2019-09-20 05:49] LABS: BASO# 0.02 X1000 (0.0-0.2); BASO% 0.2 % (0.0-0.8); EOS# 0.13 X1000 (0.0-0.7); EOS% 1.2 % (0.0-10.0); HEMATOCRIT 29.2 % (37.0-47.0); HEMOGLOBIN 8.6 g/dL (12.0-16.0); IMM GRAN% 0.9 % (0.0-0.5); LYMPH# 1.27 X1000 (1.2-3.4); LYMPH% 11.9 % (20.5-51.1); MCHC 29.5 g/dL (33-37); MCV 88.2 FL (81-99); MONO# 1.08 X1000 (0.11-0.59); MONO% 10.2 % (1.7-9.3); NEUT# 8.04 X1000 (1.4-6.5); NEUT% 75.6 % (42.2-75.2); PLT 463 X1000 (130-400); RBC 3.31 XMIL (4.2-5.4); RDW 15.4 % (11.5-14.5); WBC 10.64 X1000 (4.8-10.8)
[2019-09-20 06:12] LABS: AGAP 12; ALB/GLOB RATIO 0.7; ALBUMIN 2.5 g/dL (3.5-5.0); ALKALINE PHOSPHATASE 93 U/L (32-104); BUN 17 mg/dL (8-22); CALCIUM 8.4 mg/dL (8.8-10.2); CHLORIDE 88 mmol/L (98-107); COSMO 286; CREATININE 0.6 mg/dL (0.5-0.9); ESTIMATED GFR > 60; GLUCOSE 263 mg/dL (70-104); GOT 24 U/L (10-30); GPT 22 U/L (10-36); MAGNESIUM 1.7 mg/dL (1.5-2.7); POTASSIUM 3.5 mmol/L (3.5-5.1); SODIUM 138 mmol/L (136-145); TCO2 38 mmol/L (25-35); TOTAL BILIRUBIN < 0.15 mg/dL (0.20-1.00); TOTAL PROTEIN 6.1 g/dL (6.3-8.3)
[2019-09-20] MEDS ORDERED: SYNTHROID IV SCH (07:00)
--- NOTE | 2019-09-20 07:06 | Diag Imaging Result Doc PS360 ---
EXAM: CHEST-PORTABLE 09/20/2019 HISTORY: respiratory failure TECHNIQUE: AP portable at 0538 COMMENT: There is somewhat improved opacification in the retrocardiac region of the left lower lobe and the right hemidiaphragm is less obscured. The NG tube remains below the diaphragm. IMPRESSION: Improved atelectasis or pneumonia left lower lobe. Electronically signed by Nishant Hernandez 09/20/2019 7:04 AM
[2019-09-20] MEDS: LANTUS INSULIN SUBQ SCH ×2 (07:48→09:13)
[2019-09-20] MEDS: ASPIRIN PO SCH ×2 (07:48→09:13)
[2019-09-20] MEDS: EFFEXOR PO SCH ×3 (07:48→23:16)
[2019-09-20] MEDS: LIPITOR PO SCH ×2 (07:48→23:16)
[2019-09-20] MEDS: PULMICORT INH SCH ×2 (08:12→19:59)
[2019-09-20] MEDS ORDERED: ZAROXOLYN PO ONE (08:27)
[2019-09-20] MEDS ORDERED: HALDOL IV PRN (08:31)
[2019-09-20] MEDS ORDERED: ATIVAN IV PRN (08:31)
[2019-09-20] MEDS: MYCOSTATIN POWDER TOP SCH ×2 (09:25→23:59)
[2019-09-20] MEDS: KLOR-CON PO SCH ×2 (09:25→12:42)
[2019-09-20] MEDS: SANTYL OINT TOP SCH (09:25)
--- NOTE | 2019-09-20 11:13 | PROGRESS NOTE ---
DATE: 09/20/2019 INTERVAL HISTORY: No acute events overnight. SUBJECTIVE: Ms. Pizarro is feeling better. She is eating her breakfast at the time of my evaluation. She denies any chest pain or shortness of breath. She denies any cough. We discussed about possible stroke. We discussed about seizure, pneumonia. She does appear to have some memory gap and she could not recall the events very well. VITAL SIGNS: Temperature of 97.9 degrees, pulse 86, respiratory rate 18, blood pressure 140/70. She is saturating 92% to 93% on 6 L nasal cannula. PHYSICAL EXAMINATION: General: Not in acute distress. HEENT: Oral cavity is moist. She has poor inspiratory effort. No wheeze. Air entry appears bilaterally equal. She has crackles in infrascapular region. Heart: S1, S2 normal. No murmur or gallop. Abdomen: Soft, nontender. Extremities: Mild lower extremity edema. She has a urine catheter. She is alert. She does have right-sided ptosis. She is able to move right upper extremity better than previous examination. She does have hypertonia and hyperreflexia of right upper and lower extremity on biceps and knee jerk. Input and output suggest positive 1000 mL. LABORATORY: Suggestive of WBC 10,000, hemoglobin 8.6, platelets 463,000. Her pO2 is 104 on 60% BiPAP. Her BUN is 17, creatinine 0.6, potassium is 3.5, magnesium of 1.7. MICROBIOLOGY: No positive data. Chest x-ray suggests improved atelectasis or pneumonia of the left lower lobe. ASSESSMENT AND PLAN: 1. Acute hypoxic respiratory failure due to bilateral lower lobe pneumonia. Continue intravenous vancomycin, intravenous cefepime, and cycle BiPAP to nasal cannula as tolerated. She also has a component of acute pulmonary edema for which I will give her 1 time dose of oral metolazone and continue intravenous Lasix. 2. Acute encephalopathy on presentation. Differential includes sepsis due to pneumonia, seizure and postictal state, cerebrovascular accident. Encephalopathy slowly has been resolving. She appears to have some residual neurological defects. I will continue to monitor her mental status. 3. Suspected left hemispheric cerebrovascular accident based on neurological examination. Echocardiogram did not have intracardiac thrombus. Follow up ultrasound carotid. I will order magnetic resonance imaging to be performed on Sunday. Continue aspirin and high-dose atorvastatin. 4. Seizures during hospitalization. The patient denies prior history of seizures and is not listed to be taking any antiseizure medication. Continue current dose of fosphenytoin and levetiracetam as per Neurology recommendation. 5. Uncontrolled insulin-dependent diabetes mellitus type 2 and diabetic ketoacidosis on presentation. I will add mealtime insulin, continue long-acting insulin and adjust the dose according to her response. 6. Others. Continue levothyroxine for hypothyroidism, haloperidol as needed for agitation, intravenous Lasix, and 1 time metolazone for volume overload since hospital presentation, venlafaxine for her home medication, and famotidine for her chronic gastroesophageal reflux disease, enoxaparin for deep venous thrombosis prophylaxis. I will stop omeprazole since she has been extubated. I will discontinue nasogastric tube feeding since her oral intake has been improving. Appreciate Speech Therapy's recommendations. DISPOSITION: I will continue to monitor patient in ICU considering her high oxygen requirements and she could be considered for transfer to [facility] based on her oxygen needs in next 24 hours. Plan of care discussed with the patient. Yesterday, I had a detailed discussion of plan of care with the patient's son and at bedside. Their questions have been satisfactorily answered. cc: Amauri Perez MD
[2019-09-20] MEDS: DUONEB (A & A) INH PRN ×3 (11:50→23:26)
[2019-09-20] MEDS: LASIX IV SCH ×2 (12:41→23:16)
[2019-09-20] MEDS: HUMALOG SUBQ SCH ×5 (12:42→23:16)
[2019-09-20] MEDS: VANCOMYCIN 1,500 MG in NS 250 ML IV SCH (12:54)
--- NOTE | 2019-09-20 14:43 | Carotid Study ---
DATE: 09/19/2019 REFERRING PHYSICIAN: Dr. Perez. INTERPRETING PHYSICIAN: Dr. Pablo. TECH: Robert. The patient is sent to simply evaluate for stenosis. The velocities are noted. The right internal common carotid shows 0.86, left 1.3. Antegrade vertebral flow was present. No significant plaques identified. INTERPRETATION: No significant plaque disease identified even though the velocities are a little elevated on the left. No plaque is seen and no significant tortuosity is noted. No significant stenosis is present. cc: MD Amauri Mcknight MD [facility]
--- NOTE | 2019-09-20 18:14 | PROVIDER PROGRESS NOTE ---
Progress Note Dr. Mehta Progress Note/Pulmonary and or critical care Subjective: The patient is lying in bed on NC 6L. RN reports she had been up this morning sitting in the bedside chair, eating her pureed diet and tolerates well. Patient states she is feeling better. She has productive cough at times, but not significant. Patients son and [id number] at the bedside. Input was appreciated from Dr. Perez and other teams on the case. Objective: Vital Signs: T 98.5 (no fever in last 24 hours), OR 85, RR 17, BP 132/54 and SaO2 91% on NC 6L. I/O: +1085 ml. Physical Examination: General: Obese. No acute distress noted. HEENT: Normocephalic. Trachea midline. NG tube in place. Mucosa pink and moist. Chest: Mild tachypnea. No increased work of breathing. Symmetrical excursion. Diminished breathing sounds bibasilarly with occasional bronchi bilaterally. CVS: S1 and S2 appreciated. Abdomen: Soft. Non-distended. Obese. Normoactive bowel sounds noted. Extremities: No edema. No cyanosis. No clubbing. Neuro: A/O x3. RUE ptosis present. Answer simple questions. Labs and Radiology: Laboratory Results 09/19/19 09/19/19 09/20/19 20:11 23:08 04:30 WBC 10.64 RBC 3.31 L Hgb 8.6 L Hct 29.2 L MCV 88.2 MCH 26.0 L MCHC 29.5 L RDW Std Deviation 15.4 H Plt Count 463 H MPV 9.0 Immature Gran % (Auto) 0.9 H Neut % (Auto) 75.6 H Lymph % (Auto) 11.9 L [place] % (Auto) 10.2 H Eos % (Auto) 1.2 Baso % (Auto) 0.2 Immature Gran # (Auto) 0.10 H Neut # (Auto) 8.04 H Lymph # (Auto) 1.27 [place] # (Auto) 1.08 H Eos # (Auto) 0.13 Baso # (Auto) 0.02 Specimen Type Sample Site pH pCO2 pO2 HCO3 Base Excess Oxyhemoglobin ABG O2 Sat (Calculated) ABG O2 Saturation ABG Carboxyhemoglobin ABG Methemoglobin Aris Test A-a O2 Difference Total Hemoglobin POC Ioniz Calcium Lactate Blood Gas Modality Vent Mode FiO2 % Inspiratory BiPAP Expiratory BiPAP Sodium Potassium Chloride Carbon Dioxide Anion Gap BUN Creatinine Estimated GFR/1.73 m2 BUN/Creatinine Ratio Glucose POC Glucose 227 H 225 H Calculated Osmolality Calcium Magnesium Total Bilirubin AST ALT Alkaline Phosphatase Total Protein Albumin Globulin Albumin/Globulin Ratio Random Vancomycin 09/20/19 09/20/19 09/20/19 04:30 04:30 04:49 WBC RBC Hgb Hct MCV MCH MCHC RDW Std Deviation Plt Count MPV Immature Gran % (Auto) Neut % (Auto) Lymph % (Auto) [place] % (Auto) Eos % (Auto) Baso % (Auto) Immature Gran # (Auto) Neut # (Auto) Lymph # (Auto) [place] # (Auto) Eos # (Auto) Baso # (Auto) Specimen Type Sample Site pH pCO2 pO2 HCO3 Base Excess Oxyhemoglobin ABG O2 Sat (Calculated) ABG O2 Saturation ABG Carboxyhemoglobin ABG Methemoglobin Aris Test A-a O2 Difference Total Hemoglobin POC Ioniz Calcium Lactate Blood Gas Modality Vent Mode FiO2 % Inspiratory BiPAP Expiratory BiPAP Sodium 138 Potassium 3.5 D Chloride 88 L Carbon Dioxide 38 H Anion Gap 12 BUN 17 Creatinine 0.6 Estimated GFR/1.73 m2 > 60 BUN/Creatinine Ratio 28 Glucose 263 H POC Glucose 260 H Calculated Osmolality 286 Calcium 8.4 L Magnesium 1.7 Total Bilirubin < 0.15 L AST 24 ALT 22 Alkaline Phosphatase 93 Total Protein 6.1 L Albumin 2.5 L Globulin 3.6 Albumin/Globulin Ratio 0.7 Random Vancomycin 26.00 09/20/19 09/20/19 09/20/19 05:07 05:10 07:55 WBC RBC Hgb Hct MCV MCH MCHC RDW Std Deviation Plt Count MPV Immature Gran % (Auto) Neut % (Auto) Lymph % (Auto) [place] % (Auto) Eos % (Auto) Baso % (Auto) Immature Gran # (Auto) Neut # (Auto) Lymph # (Auto) [place] # (Auto) Eos # (Auto) Baso # (Auto) Specimen Type ARTERIAL Sample Site R RADIAL pH 7.51 H pCO2 55 H* pO2 104 H HCO3 39.5 H Base Excess 18.6 H Oxyhemoglobin 97.8 ABG O2 Sat (Calculated) 13.4 L ABG O2 Saturation 100.3 H ABG Carboxyhemoglobin 2.50 ABG Methemoglobin 0.0 Aris Test YES A-a O2 Difference 255.0 Total Hemoglobin 9.6 L POC Ioniz Calcium 1.05 L Lactate 0.90 Blood Gas Modality BI PAP Vent Mode BIPAP FiO2 % 60.0 Inspiratory BiPAP 16.0 Expiratory BiPAP 6.0 Sodium Potassium Chloride Carbon Dioxide Anion Gap BUN Creatinine Estimated GFR/1.73 m2 BUN/Creatinine Ratio Glucose POC Glucose 280 H Calculated Osmolality Calcium Magnesium Total Bilirubin AST ALT Alkaline Phosphatase Total Protein Albumin Globulin Albumin/Globulin Ratio Random Vancomycin 09/20/19 09/20/19 12:45 16:10 WBC RBC Hgb Hct MCV MCH MCHC RDW Std Deviation Plt Count MPV Immature Gran % (Auto) Neut % (Auto) Lymph % (Auto) [place] % (Auto) Eos % (Auto) Baso % (Auto) Immature Gran # (Auto) Neut # (Auto) Lymph # (Auto) [place] # (Auto) Eos # (Auto) Baso # (Auto) Specimen Type Sample Site pH pCO2 pO2 HCO3 Base Excess Oxyhemoglobin ABG O2 Sat (Calculated) ABG O2 Saturation ABG Carboxyhemoglobin ABG Methemoglobin Aris Test A-a O2 Difference Total Hemoglobin POC Ioniz Calcium Lactate Blood Gas Modality Vent Mode FiO2 % Inspiratory BiPAP Expiratory BiPAP Sodium Potassium Chloride Carbon Dioxide Anion Gap BUN Creatinine Estimated GFR/1.73 m2 BUN/Creatinine Ratio Glucose POC Glucose 256 H 107 H D Calculated Osmolality Calcium Magnesium Total Bilirubin AST ALT Alkaline Phosphatase Total Protein Albumin Globulin Albumin/Globulin Ratio Random Vancomycin Assessment: Acute hypoxic respiratory failure likely secondary to pneumonia. Pulmonary embolism ruled out by CTPA on 09/18/19. Slowly improving. Tolerates NC 6L at this time. Pneumonia, likely institutional required. CTPA on 09/18/19 revealed worsened dense dependent consolidations, mainly involving the lower lobes bilaterally indicating pneumonia likely with a component of atelectasis. CXR today shows improved atelectasis +/- pneumonia left lower lobe. Right perihilar pulmonary nodule, 1cm, noncalcified. Suspected CVA. MRI pending on Sunday per Dr. Perez. Seizures. Neurology on board. Rhabdomyolysis and renal failure, resolved. Fluctuating encephalopathy with RUE weakness and some visual field changes. Alkalemia with respiratory acidosis and metabolic alkalosis. Plan: Weaning oxygen as tolerated. Continue BiPAP at bedtime and as needed. Continue antibiotics: Cefepime and Vancomycin. Continue bronchodilators. Start incentive spirometer. Encourage deep breathing. NG tube feeding discontinued per Dr. Perez. Continue GI prophylaxis with Protonix and DVT prophylaxis with Lovenox. Evaluation time in minutes: 31 minutes
[2019-09-20] MEDS: LOVENOX SUBQ SCH (23:16)
[2019-09-21] MEDS: CEREBYX IV SCH ×2 (04:20→16:52)
[2019-09-21] MEDS: NS IV SCH ×2 (04:20→16:52)
[2019-09-21] MEDS: KEPPRA 500 MG/NS 500 MG/100 ML IVPB IV SCH ×2 (04:21→16:52)
[2019-09-21 04:44] LABS: ALLEN TEST YES; BE 22.1 mmoll (-3.0-3.0); BLOOD TYPE ARTERIAL; HCO3-(ACT) 42.1 mmoll (20.0-26.0); METHB 0.6 % (0.0-1.5); O2(CT) 12.8 mL/dL (15.0-23.0); O2HB 92.4 % (95.0-99.0); PO2(98.6) 57 mmHg (60-100); SAMPLE BLOOD; SAO2 94.7 % (95.0-100.0); THB 9.8 g/dL (11.5-17.4)
[2019-09-21 04:45] LABS: MODALITY CANNULA; PCO2(98.6) 51 mmHg (35-45); pH(98.6) 7.57 (7.35-7.45)
[2019-09-21] MEDS ORDERED: TUMS PO ONE (04:54)
[2019-09-21] MEDS: VANCOMYCIN 1,500 MG in NS 250 ML IV SCH (05:23)
[2019-09-21] MEDS: MAXIPIME 2 GM/NS 2 GM/100 ML IVPB IV SCH ×2 (05:23→16:53)
[2019-09-21] MEDS: HUMALOG SUBQ SCH ×7 (06:14→21:18)
[2019-09-21] MEDS: SYNTHROID PO SCH (06:14)
[2019-09-21 06:52] LABS: AGAP 13; ALB/GLOB RATIO 0.7; ALBUMIN 2.8 g/dL (3.5-5.0); ALKALINE PHOSPHATASE 102 U/L (32-104); BUN 17 mg/dL (8-22); CALCIUM 9.4 mg/dL (8.8-10.2); CHLORIDE 86 mmol/L (98-107); COSMO 279; CREATININE 0.6 mg/dL (0.5-0.9); ESTIMATED GFR > 60; GLUCOSE 170 mg/dL (70-104); GOT 41 U/L (10-30); GPT 29 U/L (10-36); POTASSIUM 4.2 mmol/L (3.5-5.1); SODIUM 137 mmol/L (136-145); TCO2 38 mmol/L (25-35); TOTAL BILIRUBIN < 0.15 mg/dL (0.20-1.00); TOTAL PROTEIN 6.7 g/dL (6.3-8.3)
--- NOTE | 2019-09-21 07:14 | Diag Imaging Result Doc PS360 ---
EXAM: CHEST-PORTABLE 09/21/2019 HISTORY: respiratory failure TECHNIQUE: AP portable at 0532 COMMENT: There is a PICC line on the right with its tip just above the right atrium. There is slightly worsened opacification over the right hemidiaphragm compared to 09/20/2019. Otherwise are has been no significant change. IMPRESSION: Slightly worsened atelectasis right lower lobe. Electronically signed by Nishant Hernandez 09/21/2019 7:12 AM
--- NOTE | 2019-09-21 07:40 | PROGRESS NOTE ---
DATE: 09/21/2019 SUBJECTIVE: The patient reports feeling fine. Denies any chest pain, any chest pressure, any shortness of breath. No cough. No acute issues noted as per nursing staff overnight. OBJECTIVE: Vital Signs: Temperature 97.7 degrees, heart rate 90, respiratory rate 21, blood pressure 119/49, O2 saturation 92% on 6 L nasal cannula. General: She is a chronically ill- looking, 64-year-old female lying in bed, in no acute distress. Cardiovascular: S1, S2 heard. No murmurs, gallops, or rubs. Regular rate and rhythm. Respiratory: Minimal crackles noted still on both pulmonary bases. Patient not using any accessory muscles or having work of breathing. Abdomen: Soft. Nontender to palpation. Bowel sounds present. No organomegaly. No signs of peritoneal irritation. Extremities: Mild lower extremity edema. Peripheral pulses present in both legs. Genitourinary: The patient has a urine catheter in place. Neurological: The patient is awake, alert. Speech is coherent. LABORATORY DATA: There is an ABG that shows pH 7.327, pCO2 51, PO2 57 with normal BMP except glucose 170. ASSESSMENT AND PLAN: 1. Acute hypoxemic respiratory failure due to bilateral lower lobe pneumonia. Clinically, the patient continues to require 6 L of oxygen by nasal cannula. She reports not feeling short of breath. The patient is not moving from the bed. At this time, we will continue with current antibiotic therapy, in this case vancomycin and cefepime. We have been using BiPAP at night. The ABG from today shows metabolic alkalosis and respiratory acidosis. Patient, according to not from yesterday, she has pulmonary edema. The x-ray from today shows slightly worsening atelectasis in the right lower lobe, but there is no description for any worsening pulmonary edema. So at this point, we will continue with IV Lasix, but we are not going to add anything else. 2. Acute encephalopathy on presentation. I think that condition is resolved. Patient is alert and oriented. There is a suspicion for possible left hemispheric stroke, so patient is going to have MRI of the brain with and without contrast tomorrow. 3. Seizures during hospitalization. Neurology is following this patient. The patient is receiving Keppra and fosphenytoin as per Neurology recommendation. No more episodes of seizures since admission. We will continue to monitor. 4. Uncontrolled diabetes mellitus type 2 and diabetic ketoacidosis on presentation. At this point, the blood sugars are much better controlled. The blood sugars in the morning in the [facility] is 170. So we will continue with sliding scale insulin, Lantus 40 units daily. 5. Hypothyroidism. Will continue home doses of levothyroxine. 6. Chronic gastroesophageal reflux disease. We will continue with famotidine. 7. Patient has been started on diabetic diet. She has been on NG tube feeding. 8. Disposition. I think this patient looks more stable today, so will try to transfer her to the PVC unit today. cc: Clarence Joel MD
[2019-09-21] MEDS: DUONEB (A & A) INH PRN ×2 (07:51→19:35)
[2019-09-21] MEDS: PULMICORT INH SCH ×2 (07:52→19:35)
[2019-09-21] MEDS: ASPIRIN PO SCH (09:15)
[2019-09-21] MEDS: EFFEXOR PO SCH ×2 (09:15→21:17)
[2019-09-21] MEDS: SANTYL OINT TOP SCH (09:16)
[2019-09-21] MEDS: LANTUS INSULIN SUBQ SCH (09:16)
[2019-09-21] MEDS: MYCOSTATIN POWDER TOP SCH ×2 (09:17→21:23)
[2019-09-21] MEDS: LASIX IV SCH (14:31)
--- NOTE | 2019-09-21 14:40 | PROVIDER PROGRESS NOTE ---
Progress Note Dr. Mehta Progress Note/Pulmonary and or critical care Subjective: The patient is sleeping in the bedside recliner. She is NC 5L with SaO2 in low 90s. I was called early this morning about alkalemia which apparently is due to metabolic alkalosis. RN at that time reported that patient was alert and oriented, and she has no vomiting. Patient has been on Lasix 40mg BID since 09/12/19 and received extra Lasix 80mg on 09/17/19. So I hold Laxis this morning and will leave it for Dr. Pisano to manage. There is no family at the bedside. Input was appreciated from Dr. Pisano and other teams on the case. Objective: Vital Signs: 98.1 (no fever in last 24 hours), FL 91, RR 19, BP 132/55 and SaO2 95% on NC 4L. I/O: -2235 ml. Physical Examination: General: Obese. No acute distress noted. HEENT: Normocephalic. Trachea midline. Chest: Mild tachypnea. No increased work of breathing. Symmetrical excursion. Diminished breathing sounds bibasilarly with occasional bronchi bilaterally. CVS: S1 and S2 appreciated. Abdomen: Soft. Non-distended. Obese. Normoactive bowel sounds noted. Extremities: No edema. No cyanosis. No clubbing. Neuro: Sleeping. Labs and Radiology: Laboratory Results 09/20/19 09/21/19 09/21/19 20:50 04:20 04:33 Specimen Type Sample Site pH pCO2 pO2 HCO3 Base Excess Oxyhemoglobin ABG O2 Sat (Calculated) ABG O2 Saturation ABG Carboxyhemoglobin ABG Methemoglobin Aris Test A-a O2 Difference Total Hemoglobin POC Ioniz Calcium 1.11 L Lactate Liter Flow Blood Gas Modality FiO2 % Sodium 137 Potassium 4.2 D Chloride 86 L Carbon Dioxide 38 H Anion Gap 13 BUN 17 Creatinine 0.6 Estimated GFR/1.73 m2 > 60 BUN/Creatinine Ratio 28 Glucose 170 H POC Glucose 284 H D Calculated Osmolality 279 Calcium 9.4 Total Bilirubin < 0.15 L AST 41 H ALT 29 Alkaline Phosphatase 102 Total Protein 6.7 Albumin 2.8 L Globulin 3.9 Albumin/Globulin Ratio 0.7 09/21/19 09/21/19 09/21/19 04:34 06:08 10:51 Specimen Type ARTERIAL Sample Site R RADIAL pH 7.57 H* pCO2 51 H* pO2 57 L HCO3 42.1 H Base Excess 22.1 H Oxyhemoglobin 92.4 L ABG O2 Sat (Calculated) 12.8 L ABG O2 Saturation 94.7 L ABG Carboxyhemoglobin 1.70 ABG Methemoglobin 0.6 Aris Test YES A-a O2 Difference 193.0 Total Hemoglobin 9.8 L POC Ioniz Calcium Lactate 1.00 Liter Flow 6.0 Blood Gas Modality CANNULA FiO2 % 44.0 Sodium Potassium Chloride Carbon Dioxide Anion Gap BUN Creatinine Estimated GFR/1.73 m2 BUN/Creatinine Ratio Glucose POC Glucose 183 H 344 H D Calculated Osmolality Calcium Total Bilirubin AST ALT Alkaline Phosphatase Total Protein Albumin Globulin Albumin/Globulin Ratio 09/21/19 16:54 Specimen Type Sample Site pH pCO2 pO2 HCO3 Base Excess Oxyhemoglobin ABG O2 Sat (Calculated) ABG O2 Saturation ABG Carboxyhemoglobin ABG Methemoglobin Aris Test A-a O2 Difference Total Hemoglobin POC Ioniz Calcium Lactate Liter Flow Blood Gas Modality FiO2 % Sodium Potassium Chloride Carbon Dioxide Anion Gap BUN Creatinine Estimated GFR/1.73 m2 BUN/Creatinine Ratio Glucose POC Glucose 323 H Calculated Osmolality Calcium Total Bilirubin AST ALT Alkaline Phosphatase Total Protein Albumin Globulin Albumin/Globulin Ratio Assessment: Acute hypoxic respiratory failure likely secondary to pneumonia. Pulmonary embolism ruled out by CTPA on 09/18/19. Slowly improving. Tolerates NC 4L this morning. Pneumonia, likely institutional required. CTPA on 09/18/19 revealed worsened dense dependent consolidations, mainly involving the lower lobes bilaterally indicating pneumonia likely with a component of atelectasis. CXR today shows slightly worsened RLL atelectasis. Right perihilar pulmonary nodule, 1cm, noncalcified. Suspected CVA. MRI pending on Sunday per Dr. Perez. Seizures. Neurology on board. Rhabdomyolysis and renal failure, resolved. Fluctuating encephalopathy with RUE weakness and some visual field changes. Stable. Alkalemia with respiratory acidosis and metabolic alkalosis. Plan: Weaning oxygen as tolerated. Continue BiPAP at bedtime and as needed. Continue antibiotics: Cefepime and Vancomycin. On Day 3. Continue bronchodilators. Continue incentive spirometer. I hold Lasix this morning secondary to worsened metabolic alkalosis. Continue GI prophylaxis with Protonix and DVT prophylaxis with Lovenox. Evaluation time in minutes: 31 minutes (Eugenie Shannon)
[2019-09-21] MEDS: LIPITOR PO SCH (21:17)
[2019-09-21] MEDS: LOVENOX SUBQ SCH (21:18)
[2019-09-22] MEDS: VANCOMYCIN 1,500 MG in NS 250 ML IV SCH ×2 (00:31→17:52)
[2019-09-22] MEDS: LASIX IV SCH ×2 (00:34→12:25)
[2019-09-22] MEDS: NS IV SCH ×2 (02:04→15:52)
[2019-09-22] MEDS: CEREBYX IV SCH ×2 (02:04→15:52)
[2019-09-22] MEDS: KEPPRA 500 MG/NS 500 MG/100 ML IVPB IV SCH ×2 (04:40→17:51)
[2019-09-22 05:04] LABS: ALLEN TEST YES; BE 15.4 mmoll (-3.0-3.0); BLOOD TYPE ARTERIAL; HCO3-(ACT) 36.9 mmoll (20.0-26.0); METHB 1.2 % (0.0-1.5); O2(CT) 13.4 mL/dL (15.0-23.0); O2HB 93.2 % (95.0-99.0); PCO2(98.6) 45 mmHg (35-45); PO2(98.6) 68 mmHg (60-100); SAMPLE BLOOD; SAO2 95.9 % (95.0-100.0); THB 10.2 g/dL (11.5-17.4); pH(98.6) 7.55 (7.35-7.45)
[2019-09-22 05:11] LABS: MODALITY CANNULA
[2019-09-22] MEDS: MAXIPIME 2 GM/NS 2 GM/100 ML IVPB IV SCH ×2 (05:16→17:08)
[2019-09-22 06:01] LABS: BASO# 0.02 X1000 (0.0-0.2); BASO% 0.3 % (0.0-0.8); HEMATOCRIT 32.1 % (37.0-47.0); HEMOGLOBIN 9.7 g/dL (12.0-16.0); LYMPH# 1.02 X1000 (1.2-3.4); LYMPH% 14.2 % (20.5-51.1); MCH 26.5 PG (27-31); MCHC 30.2 g/dL (33-37); MCV 87.7 FL (81-99); MONO# 0.83 X1000 (0.11-0.59); MONO% 11.5 % (1.7-9.3); MPV 8.9 FL (7.4-10.4); PLT 556 X1000 (130-400); RBC 3.66 XMIL (4.2-5.4); RDW 15.5 % (11.5-14.5)
[2019-09-22 06:18] LABS: ESTIMATED GFR > 60
[2019-09-22] MEDS: SYNTHROID PO SCH (06:22)
[2019-09-22] MEDS: HUMALOG SUBQ SCH ×7 (06:22→21:06)
[2019-09-22 06:35] LABS: AGAP 13; ALBUMIN 3.1 g/dL (3.5-5.0); BUN 19 mg/dL (8-22); CALCIUM 9.4 mg/dL (8.8-10.2); CHLORIDE 86 mmol/L (98-107); COSMO 279; CREATININE 0.7 mg/dL (0.5-0.9); GLUCOSE 190 mg/dL (70-104); PHOSPHORUS 4.1 mg/dL (2.7-4.5); POTASSIUM 3.9 mmol/L (3.5-5.1); SODIUM 136 mmol/L (136-145); TCO2 37 mmol/L (25-35)
--- NOTE | 2019-09-22 07:30 | Diag Imaging Result Doc PS360 ---
CHEST-PORTABLE - 09/22/2019 INDICATION: respiratory failure COMPARISON: 09/21/2019 FINDINGS: Stable right PICC line in good position. Stable severely low lung volumes. There has been improvement in the patchy atelectasis in the lung bases. No new infiltrates. Heart size remains normal. IMPRESSION: Slight improvement from prior. Electronically signed by Donny Bustos 09/22/2019 7:27 AM
--- NOTE | 2019-09-22 07:31 | PROGRESS NOTE ---
DATE: 09/22/2019 SUBJECTIVE: The patient reports breathing better. Denies any fever, chills, or shortness of breath at rest. She reports that she has been working with physical therapy and feeling okay. OBJECTIVE: Vital Signs: Temperature 97.8 degrees, heart rate 87, respiratory rate 18, blood pressure 124/48, O2 saturation 96% on 5 L nasal cannula. General Examination: This is a chronically ill-looking, 64-year-old, female lying in bed, in no acute distress. Cardiovascular Examination: S1 and S2 heard. No murmurs, gallops, or rubs. Regular rate and rhythm. Respiratory Examination: Minimal crackles still noted in both pulmonary bases. Patient is not using any accessory muscles or having work of breathing. Abdomen: Soft, nontender to palpation. Bowel sounds present. No organomegaly. Extremities: Mild lower extremity edema. Peripheral pulses present in both legs. Genitourinary: Patient has a urine catheter in place. Neurological Examination: The patient is awake, alert. Speech is coherent. Laboratory Data: White cell count 7.20, hemoglobin 9.7, hematocrit 32.1, platelets 556,000. ABG that shows pH of 7.55, with pCO2 of 45, PO2 of 68. That was on nasal cannula at 5 L per minute. The BMP is unremarkable except for carbon dioxide 37. ASSESSMENT/PLAN: 1. Acute hypoxemic respiratory failure secondary to bilateral lower lobe pneumonia. The patient reports clinically feeling better. Denies any shortness of breath. The patient continues to be on vancomycin and cefepime. Arterial blood gas from today shows definitely much better gas exchange. We will continue with the same management. The chest x-ray from this morning is still unavailable at the time of dictation. We will continue with the current management. 2. Acute encephalopathy on presentation. There has been a suspicion for possible left hemispheric stroke so patient is going to have an MRI of the brain with and without contrast to confirm that finding. 3. Seizures during hospitalization. We will continue with Keppra and fosphenytoin as per neurology recommendation. 4. Uncontrolled diabetes mellitus type 2 with diabetic ketoacidosis on presentation. We will continue with Lantus 40 units daily and Accu-Cheks before meals and also at bedtime. 5. Hypothyroidism. We will continue home doses of levothyroxine. 6. Chronic gastroesophageal reflux disease. We will continue with famotidine. 7. Nutritional status. Patient is on a diabetic diet. 8. Disposition. At this point, we will continue to monitor this patient closely. 9. Physical therapy and occupational therapy working with this patient. cc: Clarence Joel MD
[2019-09-22 07:34] LABS: BANDS 4 % (0-1); LYMPHS 14 % (21-51); MONO 2 % (1-9); SEGS 80 % (42-75)
[2019-09-22] MEDS: PULMICORT INH SCH (07:57)
[2019-09-22] MEDS: DUONEB (A & A) INH PRN ×2 (07:57→16:23)
--- NOTE | 2019-09-22 09:26 | Diag Imaging Result Doc PS360 ---
MRI BRAIN W/O CONTRAST - 09/22/2019 INDICATION: Evaluate for left cerebral hemispheric CVA COMPARISON: None FINDINGS: There are a couple of tiny foci of cortical-based restricted diffusion of the superior-posterior left parietal lobe. These are consistent with tiny infarctions. There is extensive gliosis in the periventricular cerebral white matter and the eduar and midbrain consistent with chronic microvascular ischemia. No intracranial mass or hemorrhage. Midline structures are unremarkable. IMPRESSION: 1. Tiny recent infarctions of the left parietal lobe. 2. Advanced chronic microvascular ischemia. 3. This report was discussed with RT Yanira on 09/22/2019 at 9:23 AM and was readback. Electronically signed by Donny Bustos 09/22/2019 9:24 AM
--- NOTE | 2019-09-22 09:31 | Diag Imaging Result Doc PS360 ---
MRA BRAIN W/O CONTRAST - 09/22/2019 INDICATION: Evaluate for left cerebral hemispheric CVA TECHNIQUE: Noncontrast time of flight technique was used COMPARISON: None FINDINGS: The intracranial arteries are all normal. No aneurysm or stenosis. Anatomy is conventional. IMPRESSION: Negative exam. Electronically signed by Donny Bustos 09/22/2019 9:29 AM
[2019-09-22] MEDS: ASPIRIN PO SCH (09:44)
[2019-09-22] MEDS: LANTUS INSULIN SUBQ SCH (09:44)
[2019-09-22] MEDS: EFFEXOR PO SCH ×2 (09:44→21:14)
[2019-09-22] MEDS: MYCOSTATIN POWDER TOP SCH ×2 (09:45→21:14)
[2019-09-22] MEDS: SANTYL OINT TOP SCH (09:45)
[2019-09-22] MEDS: TYLENOL PO PRN (12:24)
--- NOTE | 2019-09-22 17:48 | NEUROLOGY PROGRESS NOTE ---
DATE: 09/22/2019 SUBJECTIVE: No major overnight events. There has not been clinically recognized seizure in several days. MRI today showed very small recent infarctions in the left parietal lobe within the superior-posterior region. There is also chronic microvascular ischemic changes, which are advanced. This includes areas of the periventricular white matter, the eduar and midbrain. OBJECTIVE: Vital signs: She is afebrile, blood pressure 127/48, pulse 93, respirations 17, 93% on 4 L nasal cannula. Neurological: Ms. Pizarro is supine in bed with head of bed elevated. She is awake and alert. She answers some orientation questions. She follows simple commands. There is evidence of expressive aphasia on exam with word substitution and hesitation. There may be some difficulty with understanding, but that his less obvious if it is present. She did not correctly repeat a phrase for me. She said "elevens" in place of glasses. She could not name parts of glasses. She could not name parts of the watch. Pupils were equal. I did not see definite reactivity to bright light. They are miotic about 2.5 to 3 mm both eyes. Gaze is conjugate. She has full lateral eye movements. She continues to have a right hemiparesis affecting the arm more than the leg. She performs rapid alternating movements better with the left hand than the right. IMAGING: MRI was personally reviewed showing what appears to be a very small recent infarctions in the superior-posterior left parietal lobe. There is also advanced chronic microvascular ischemic changes noted in the periventricular white matter, eduar and mid brain. MRA of the brain was unremarkable. Carotid Doppler study interpretation: No significant plaque disease identified. No significant stenosis present. LABORATORY DATA: Labs reviewed in the chart. Her last phenytoin level was on 09/19/2019 and at 9.10. Creatinine has normalized. ASSESSMENT AND PLAN: 1. Focal status epilepticus on admission with electrographic seizures arising from the left posterior temporal parietal head region. No seizures in recent days. Continue current Keppra and phenytoin doses. Seizure precautions were discussed with the patient's family as was the state law of [place] in terms of driving. 2. Apparent ischemic stroke within the superior-posterior left parietal head region on imaging. We will review the images with Radiology. If definite stroke, this may be the underlying etiology for #1 above. I agree with typical stroke workup as you are doing. I see aspirin has been increased and statin added. 3. Family mentioned concern for medication noncompliance and concern for possible memory loss over the last year or 2. I discussed the importance of medication compliance with the patient. She will likely need some type of rehab facility at discharge followed by some assistance subsequently. There is [place]. cc: Lesa Hendrix MD
--- NOTE | 2019-09-22 18:13 | PROVIDER PROGRESS NOTE ---
Progress Note Dr. Mehta Progress Note/Pulmonary and or critical care Subjective: The patient is lying in bed on NC 4L. She appears more alert and energetic. She was just transferred from ICU to [facility]. She still cant squeeze my hand with her right hand. Patients brother and [id number] are at the bedside. Input was appreciated from Dr. Pisano and other teams on the case. Objective: Vital Signs: 98.5 (no fever in last 24 hours), VT 88, RR 19, BP 126/54 and SaO2 95% on NC 4L. I/O: -2625 ml. Physical Examination: General: Obese. No acute distress noted. HEENT: Normocephalic. Trachea midline. Chest: Mild tachypnea. No increased work of breathing. Symmetrical excursion. Diminished breathing sounds bibasilarly with occasional bronchi bilaterally. CVS: S1 and S2 appreciated. Abdomen: Soft. Non-distended. Obese. Normoactive bowel sounds noted. Extremities: No edema. No cyanosis. No clubbing. Neuro: Sleeping. Labs and Radiology: Laboratory Results 09/21/19 09/22/19 09/22/19 20:04 04:54 04:57 WBC RBC Hgb Hct MCV MCH MCHC RDW Std Deviation Plt Count MPV Neut % (Auto) Lymph % (Auto) [place] % (Auto) Eos % (Auto) Baso % (Auto) Neut # (Auto) Lymph # (Auto) [place] # (Auto) Eos # (Auto) Baso # (Auto) Segmented Neutrophils Band Neutrophils Lymphocytes Monocytes Specimen Type ARTERIAL Sample Site R RADIAL pH 7.55 H pCO2 45 pO2 68 HCO3 36.9 H Base Excess 15.4 H Oxyhemoglobin 93.2 L ABG O2 Sat (Calculated) 13.4 L ABG O2 Saturation 95.9 ABG Carboxyhemoglobin 1.60 ABG Methemoglobin 1.2 Aris Test YES A-a O2 Difference 161.0 Total Hemoglobin 10.2 L POC Ioniz Calcium 1.13 Lactate 0.90 Liter Flow 5.0 Blood Gas Modality CANNULA FiO2 % 40.0 Sodium Potassium Chloride Carbon Dioxide Anion Gap BUN Creatinine Estimated GFR/1.73 m2 BUN/Creatinine Ratio Glucose POC Glucose 155 H D Calculated Osmolality Calcium Phosphorus Albumin 09/22/19 09/22/19 09/22/19 05:27 05:27 11:19 WBC 7.20 RBC 3.66 L Hgb 9.7 L Hct 32.1 L MCV 87.7 MCH 26.5 L MCHC 30.2 L RDW Std Deviation 15.5 H Plt Count 556 H MPV 8.9 Neut % (Auto) Not Reportable Lymph % (Auto) 14.2 L [place] % (Auto) 11.5 H Eos % (Auto) Not Reportable Baso % (Auto) 0.3 Neut # (Auto) Not Reportable Lymph # (Auto) 1.02 L [place] # (Auto) 0.83 H Eos # (Auto) Not Reportable Baso # (Auto) 0.02 Segmented Neutrophils 80 H Band Neutrophils 4 H Lymphocytes 14 L Monocytes 2 Specimen Type Sample Site pH pCO2 pO2 HCO3 Base Excess Oxyhemoglobin ABG O2 Sat (Calculated) ABG O2 Saturation ABG Carboxyhemoglobin ABG Methemoglobin Aris Test A-a O2 Difference Total Hemoglobin POC Ioniz Calcium Lactate Liter Flow Blood Gas Modality FiO2 % Sodium 136 Potassium 3.9 Chloride 86 L Carbon Dioxide 37 H Anion Gap 13 BUN 19 Creatinine 0.7 Estimated GFR/1.73 m2 > 60 BUN/Creatinine Ratio 27 Glucose 190 H POC Glucose 328 H D Calculated Osmolality 279 Calcium 9.4 Phosphorus 4.1 Albumin 3.1 L 09/22/19 16:17 WBC RBC Hgb Hct MCV MCH MCHC RDW Std Deviation Plt Count MPV Neut % (Auto) Lymph % (Auto) [place] % (Auto) Eos % (Auto) Baso % (Auto) Neut # (Auto) Lymph # (Auto) [place] # (Auto) Eos # (Auto) Baso # (Auto) Segmented Neutrophils Band Neutrophils Lymphocytes Monocytes Specimen Type Sample Site pH pCO2 pO2 HCO3 Base Excess Oxyhemoglobin ABG O2 Sat (Calculated) ABG O2 Saturation ABG Carboxyhemoglobin ABG Methemoglobin Aris Test A-a O2 Difference Total Hemoglobin POC Ioniz Calcium Lactate Liter Flow Blood Gas Modality FiO2 % Sodium Potassium Chloride Carbon Dioxide Anion Gap BUN Creatinine Estimated GFR/1.73 m2 BUN/Creatinine Ratio Glucose POC Glucose 145 H D Calculated Osmolality Calcium Phosphorus Albumin Assessment: Acute hypoxic respiratory failure likely secondary to pneumonia. Pulmonary embolism ruled out by CTPA on 09/18/19. Slowly improving. Tolerates NC 4L this morning. Pneumonia, likely institutional required. CTPA on 09/18/19 revealed worsened dense dependent consolidations, mainly involving the lower lobes bilaterally indicating pneumonia likely with a component of atelectasis. CXR today shows slight improved patchy atelectasis in the lung bases. Right perihilar pulmonary nodule, 1cm, noncalcified. CVA. MRI today shows tiny recent infarctions of the left parietal lobe. Seizures. Neurology on board. Rhabdomyolysis and renal failure, resolved. Fluctuating encephalopathy with RUE weakness and some visual field changes. Stable. Metabolic alkalosis. Plan: Weaning oxygen as tolerated. Continue BiPAP at bedtime and as needed. We titrated supplemental oxygen and BiPAP settings to patients needs per clinical protocol. We will keep closely monitoring patients response. Continue antibiotics: Cefepime and Vancomycin. On Day 5. Continue bronchodilators. Continue incentive spirometer. Continue GI prophylaxis with Protonix and DVT prophylaxis with Lovenox. Evaluation time in minutes: 32 minutes
[2019-09-22] MEDS: LOVENOX SUBQ SCH (21:14)
[2019-09-22] MEDS: LIPITOR PO SCH (21:14)
[2019-09-23] MEDS: LASIX IV SCH ×2 (00:40→12:22)
[2019-09-23] MEDS: NS IV SCH ×2 (01:56→14:22)
[2019-09-23] MEDS: CEREBYX IV SCH ×2 (01:56→14:22)
[2019-09-23] MEDS: KEPPRA 500 MG/NS 500 MG/100 ML IVPB IV SCH ×2 (04:36→16:53)
[2019-09-23] MEDS: MAXIPIME 2 GM/NS 2 GM/100 ML IVPB IV SCH ×2 (04:36→16:54)
[2019-09-23 04:48] LABS: ALLEN TEST YES; BE 12.5 mmoll (-3.0-3.0); BLOOD TYPE ARTERIAL; HCO3-(ACT) 34.7 mmoll (20.0-26.0); METHB 0.8 % (0.0-1.5); O2(CT) 14.7 mL/dL (15.0-23.0); O2HB 96.7 % (95.0-99.0); PCO2(98.6) 45 mmHg (35-45); PO2(98.6) 155 mmHg (60-100); SAMPLE BLOOD; SAO2 98.6 % (95.0-100.0); THB 10.6 g/dL (11.5-17.4); pH(98.6) 7.52 (7.35-7.45)
[2019-09-23 04:49] LABS: MODALITY CANNULA
[2019-09-23] MEDS: PULMICORT INH SCH ×3 (05:13→20:05)
[2019-09-23 05:47] LABS: BASO# 0.03 X1000 (0.0-0.2); BASO% 0.5 % (0.0-0.8); EOS# 0.15 X1000 (0.0-0.7); EOS% 2.4 % (0.0-10.0); HEMATOCRIT 32.9 % (37.0-47.0); HEMOGLOBIN 9.6 g/dL (12.0-16.0); IMM GRAN# 0.09 X1000 (0.0-0.04); IMM GRAN% 1.5 % (0.0-0.5); LYMPH# 0.91 X1000 (1.2-3.4); LYMPH% 14.7 % (20.5-51.1); MCH 25.6 PG (27-31); MCHC 29.2 g/dL (33-37); MCV 87.7 FL (81-99); MONO# 0.83 X1000 (0.11-0.59); MONO% 13.4 % (1.7-9.3); MPV 8.8 FL (7.4-10.4); NEUT# 4.17 X1000 (1.4-6.5); NEUT% 67.5 % (42.2-75.2); PLT 580 X1000 (130-400); RBC 3.75 XMIL (4.2-5.4); RDW 16.1 % (11.5-14.5); WBC 6.18 X1000 (4.8-10.8)
--- NOTE | 2019-09-23 06:30 | Diag Imaging Result Doc PS360 ---
EXAM: CHEST-PORTABLE HISTORY: respiratory failure TECHNIQUE: Single view COMPARISON: 09/22/2019 FINDINGS: Improved inspiratory effort although it is still suboptimal. No change in the right-sided PICC line. No cardiomegaly. No pleural effusions identified. Small infiltrate in the left lower lobe remains. IMPRESSION: Mild interval improvement Electronically signed by Daniel Montgomery 09/23/2019 6:27 AM
[2019-09-23] MEDS: HUMALOG SUBQ SCH ×7 (06:36→20:46)
[2019-09-23] MEDS: SYNTHROID PO SCH (06:37)
[2019-09-23 06:43] LABS: ESTIMATED GFR > 60
[2019-09-23 06:47] LABS: AGAP 16; ALBUMIN 3.1 g/dL (3.5-5.0); BUN 19 mg/dL (8-22); CALCIUM 9.1 mg/dL (8.8-10.2); CHLORIDE 89 mmol/L (98-107); COSMO 285; CREATININE 0.7 mg/dL (0.5-0.9); GLUCOSE 225 mg/dL (70-104); PHOSPHORUS 3.9 mg/dL (2.7-4.5); POTASSIUM 4.3 mmol/L (3.5-5.1); SODIUM 138 mmol/L (136-145); TCO2 33 mmol/L (25-35)
[2019-09-23] MEDS: DUONEB (A & A) INH PRN ×2 (07:57→15:24)
--- NOTE | 2019-09-23 08:56 | PROGRESS NOTE ---
DATE: 09/23/2019 SUBJECTIVE: Patient reports continues to breathe better. Denies any chest pain or difficulty in breathing. No other issues. No issues noted as per nursing staff. OBJECTIVE: Vital Signs: Temperature 97.6 degrees, heart rate 90, respiratory 14, blood pressure 128/56, O2 saturation 94% on 3 L nasal cannula. General Examination: This is a chronically ill- looking, 64-year-old female lying in bed in no acute distress. Cardiovascular exam: S1, S2 heard. No murmurs, gallops, or rubs. Regular rate and rhythm. Respiratory exam: Minimal rhonchi noted in both pulmonary bases. Patient is not using any accessory muscles or having work of breathing. Abdomen: Soft, nontender to palpation. Bowel sounds present. No organomegaly. Extremities: Mild lower extremity edema. Peripheral pulses present in both legs. Genitourinary: Patient has Duff catheter in place. Neurologic Exam: Patient is awake and alert. Speech is coherent. She has right hemiparesis affecting more the right upper extremity and than the lower. IMAGING: A MRI of the brain showed tiny recent infarctions in the left parietal lobe with advanced chronic microvascular ischemia. ASSESSMENT AND PLAN: 1. Acute hypoxemic respiratory failure secondary to bilateral lower lobe pneumonia. The patient reports clinically feeling better. Her oxygen needs are 3 L by nasal cannula, and the x-ray from yesterday showed improvement of the infiltrates. At this point, I am going to continue with current antibiotics, in this case, vancomycin and cefepime. The ABG shows better gas exchange, A little bit alkalotic with a pH of 7.52. We will continue to monitor. 2. Seizures during hospitalization. A MRI of the brain confirmed stroke in the area where apparently the seizures where arising from. That is what Neurology thinks. At this point, we will continue with current medications, in this case Keppra and phenytoin. We will continue to monitor this patient closely. Neurology is following this patient. 3. Left parietal stroke. As was mentioned above, Neurology is following. 4. Uncontrolled diabetes mellitus type 2 with diabetic ketoacidosis on presentation. Currently, patient is on Lantus 40 units subcutaneous daily. Blood sugar has been well-controlled in the last 2 days but this morning is 225. We will continue to monitor. 5. Hypothyroidism. Will continue with home doses of levothyroxine. 6. Chronic gastroesophageal reflux disease. We will continue with famotidine. 7. Nutritional status. Patient continues to be on diabetic diet. 8. Disposition. At this point, patient is definitely much more stable so will transfer her to a regular room today. Physical therapy and Occupational Therapy are working with this patient. The patient considering all this problem that she preferred to go to rehab. We will consult director social service. cc: Clarence Joel MD
[2019-09-23] MEDS ORDERED: TUMS PO ONE (09:00)
[2019-09-23] MEDS: LANTUS INSULIN SUBQ SCH (09:33)
[2019-09-23] MEDS: ASPIRIN PO SCH (09:33)
[2019-09-23] MEDS: EFFEXOR PO SCH ×2 (09:33→20:46)
[2019-09-23] MEDS: MYCOSTATIN POWDER TOP SCH ×2 (09:34→20:46)
[2019-09-23] MEDS: SANTYL OINT TOP SCH (09:34)
--- NOTE | 2019-09-23 18:44 | PROVIDER PROGRESS NOTE ---
Progress Note Dr. Mehta Progress Note/Pulmonary and or critical care Subjective: The patient is lying in bed on NC 3L. She states she is feeling better and she has no complaint at this time. There are multiple family members at the bedside. Objective: Vital Signs: 97.6 (no fever in last 24 hours), [place] 94, RR 18, BP 128/56 and SaO2 94% on NC 3L. Physical Examination: General: Obese. No acute distress noted. HEENT: Normocephalic. Trachea midline. Chest: Mild tachypnea. No increased work of breathing. Symmetrical excursion. Diminished breathing sounds bibasilarly. CVS: S1 and S2 appreciated. Abdomen: Soft. Non-distended. Obese. Normoactive bowel sounds noted. Extremities: No edema. No cyanosis. No clubbing. Neuro: A/O x3. Speech fluent. RUE weakness. Labs and Radiology: Laboratory Results 09/22/19 09/22/19 09/23/19 18:03 20:06 04:38 WBC RBC Hgb Hct MCV MCH MCHC RDW Std Deviation Plt Count MPV Immature Gran % (Auto) Neut % (Auto) Lymph % (Auto) [place] % (Auto) Eos % (Auto) Baso % (Auto) Immature Gran # (Auto) Neut # (Auto) Lymph # (Auto) [place] # (Auto) Eos # (Auto) Baso # (Auto) Specimen Type ARTERIAL Sample Site R RADIAL pH 7.52 H pCO2 45 pO2 155 H HCO3 34.7 H Base Excess 12.5 H Oxyhemoglobin 96.7 ABG O2 Sat (Calculated) 14.7 L ABG O2 Saturation 98.6 ABG Carboxyhemoglobin 1.10 ABG Methemoglobin 0.8 Aris Test YES A-a O2 Difference 17.0 Total Hemoglobin 10.6 L POC Ioniz Calcium Lactate 1.30 Liter Flow 3.0 Blood Gas Modality CANNULA FiO2 % 32.0 Sodium Potassium Chloride Carbon Dioxide Anion Gap BUN Creatinine Estimated GFR/1.73 m2 BUN/Creatinine Ratio Glucose POC Glucose 149 H Calculated Osmolality Calcium Phosphorus Albumin Random Vancomycin 25.20 09/23/19 09/23/19 09/23/19 04:41 05:15 05:15 WBC 6.18 RBC 3.75 L Hgb 9.6 L Hct 32.9 L MCV 87.7 MCH 25.6 L MCHC 29.2 L RDW Std Deviation 16.1 H Plt Count 580 H MPV 8.8 Immature Gran % (Auto) 1.5 H Neut % (Auto) 67.5 Lymph % (Auto) 14.7 L [place] % (Auto) 13.4 H Eos % (Auto) 2.4 Baso % (Auto) 0.5 Immature Gran # (Auto) 0.09 H Neut # (Auto) 4.17 Lymph # (Auto) 0.91 L [place] # (Auto) 0.83 H Eos # (Auto) 0.15 Baso # (Auto) 0.03 Specimen Type Sample Site pH pCO2 pO2 HCO3 Base Excess Oxyhemoglobin ABG O2 Sat (Calculated) ABG O2 Saturation ABG Carboxyhemoglobin ABG Methemoglobin Aris Test A-a O2 Difference Total Hemoglobin POC Ioniz Calcium 1.07 L Lactate Liter Flow Blood Gas Modality FiO2 % Sodium 138 Potassium 4.3 Chloride 89 L Carbon Dioxide 33 Anion Gap 16 BUN 19 Creatinine 0.7 Estimated GFR/1.73 m2 > 60 BUN/Creatinine Ratio 27 Glucose 225 H POC Glucose Calculated Osmolality 285 Calcium 9.1 Phosphorus 3.9 Albumin 3.1 L Random Vancomycin 24.60 09/23/19 09/23/19 09/23/19 06:28 11:24 16:33 WBC RBC Hgb Hct MCV MCH MCHC RDW Std Deviation Plt Count MPV Immature Gran % (Auto) Neut % (Auto) Lymph % (Auto) [place] % (Auto) Eos % (Auto) Baso % (Auto) Immature Gran # (Auto) Neut # (Auto) Lymph # (Auto) [place] # (Auto) Eos # (Auto) Baso # (Auto) Specimen Type Sample Site pH pCO2 pO2 HCO3 Base Excess Oxyhemoglobin ABG O2 Sat (Calculated) ABG O2 Saturation ABG Carboxyhemoglobin ABG Methemoglobin Aris Test A-a O2 Difference Total Hemoglobin POC Ioniz Calcium Lactate Liter Flow Blood Gas Modality FiO2 % Sodium Potassium Chloride Carbon Dioxide Anion Gap BUN Creatinine Estimated GFR/1.73 m2 BUN/Creatinine Ratio Glucose POC Glucose 218 H 265 H 194 H Calculated Osmolality Calcium Phosphorus Albumin Random Vancomycin 09/23/19 17:44 WBC RBC Hgb Hct MCV MCH MCHC RDW Std Deviation Plt Count MPV Immature Gran % (Auto) Neut % (Auto) Lymph % (Auto) [place] % (Auto) Eos % (Auto) Baso % (Auto) Immature Gran # (Auto) Neut # (Auto) Lymph # (Auto) [place] # (Auto) Eos # (Auto) Baso # (Auto) Specimen Type Sample Site pH pCO2 pO2 HCO3 Base Excess Oxyhemoglobin ABG O2 Sat (Calculated) ABG O2 Saturation ABG Carboxyhemoglobin ABG Methemoglobin Aris Test A-a O2 Difference Total Hemoglobin POC Ioniz Calcium Lactate Liter Flow Blood Gas Modality FiO2 % Sodium Potassium Chloride Carbon Dioxide Anion Gap BUN Creatinine Estimated GFR/1.73 m2 BUN/Creatinine Ratio Glucose POC Glucose Calculated Osmolality Calcium Phosphorus Albumin Random Vancomycin 18.90 Assessment: Acute hypoxic respiratory failure likely secondary to pneumonia. Pulmonary embolism ruled out by CTPA on 09/18/19. Slowly improving. Tolerates NC 3L this morning. Pneumonia, likely institutional required. CTPA on 09/18/19 revealed worsened dense dependent consolidations, mainly involving the lower lobes bilaterally indicating pneumonia likely with a component of atelectasis. CXR today shows mild interval improvement. Right perihilar pulmonary nodule, 1cm, noncalcified. CVA. MRI today shows tiny recent infarctions of the left parietal lobe. Seizures. Neurology on board. Rhabdomyolysis and renal failure, resolved. Fluctuating encephalopathy with RUE weakness and some visual field changes. Stable. Metabolic alkalosis. Plan: Weaning oxygen as tolerated. Continue BiPAP at bedtime and as needed. We titrated supplemental oxygen and BiPAP settings to patients needs per clinical protocol. We will keep closely monitoring patients response. Continue antibiotics: Cefepime and Vancomycin. On Day 6. Continue bronchodilators. Encourage incentive spirometer use routinely. Continue GI prophylaxis with Protonix and DVT prophylaxis with Lovenox. Transfer to the medical floor. Evaluation time in minutes: 31 minutes
[2019-09-23] MEDS: LIPITOR PO SCH (20:46)
[2019-09-23] MEDS: LOVENOX SUBQ SCH (20:46)
[2019-09-23] MEDS: VANCOMYCIN 1,500 MG in NS 250 ML IV SCH (20:46)
--- NOTE | 2019-09-23 20:53 | EEG REPORT ---
DATE: 09/15/2019 REFERRING: Dr. Law. DIE CAST TECHNICIAN: Oxana Valiente.. BACKGROUND INFORMATION/TECHNIQUE: This is a digitally recorded portable routine EEG with video. HISTORY: A 64-year-old female with altered mental status and status epilepticus on admission. EEG is ordered to compare to recent study and assess for ongoing seizure activity. EEG FINDINGS: A posterior dominant alpha rhythm is not seen. The background at maximal alertness consists of theta delta slowing with intermixed faster frequencies. There is nearly continuous left hemispheric slowing. Early in the record there is 1 electrographic seizure recorded again that begins with ictal epileptiform discharges that emanate from the left posterior temporoparietal head region. On video clinically the patient stirs a bit, but there is no rhythmic movement of the right hand or otherwise that I could visualize. There are no further seizures during the recording. There are no further interictal epileptiform discharges observed during the remaining recording. Hyperventilation was not performed. Photic stimulation does not alter the record. There are background changes suggestive of sleep or slow-wave sleep. The EKG demonstrates regular RR intervals. IMPRESSION AND CLINICAL CORRELATION: Abnormal routine EEG due to: 1. One electrographic focal seizure as detailed above. 2. Left hemispheric slowing. A focal structural lesion should be considered. 3. Moderate generalized slowing indicative of a moderate nonspecific encephalopathy. 4. The overall background of the study is improved compared to prior studies; however, there was one electrographic seizure identified on this study. Clinical correlation is recommended. cc: MD Johny Mcdonald III, MD MTDD
[2019-09-24] MEDS: CEREBYX IV SCH ×2 (01:49→14:08)
[2019-09-24] MEDS: LASIX IV SCH ×3 (01:49→23:26)
[2019-09-24] MEDS: NS IV SCH ×2 (01:49→14:08)
[2019-09-24 05:40] LABS: ALLEN TEST YES; BE 10.3 mmoll (-3.0-3.0); BLOOD TYPE ARTERIAL; METHB 0.5 % (0.0-1.5); O2(CT) 13.8 mL/dL (15.0-23.0); O2HB 97.4 % (95.0-99.0); PCO2(98.6) 36 mmHg (35-45); PO2(98.6) 140 mmHg (60-100); SAMPLE BLOOD; SAO2 99.6 % (95.0-100.0); THB 9.9 g/dL (11.5-17.4)
[2019-09-24 05:44] LABS: MODALITY CANNULA; pH(98.6) 7.57 (7.35-7.45)
[2019-09-24] MEDS: KEPPRA 500 MG/NS 500 MG/100 ML IVPB IV SCH ×2 (05:50→16:32)
[2019-09-24] MEDS: MAXIPIME 2 GM/NS 2 GM/100 ML IVPB IV SCH ×2 (06:35→17:15)
[2019-09-24] MEDS: HUMALOG SUBQ SCH ×7 (06:45→23:18)
[2019-09-24] MEDS: SYNTHROID PO SCH (06:45)
--- NOTE | 2019-09-24 07:17 | Diag Imaging Result Doc PS360 ---
EXAM: CHEST-PORTABLE HISTORY: respiratory failure TECHNIQUE: Single view COMPARISON: 09/23/2019 FINDINGS: Poor inspiratory effort. No cardiomegaly. Trace pleural fluid. Small basilar infiltrates. No change in the right-sided PICC line. IMPRESSION: Stable chest Electronically signed by Daniel Montgomery 09/24/2019 7:15 AM
[2019-09-24 07:50] LABS: BASO# 0.03 X1000 (0.0-0.2); BASO% 0.6 % (0.0-0.8); EOS# 0.09 X1000 (0.0-0.7); EOS% 1.7 % (0.0-10.0); HEMATOCRIT 31.9 % (37.0-47.0); HEMOGLOBIN 9.4 g/dL (12.0-16.0); IMM GRAN# 0.05 X1000 (0.0-0.04); IMM GRAN% 0.9 % (0.0-0.5); LYMPH# 1.05 X1000 (1.2-3.4); LYMPH% 19.9 % (20.5-51.1); MCH 25.8 PG (27-31); MCHC 29.5 g/dL (33-37); MCV 87.6 FL (81-99); MONO# 0.54 X1000 (0.11-0.59); MONO% 10.2 % (1.7-9.3); MPV 8.6 FL (7.4-10.4); NEUT# 3.51 X1000 (1.4-6.5); NEUT% 66.7 % (42.2-75.2); PLT 573 X1000 (130-400); RBC 3.64 XMIL (4.2-5.4); RDW 15.9 % (11.5-14.5); WBC 5.27 X1000 (4.8-10.8)
[2019-09-24] MEDS: PULMICORT INH SCH ×2 (08:24→19:40)
[2019-09-24 08:35] LABS: AGAP 14; BUN 20 mg/dL (8-22); CHLORIDE 91 mmol/L (98-107); COSMO 279; CREATININE 0.7 mg/dL (0.5-0.9); ESTIMATED GFR > 60; GLUCOSE 180 mg/dL (70-104); PHOSPHORUS 3.4 mg/dL (2.7-4.5); POTASSIUM 3.4 mmol/L (3.5-5.1); SODIUM 136 mmol/L (136-145); TCO2 31 mmol/L (25-35)
[2019-09-24] MEDS: EFFEXOR PO SCH ×2 (08:42→22:58)
[2019-09-24] MEDS: ASPIRIN PO SCH (08:42)
[2019-09-24] MEDS: LANTUS INSULIN SUBQ SCH (08:43)
--- NOTE | 2019-09-24 09:45 | PROGRESS NOTE ---
DATE: 09/24/2019 SUBJECTIVE: The patient reports breathing better. Denies any fever or chills or chest pain. OBJECTIVE: Vital Signs: Temperature 99 degrees, heart rate 96, respiratory rate 18, blood pressure 120/48, and O2 saturation 95% on 3 liters nasal cannula. General: On examination, this is a chronically ill-looking 64-year-old female lying in bed, in no acute distress. Cardiovascular: S1, and S2 heard. No murmurs, gallops, or rubs. Regular rate and rhythm. Respiratory: Minimal rhonchi noted in both pulmonary bases. Patient not using any accessory muscles or having work of breathing. Abdomen: Soft, nontender to palpation. Bowel sounds present. No organomegaly. Extremities: Mild lower extremity edema. Peripheral pulses present in both legs. Genitourinary: The patient has a Duff catheter in place. Neurological: Patient is awake, alert. Speech is coherent. The patient has right hemiparesis affecting more the right upper extremity than the lower. LABORATORY DATA: White cell count 5.27, hemoglobin 9.4, hematocrit 31.9, platelets 573,000. ABG that shows pH 7.57 with pCO2 of 36, PO2 of 140, and that was on 20% oxygen by nasal cannula. BMP reveals potassium 3.4. Normal renal function. Glucose 180. ASSESSMENT AND PLAN: 1. Acute hypoxemic respiratory failure secondary to bilateral lower lobe pneumonia. Clinically, this patient is getting better. Continues to require 2 to 3 liters of oxygen by nasal cannula. X-ray from yesterday shows small bibasilar infiltrates. So at this point, we will continue with current antibiotic management, in this case vancomycin and cefepime. The ABG from today shows respiratory alkalosis. She was hyperventilating. We will continue to monitor this patient closely. 2. Seizures during hospitalization. The seizures are coming from the area where MRI confirmed this patient has had a stroke. That is most likely the reason why this patient had seizures. In any case, the patient has been placed on Keppra and phenytoin. Dr. Law from Neurology is following this patient. 3. Left parietal brain infarct, clinically stable. Neurology following. 4. Uncontrolled diabetes mellitus type 2. Patient is on Lantus 40 units daily. We will continue to monitor. 5. Hypothyroidism. Will continue home doses of levothyroxine. 6. Chronic gastroesophageal reflux disease. We will continue with famotidine. 7. Nutritional status. Patient is on diabetic diet. 8. Disposition. At this point, patient is going to stay here in the hospital for a rehab bed. cc: Clarence Joel MD
[2019-09-24] MEDS: MYCOSTATIN POWDER TOP SCH ×2 (10:02→23:18)
[2019-09-24] MEDS: SANTYL OINT TOP SCH (10:02)
--- NOTE | 2019-09-24 10:31 | NEUROLOGY PROGRESS NOTE ---
DATE: 09/24/2019 Ms. Pizarro has made significant progress since I last saw her. Dr. Hendrix saw her for neurology earlier this week. MRI showed small recent ischemic infarction in the left hemisphere. On exam this morning, she is awake, alert, bright, attentive, spontaneous with conversation. She answered questions appropriately and correctly. She did well with bedside testing of naming, right/left distinction, digit distinction. Speech is a little bit dysarthric but easily understood. I did not test her cognitive function. She appears to have full visual prince now to confrontational finger counting. Right hemiparesis is much improved. She is consistently able to bring her right fist to her nose. She can flex and extend the right fingers slightly. Right nasolabial fold is less prominent than the left. IMPRESSION: Recent small left hemisphere infarction, initial persistent left hemisphere and generalized seizures have resolved, stable and improving right hemiparesis. I do not have any new suggestion. I would continue current seizure medicines at the current doses. We might recheck phenytoin level later. Her levetiracetam dose and creatinine function suggest levetiracetam level should not be an issue. Thanks for asking neurology to see Ms. Pizarro. cc: MD CARL Amaro III
--- NOTE | 2019-09-24 18:43 | PROVIDER PROGRESS NOTE ---
Progress Note Dr. Mehta Progress Note/Pulmonary and or critical care Subjective: The patient is lying in bed on NC 2L. She had physical therapy at an earlier time. Now she is squeezing her right hand, which patient was unable to do 2 to 3 days ago secondary to CVA. She states she is ready for rehab. Patients son at the bedside. Objective: Vital Signs: 99.0 (no fever in last 24 hours), [place] 96, RR 18, BP 120/48 and SaO2 95% on NC 2L. Physical Examination: General: Obese. No acute distress noted. HEENT: Normocephalic. Trachea midline. Mucosa pink and moist. PERRL. Chest: Even and unlabored. No increased work of breathing. Symmetrical excursion. Diminished breathing sounds bilaterally. CVS: S1 and S2 appreciated. Abdomen: Soft. Non-distended. Obese. Normoactive bowel sounds noted. Extremities: No edema. No cyanosis. No clubbing. Neuro: A/O x3. Speech fluent. Follow commands. RUE weakness noted. Labs and Radiology: Laboratory Results 09/24/19 09/24/19 09/24/19 05:30 05:34 06:14 WBC RBC Hgb Hct MCV MCH MCHC RDW Std Deviation Plt Count MPV Immature Gran % (Auto) Neut % (Auto) Lymph % (Auto) [place] % (Auto) Eos % (Auto) Baso % (Auto) Immature Gran # (Auto) Neut # (Auto) Lymph # (Auto) [place] # (Auto) Eos # (Auto) Baso # (Auto) Specimen Type ARTERIAL Sample Site R RADIAL pH 7.57 H* pCO2 36 pO2 140 H HCO3 33.0 H Base Excess 10.3 H Oxyhemoglobin 97.4 ABG O2 Sat (Calculated) 13.8 L ABG O2 Saturation 99.6 ABG Carboxyhemoglobin 1.70 ABG Methemoglobin 0.5 Aris Test YES A-a O2 Difference 15.0 Total Hemoglobin 9.9 L POC Ioniz Calcium 1.05 L Lactate 1.50 Blood Gas Modality CANNULA FiO2 % 28.0 Sodium Potassium Chloride Carbon Dioxide Anion Gap BUN Creatinine Estimated GFR/1.73 m2 BUN/Creatinine Ratio Glucose POC Glucose 192 H Calculated Osmolality Calcium Phosphorus Albumin 09/24/19 09/24/19 09/24/19 07:25 07:25 10:19 WBC 5.27 RBC 3.64 L Hgb 9.4 L Hct 31.9 L MCV 87.6 MCH 25.8 L MCHC 29.5 L RDW Std Deviation 15.9 H Plt Count 573 H MPV 8.6 Immature Gran % (Auto) 0.9 H Neut % (Auto) 66.7 Lymph % (Auto) 19.9 L [place] % (Auto) 10.2 H Eos % (Auto) 1.7 Baso % (Auto) 0.6 Immature Gran # (Auto) 0.05 H Neut # (Auto) 3.51 Lymph # (Auto) 1.05 L [place] # (Auto) 0.54 Eos # (Auto) 0.09 Baso # (Auto) 0.03 Specimen Type Sample Site pH pCO2 pO2 HCO3 Base Excess Oxyhemoglobin ABG O2 Sat (Calculated) ABG O2 Saturation ABG Carboxyhemoglobin ABG Methemoglobin Aris Test A-a O2 Difference Total Hemoglobin POC Ioniz Calcium Lactate Blood Gas Modality FiO2 % Sodium 136 Potassium 3.4 L D Chloride 91 L Carbon Dioxide 31 Anion Gap 14 BUN 20 Creatinine 0.7 Estimated GFR/1.73 m2 > 60 BUN/Creatinine Ratio 29 Glucose 180 H POC Glucose 226 H Calculated Osmolality 279 Calcium 9.0 Phosphorus 3.4 Albumin 3.0 L 09/24/19 15:41 WBC RBC Hgb Hct MCV MCH MCHC RDW Std Deviation Plt Count MPV Immature Gran % (Auto) Neut % (Auto) Lymph % (Auto) [place] % (Auto) Eos % (Auto) Baso % (Auto) Immature Gran # (Auto) Neut # (Auto) Lymph # (Auto) [place] # (Auto) Eos # (Auto) Baso # (Auto) Specimen Type Sample Site pH pCO2 pO2 HCO3 Base Excess Oxyhemoglobin ABG O2 Sat (Calculated) ABG O2 Saturation ABG Carboxyhemoglobin ABG Methemoglobin Aris Test A-a O2 Difference Total Hemoglobin POC Ioniz Calcium Lactate Blood Gas Modality FiO2 % Sodium Potassium Chloride Carbon Dioxide Anion Gap BUN Creatinine Estimated GFR/1.73 m2 BUN/Creatinine Ratio Glucose POC Glucose 140 H Calculated Osmolality Calcium Phosphorus Albumin Assessment: Acute hypoxic respiratory failure likely secondary to pneumonia. Pulmonary embolism ruled out by CTPA on 09/18/19. Slowly improving. Tolerates NC 2L this morning. Pneumonia, likely institutional required. CTPA on 09/18/19 revealed worsened dense dependent consolidations, mainly involving the lower lobes bilaterally indicating pneumonia likely with a component of atelectasis. CXR today shows stable chest. Right perihilar pulmonary nodule, 1cm, noncalcified. CVA. MRI on 09/22/19 shows tiny recent infarctions of the left parietal lobe. Seizures. Neurology on board. Rhabdomyolysis and renal failure, resolved. Fluctuating encephalopathy with RUE weakness and some visual field changes. Resolved. Plan: Weaning oxygen as tolerated. Continue BiPAP at bedtime and as needed. We titrated supplemental oxygen and BiPAP settings to patients needs per clinical protocol. We will keep closely monitoring patients response. Continue antibiotics: Cefepime and Vancomycin. On Day 7. Continue bronchodilators. Encourage incentive spirometer use routinely. Continue DVT prophylaxis with Lovenox.
[2019-09-24] MEDS: VANCOMYCIN 1,500 MG in NS 250 ML IV SCH (22:58)
[2019-09-24] MEDS: LIPITOR PO SCH (22:58)
[2019-09-24] MEDS: LOVENOX SUBQ SCH (22:58)
[2019-09-25] MEDS: NS IV SCH (03:56)
[2019-09-25] MEDS: CEREBYX IV SCH (03:56)
[2019-09-25 03:58] LABS: ALLEN TEST YES; BE 9.4 mmoll (-3.0-3.0); BLOOD TYPE ARTERIAL; HCO3-(ACT) 32.1 mmoll (20.0-26.0); METHB 1.5 % (0.0-1.5); MODALITY CANNULA; O2(CT) 12.6 mL/dL (15.0-23.0); PCO2(98.6) 43 mmHg (35-45); PO2(98.6) 55 mmHg (60-100); SAMPLE BLOOD; SAO2 92.9 % (95.0-100.0); THB 9.9 g/dL (11.5-17.4)
[2019-09-25] MEDS: KEPPRA 500 MG/NS 500 MG/100 ML IVPB IV SCH (04:03)
[2019-09-25] MEDS: MAXIPIME 2 GM/NS 2 GM/100 ML IVPB IV SCH ×2 (04:03→16:58)
[2019-09-25] MEDS: SYNTHROID PO SCH (06:37)
[2019-09-25] MEDS: HUMALOG SUBQ SCH ×7 (06:37→21:11)
--- NOTE | 2019-09-25 07:21 | Diag Imaging Result Doc PS360 ---
EXAM: CHEST-PORTABLE 09/25/2019 HISTORY: respiratory failure TECHNIQUE: AP portable at [id number] COMMENT: There is a PICC line on the right with its tip in the superior vena cava. There are platelike opacities in both lung bases. The heart size and pulmonary vascularity are within normal limits. The inspiration is slightly better than on 09/24/2019. IMPRESSION: Bilateral subsegmental atelectasis. Electronically signed by Nishant Hernandez 09/25/2019 7:19 AM
[2019-09-25 08:08] LABS: BASO# 0.02 X1000 (0.0-0.2); BASO% 0.3 % (0.0-0.8); EOS# 0.16 X1000 (0.0-0.7); EOS% 2.8 % (0.0-10.0); HEMOGLOBIN 9.5 g/dL (12.0-16.0); IMM GRAN# 0.07 X1000 (0.0-0.04); IMM GRAN% 1.2 % (0.0-0.5); LYMPH% 20.8 % (20.5-51.1); MCHC 29.7 g/dL (33-37); MCV 87.7 FL (81-99); MONO# 0.63 X1000 (0.11-0.59); MONO% 10.9 % (1.7-9.3); MPV 8.7 FL (7.4-10.4); NEUT# 3.68 X1000 (1.4-6.5); PLT 560 X1000 (130-400); RBC 3.65 XMIL (4.2-5.4); RDW 15.9 % (11.5-14.5); WBC 5.76 X1000 (4.8-10.8)
[2019-09-25 08:24] LABS: ESTIMATED GFR > 60
[2019-09-25 08:31] LABS: AGAP 11; ALBUMIN 3.2 g/dL (3.5-5.0); BUN 19 mg/dL (8-22); CALCIUM 8.8 mg/dL (8.8-10.2); CHLORIDE 88 mmol/L (98-107); COSMO 270; CREATININE 0.8 mg/dL (0.5-0.9); GLUCOSE 198 mg/dL (70-104); PHOSPHORUS 3.1 mg/dL (2.7-4.5); POTASSIUM 3.5 mmol/L (3.5-5.1); SODIUM 131 mmol/L (136-145); TCO2 32 mmol/L (25-35)
[2019-09-25] MEDS: PULMICORT INH SCH ×2 (08:35→19:52)
[2019-09-25] MEDS: MYCOSTATIN POWDER TOP SCH ×2 (09:04→21:17)
[2019-09-25] MEDS: LANTUS INSULIN SUBQ SCH (09:04)
[2019-09-25] MEDS: ASPIRIN PO SCH (09:04)
[2019-09-25] MEDS: EFFEXOR PO SCH ×2 (09:04→20:46)
[2019-09-25] MEDS: LASIX IV SCH (12:55)
--- NOTE | 2019-09-25 13:10 | NEUROLOGY PROGRESS NOTE ---
DATE: 09/25/2019 Ms. Pizarro is awake, alert, attentive, appropriate, bright, cheerful, and spontaneous today. She moved her right arm a little bit better than yesterday. She has full visual prince tested briefly by confrontational finger counting. I did not detect any language impairment during conversation with her this morning. No recent seizures. She continues phenytoin fosphenytoin 400 mg q.12 hours and levetiracetam 500 mg q.12 hours. She has been swallowing other medicines consistently. I will change the antiseizure medicine to oral route. No other suggestions today. Thanks for asking Neurology to see Ms. Pizarro. cc: MD CARL Amaro III
--- NOTE | 2019-09-25 17:23 | PROGRESS NOTE ---
DATE: 09/25/2019 INTERVAL HISTORY: No further seizures. Respiratory status fairly stable. On fairly minimal oxygen at this point. No new complaints. REVIEW OF SYSTEMS: Twelve point review of systems negative except as per interval history. LABS: WBC 5.7, hemoglobin 9.5, hematocrit 32.0, platelets 560,000. ABG with pH 7.5, pCO2 43, PO2 55 on 1 L by nasal cannula. Sodium 131, potassium 3.5, BUN 18, creatinine 0.8, glucose 198, Vitals: T-max 98.4, pulse 89, respirations 19, blood pressure 140/60, O2 saturation 95% on 1.5 L by nasal cannula. PHYSICAL EXAMINATION: General: No acute distress. Vitals: As above. HEENT: Normocephalic, atraumatic. Moist mucous membranes. Cardiovascular: Regular rate and rhythm. No murmurs noted. Pulmonary: Essentially clear to auscultation bilaterally at this point. Abdomen: Soft, nontender, nondistended. Bowel sounds positive. Extremities: Peripheral pulses intact. Trace lower extremity edema bilaterally. Neurologic: Stable right-sided weakness. No new focal deficits. Psychiatric: Normal mood and affect. Awake, alert, oriented x3. ASSESSMENT AND PLAN: 1. Acute hypoxic respiratory failure, pneumonia. Much improved currently. O2 sats still a little on the low side but on quite minimal oxygen. If she continues to improve then hopefully we will be able to transition to oral antibiotics and discharge to rehab rather tomorrow. 2. Seizures. The patient with a recent left parietal infarct leading to seizures. On antiepileptics as per Neurology and no further seizures since. Continue to monitor. 3. Left parietal stroke issues as above, stable currently. 4. Diabetes. Control acceptable currently. Monitor. 5. Hypothyroidism. Continue home Synthroid. 6. Gastroesophageal reflux disease. We will restart home omeprazole. 7. Disposition. If the patient's oxygenation continues to improve, then hopefully out to rehab tomorrow if bed available. [facility]ALS[facility]
--- NOTE | 2019-09-25 17:33 | PROVIDER PROGRESS NOTE ---
Progress Note Dr. Mehta Progress Note/Pulmonary and or critical care Subjective: The patient is lying in bed on NC 2L. She had physical therapy on at this time. Her right hand is definitely stronger than before. She reports no cough or SOB with activities. Objective: Vital Signs: 98.1 (no fever in last 24 hours), [place] 83, RR 19, BP 132/53 and SaO2 100% on NC 2L. Physical Examination: General: Obese. No acute distress noted. HEENT: Normocephalic. Trachea midline. Mucosa pink and moist. PERRL. Chest: Even and unlabored. No increased work of breathing. Symmetrical excursion. Diminished breathing sounds bilaterally. CVS: S1 and S2 appreciated. Abdomen: Soft. Non-distended. Obese. Normoactive bowel sounds noted. Extremities: No edema. No cyanosis. No clubbing. Neuro: A/O x3. Speech fluent. Follow commands. RUE weakness noted. Labs and Radiology: Laboratory Results 09/24/19 09/25/19 09/25/19 19:44 03:47 03:50 WBC RBC Hgb Hct MCV MCH MCHC RDW Std Deviation Plt Count MPV Immature Gran % (Auto) Neut % (Auto) Lymph % (Auto) [place] % (Auto) Eos % (Auto) Baso % (Auto) Immature Gran # (Auto) Neut # (Auto) Lymph # (Auto) [place] # (Auto) Eos # (Auto) Baso # (Auto) Specimen Type ARTERIAL Sample Site L RADIAL pH 7.50 H pCO2 43 pO2 55 L HCO3 32.1 H Base Excess 9.4 H Oxyhemoglobin 90.0 L ABG O2 Sat (Calculated) 12.6 L ABG O2 Saturation 92.9 L ABG Carboxyhemoglobin 1.60 ABG Methemoglobin 1.5 Aris Test YES A-a O2 Difference 62.0 Total Hemoglobin 9.9 L POC Ioniz Calcium 1.12 Lactate 1.10 Liter Flow 1.0 Blood Gas Modality CANNULA FiO2 % 24.0 Sodium Potassium Chloride Carbon Dioxide Anion Gap BUN Creatinine Estimated GFR/1.73 m2 BUN/Creatinine Ratio Glucose POC Glucose 210 H Calculated Osmolality Calcium Phosphorus Albumin 09/25/19 09/25/19 09/25/19 06:01 07:38 07:38 WBC 5.76 RBC 3.65 L Hgb 9.5 L Hct 32.0 L MCV 87.7 MCH 26.0 L MCHC 29.7 L RDW Std Deviation 15.9 H Plt Count 560 H MPV 8.7 Immature Gran % (Auto) 1.2 H Neut % (Auto) 64.0 Lymph % (Auto) 20.8 [place] % (Auto) 10.9 H Eos % (Auto) 2.8 Baso % (Auto) 0.3 Immature Gran # (Auto) 0.07 H Neut # (Auto) 3.68 Lymph # (Auto) 1.20 [place] # (Auto) 0.63 H Eos # (Auto) 0.16 Baso # (Auto) 0.02 Specimen Type Sample Site pH pCO2 pO2 HCO3 Base Excess Oxyhemoglobin ABG O2 Sat (Calculated) ABG O2 Saturation ABG Carboxyhemoglobin ABG Methemoglobin Aris Test A-a O2 Difference Total Hemoglobin POC Ioniz Calcium Lactate Liter Flow Blood Gas Modality FiO2 % Sodium 131 L Potassium 3.5 Chloride 88 L Carbon Dioxide 32 Anion Gap 11 BUN 19 Creatinine 0.8 Estimated GFR/1.73 m2 > 60 BUN/Creatinine Ratio 24 Glucose 198 H POC Glucose 202 H Calculated Osmolality 270 Calcium 8.8 Phosphorus 3.1 Albumin 3.2 L Assessment: Acute hypoxic respiratory failure likely secondary to pneumonia. Pulmonary embolism ruled out by CTPA on 09/18/19. Slowly improving. Tolerates NC 2L this morning. Pneumonia, likely institutional required. CTPA on 09/18/19 revealed worsened dense dependent consolidations, mainly involving the lower lobes bilaterally indicating pneumonia likely with a component of atelectasis. CXR today shows bilateral subsegmental atelectasis. Right perihilar pulmonary nodule, 1cm, noncalcified. CVA. MRI on 09/22/19 shows tiny recent infarctions of the left parietal lobe. Seizures. Neurology on board. Rhabdomyolysis and renal failure, resolved. Fluctuating encephalopathy with RUE weakness and some visual field changes. Resolved. Plan: Weaning oxygen as tolerated. Continue antibiotics: Cefepime and Vancomycin. On Day 8. Continue bronchodilators. Encourage incentive spirometer use routinely with deep breathing and coughing. Continue DVT prophylaxis with Lovenox.
[2019-09-25 19:06] LABS: URINE SOURCE CATH
[2019-09-25 19:10] LABS: BILIRUBIN URINE NEGATIVE (NEGATIVE); BLOOD URINE MODERATE (NEGATIVE); COLOR YELLOW; GLUCOSE URINE NEGATIVE (NEGATIVE); KETONE URINE NEGATIVE (NEGATIVE); LEUKOCYTES URINE MODERATE (NEGATIVE); NITRITE URINE NEGATIVE (NEGATIVE); PROTEIN URINE 50 mg/dL (NEGATIVE); TURBIDITY URINE HAZY (CLEAR); UROBILINOGEN URINE NORMAL (NORMAL)
[2019-09-25 19:14] LABS: UR EPITHELIAL CELLS <10 /HPF (<10); URINE BACTERIA NEGATIVE /HPF; URINE WBC 20-40 /HPF (<10)
[2019-09-25 19:26] LABS: URINE CASTS GRANULAR PRESENT; URINE CRYSTALS NONE SEEN; URINE SMALL ROUND CELLS RENAL PRESENT; URINE YEAST PRESENT
[2019-09-25] MEDS: DILANTIN PO SCH (20:44)
[2019-09-25] MEDS: PRILOSEC PO SCH (20:45)
[2019-09-25] MEDS: LIPITOR PO SCH (20:46)
[2019-09-25] MEDS: KEPPRA PO SCH (20:46)
[2019-09-25] MEDS: LOVENOX SUBQ SCH (20:47)
[2019-09-26] MEDS: LASIX IV SCH (01:20)
[2019-09-26] MEDS: MAXIPIME 2 GM/NS 2 GM/100 ML IVPB IV SCH ×2 (03:19→04:06)
[2019-09-26] MEDS: VANCOMYCIN 1,500 MG in NS 250 ML IV SCH (03:19)
[2019-09-26] MEDS: SYNTHROID PO SCH (06:24)
[2019-09-26] MEDS: HUMALOG SUBQ SCH ×4 (06:24→11:57)
--- NOTE | 2019-09-26 07:48 | Diag Imaging Result Doc PS360 ---
CHEST-PORTABLE - 09/26/2019 INDICATION: respiratory failure COMPARISON: 09/25/2019 FINDINGS: Stable right PICC line in good position. Stable severely low lung volumes. No obvious infiltrates. Heart size is normal. IMPRESSION: Low lung volumes but no acute disease. Electronically signed by Donny Bustos 09/26/2019 7:46 AM
[2019-09-26] MEDS: DUONEB (A & A) INH PRN (08:41)
[2019-09-26] MEDS: PULMICORT INH SCH (08:41)
[2019-09-26 08:49] LABS: AGAP 15; ALBUMIN 2.9 g/dL (3.5-5.0); BUN 20 mg/dL (8-22); CHLORIDE 94 mmol/L (98-107); COSMO 277; CREATININE 0.8 mg/dL (0.5-0.9); ESTIMATED GFR > 60; GLUCOSE 168 mg/dL (70-104); PHOSPHORUS 3.3 mg/dL (2.7-4.5); POTASSIUM 4.1 mmol/L (3.5-5.1); SODIUM 135 mmol/L (136-145); TCO2 26 mmol/L (25-35)
[2019-09-26] MEDS ORDERED: LEVAQUIN PO SCH (09:00)
[2019-09-26] MEDS: LANTUS INSULIN SUBQ SCH (10:08)
[2019-09-26] MEDS: EFFEXOR PO SCH (10:09)
[2019-09-26] MEDS: DILANTIN PO SCH (10:09)
[2019-09-26] MEDS: PRILOSEC PO SCH (10:09)
[2019-09-26] MEDS: ASPIRIN PO SCH (10:09)
[2019-09-26] MEDS: KEPPRA PO SCH (10:09)
[2019-09-26] MEDS: TYLENOL PO PRN (10:20)
[2019-09-26 10:53] LABS: BASO# 0.03 X1000 (0.0-0.2); BASO% 0.4 % (0.0-0.8); EOS# 0.18 X1000 (0.0-0.7); EOS% 2.4 % (0.0-10.0); HEMATOCRIT 32.2 % (37.0-47.0); HEMOGLOBIN 9.7 g/dL (12.0-16.0); IMM GRAN# 0.07 X1000 (0.0-0.04); IMM GRAN% 0.9 % (0.0-0.5); LYMPH# 1.23 X1000 (1.2-3.4); LYMPH% 16.4 % (20.5-51.1); MCH 26.3 PG (27-31); MCHC 30.1 g/dL (33-37); MCV 87.3 FL (81-99); MONO# 0.89 X1000 (0.11-0.59); MONO% 11.9 % (1.7-9.3); MPV 8.5 FL (7.4-10.4); NEUT# 5.08 X1000 (1.4-6.5); PLT 567 X1000 (130-400); RBC 3.69 XMIL (4.2-5.4); RDW 15.8 % (11.5-14.5); WBC 7.48 X1000 (4.8-10.8)
[2019-09-26 11:45] VITALS: BP 123/46
--- NOTE | 2019-09-26 14:29 | DISCHARGE SUMMARY ---
ADMISSION DATE: 09/08/2019 DISCHARGE DATE: 09/26/2019 CONSULTATIONS: 1. Neurology, Dr. Hendrix and Dr. Law. 2. Pulmonology, Dr. Rae. DISCHARGE DIAGNOSES: 1. Acute hypoxemic respiratory failure. 2. Sepsis due to pneumonia. 3. Left parietal stroke. 4. Seizure disorder. 5. Diabetes. 6. Hypothyroidism. 7. Gastroesophageal reflux disease. HOSPITAL COURSE: The patient presented initially by ambulance. The patient was nonresponsive. Sugars were over 800. She was found to be in DKA and also with hypothermia and shock. Also with acute kidney injury and mild rhabdomyolysis. Imaging was suggestive of pneumonia. It was felt the patient had a combination of DKA with dehydration as well as sepsis with pneumonia and shock. The patient did require intubation due to hypoxia. She was placed on insulin drip, broad-spectrum antibiotics. There was concern for anoxic brain injury because of posturing and poor reflexes, so Neurology was involved, but on neurology evaluation it was found the patient was having nonconvulsive seizures and MRI showed a parietal stroke. Patient was placed on antiepileptics and aspirin and statin for the stroke. The patient's respiratory did improve slowly. She was weaned off the ventilator successfully and eventually weaned down to room air. Patient's kidney failure resolved. After being placed on antiepileptics with Keppra and phenytoin, the patient did not have any further seizure disorder, she woke up and mental status normalized. Prior to discharge on the most recent chest x-ray, her pneumonia was essentially resolved. Given critical illness, it was decided to finish off a course of treatment with doxycycline. The patient did have some residual deficits from the stroke, primarily right upper extremity weakness and left footdrop. On CTA, which was done to evaluate for pulmonary embolism, no embolism was found, but there was a small 1 cm perihilar nodule noted in the right lung. There were no concerning features, but it was discussed with the patient that she would need a follow-up scan in a few months. Her chronic diabetes, hypothyroidism, and GERD were essentially stable during the hospitalization. Other studies of interest, MRA showed no blockage in the major arteries. Lower extremity ultrasound was unremarkable. Arterial study of the left arm was also essentially unremarkable. CT abdomen and pelvis showed no acute process. CT head and cervical spine regular as well as thoracic and lumbar spine showed no fracture or other acute abnormality. Because of the patient's residual deficits, it was decided that she would go to rehab. DISCHARGE VITAL SIGNS: 98.4 degrees, pulse 86, respirations 16, blood pressure 123/46, O2 saturation 95% on room air. DISCHARGE MEDICATIONS: Venlafaxine 75 mg p.o. b.i.d., metformin 1000 mg p.o. b.i.d., Lipitor 40 mg p.o. b.i.d., omeprazole 40 mg p.o. b.i.d., lisinopril 5 mg p.o. daily, Synthroid 155 mcg p.o. daily, aspirin 81 mg p.o. daily, phenytoin 400 mg p.o. b.i.d., doxycycline 100 mg p.o. b.i.d. for an additional 4 days. Insulin lispro 6 units subcu t.i.d. with meals. Keppra 500 mg p.o. b.i.d., Lantus 40 units subcutaneous daily, Tylenol 650 mg p.o. every 6 hours as needed. FOLLOWUP AND PLAN: The patient discharging to rehab to try and maximize mobility. If left footdrop persists, may up needing brace. Patient to follow up with PCP and Neurology. TIME SPENT: Next greater than 30 minutes spent arranging discharge and counseling patient.
--- NOTE | 2019-09-29 14:41 | EEG REPORT ---
DATE: 09/10/2019 REFERRING PHYSICIAN: DR. Johny Law. AGENCY SERVICE REPRESENTATIVE: Jeffrey Harper. BACKGROUND INFORMATION/TECHNIQUE: This is a digitally recorded portable routine EEG with video. Start time: 09/10/19 at 12:01 Stop time: 09/10/19 at 12:50 49 minutes of EEG. HISTORY: A 64-year-old female with altered mental status and seizures. EEG is repeated to evaluate for continuous seizure activity. MEDICATIONS: Include, Keppra, Cerebyx, and lorazepam. EEG FINDINGS: A posterior dominant alpha rhythm is not seen. The background consists of theta more than delta slowing with some intermixed faster frequencies. Left hemispheric slowing is seen frequently throughout the study. Frequent interictal epileptiform discharges within the left posterior temporoparietal head region is seen throughout the study. No seizures. Hyperventilation is not performed. Photic stimulation is not performed. No definite drowsiness patterns. Stage II sleep is not seen. The EKG demonstrates regular RR intervals. IMPRESSION AND CLINICAL CORRELATION: Abnormal routine EEG due to: 1. Frequent focal interictal epileptiform discharges within the left posterior temporoparietal head region indicative of focal cortical irritability These possess epileptogenic potential. No seizures seen on the current study. 2. Left hemispheric slowing suggestive of cortical or subcortical abnormality and a structural lesion in this area should be considered. This may also be the result of a postictal slowing. 3. Moderate generalized slowing indicative of a moderate nonspecific encephalopathy. 4. Compared to the prior study the current EEG has improved. cc: MD Johny Mcdonald III, MD MTDD
--- NOTE | 2019-09-29 14:42 | EEG REPORT ---
DATE: 09/10/2019 REFERRING PHYSICIAN: Johny Law III, MD CYBERATHLETE: Jeffrey Harper. BACKGROUND INFORMATION/TECHNIQUE: This is a digitally recorded long-term EEG monitoring in the ICU. Start time: 09/10/2019 at 17:17:06 Start time: 09/12/2019 at 10:23:00 There is 24 hours of interpretable EEG on this study. HISTORY: A 64-year-old female with altered mental status and status epilepticus on admission. This is a follow up long-term EEG recording to evaluate subclinical seizures and for comparison to prior EEG findings. EEG FINDINGS: A posterior dominant alpha rhythm is not seen. Initially, the background consists of theta, delta slowing with some intermixed faster frequencies. Later, the background consists of mixed alpha, beta and theta range frequencies Nearly continuous, improving to intermittent left hemispheric slowing is seen during the recording. Occasional brief periods of frequent interictal epileptiform discharges are seen emanating from the left posterior temporal parietal head region. These appear to resolve by 09/11/19 around noon. No electrographic seizures seen. Hyperventilation and photic stimulation are not performed. There are some background changes suggesting sleep state change. Stage II sleep is not seen. EKG demonstrates regular RR intervals. IMPRESSION AND CLINICAL CORRELATION: Abnormal routine EEG due to: 1. Interictal epileptiform discharges as detailed above, which resolve by 09/11/19 around noon. These are indicative of cortical irritability and possess epileptogenic potential. No seizures seen on the current study. 2. Intermittent left hemispheric slowing continues. 3. Moderate generalized slowing improving to [id number] generalized slowing during the record 4. Overall this EEG appears to be improved compared to the most recent EEG and previous ones. cc: MD Johny Mcdonald III, MD [facility]
== END 2019-09-26 14:09 | DRG 870 ==
LOC: SUPCPDRO → EDBD → ED 10:38 → SUATTDRO 16:05 → MERGE 16:05 → ICU 16:05 → 2N 09-21 18:53 → 3N 09-24 00:05
PROVIDERS: ATTEND Internal Medicine